=== PATIENT | female | born 1935 | race Hispanic/Latino ===

== ENCOUNTER → 2018-04-13 13:04 | Outpatient (CLI) | payer MEDICARE, OTHER, SELFPAY ==
--- NOTE | 2018-04-13 | DI.RAD.S_ITS ---
PROCEDURE: XR KNEE LT 3V INDICATIONS: KNEE PAIN, LEFT TECHNIQUE: 3 views of the knee were acquired. COMPARISON: None. FINDINGS: Bones: No fractures or dislocations. No suspicious bony lesions. Diffuse degenerative spurring. Moderate narrowing of the patellofemoral joint space. There is mild narrowing of medial lateral joint space. Soft tissues: No joint effusion. No suspicious soft tissue calcifications. 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 Dictated by: Mitch Medina M.D. on 04/13/2018 at 16:58 Approved by: Mitch Medina M.D. on 04/13/2018 at 16:59
== END ==
PROVIDERS: PCP Family Medicine; Visit Provider Family Medicine
DX: M25.562 Pain in left knee (principal); M17.12 Unilateral primary osteoarthritis, left knee
CPT/HCPCS: 73562

== ENCOUNTER 2018-11-28 11:14 | Emergency (ER) | payer MEDICARE, OTHER, SELFPAY ==
[2018-11-28] VITALS (8 sets, daily range): BP systolic 142–198; BP diastolic 58–99; PULSE 53–83; RESP 12–18; TEMP 36.7; O2SAT 98–99; BMI 19.7
--- NOTE | 2018-11-28 11:24 | DI.RAD.S_ITS ---
PROCEDURE: XR CHEST 1V INDICATIONS: chest pain TECHNIQUE: One view of the chest was acquired. COMPARISON: [facility], , CHEST 2 VIEW, 11/27/2006, 11:40. FINDINGS: Surgical changes and devices: None. Lungs and pleura: Lungs are clear. No pleural effusions or pneumothorax. Mediastinum: Mediastinal contours appear normal. Heart size is normal. Bones and chest wall: No suspicious bony lesions. Overlying soft tissues appear unremarkable. IMPRESSION: No acute disease. There are no imaging findings to explain patient's chest pain Dictated by: Gregg Hobbs M.D. on 11/28/2018 at 11:49 Approved by: Gregg Hobbs M.D. on 11/28/2018 at 11:50
[2018-11-28 11:50] LABS: Add Manual Diff / Slide Review NO; Basophils Absolute Auto 0 /uL (0-100); Basophils Percent Auto 0.7 % (0-2); Eosinophils Absolute Auto 100 /uL (0-450); Eosinophils Percent Auto 2.4 % (2-4); Hematocrit 37.6 % (36-46); Hemoglobin 12.5 g/dL (12.0-16.0); Lymphocytes Absolute Auto 1500 /uL (1100-4500); Mean Corpuscular HGB Conc 33.2 % (30-36); Mean Corpuscular Hemoglobin 31.7 PG (26-34); Mean Corpuscular Volume 95.6 fL (80-100); Monocytes Absolute Auto 200 /uL (0-900); Monocytes Percent Auto 5.8 % (3-14); Neutrophils Absolute Auto 2400 /uL (1500-7000); Neutrophils Percent Auto 55.1 % (50-75); Platelet Count 146 X10^3/uL (150-400); Red Blood Cell Count 3.94 X10^6/uL (4.0-5.2); Red Cell Distribution Width 13.3 % (11.6-14.8); White Blood Cell Count 4.3 X10^3/uL (4.5-11.0)
[2018-11-28 11:58] LABS: INR 0.9 (0.9-1.3)
--- NOTE | 2018-11-28 11:59 | ED.HA ---
HPI - Headache General Chief Complaint: Headache Stated Complaint: high bp, headache Time Seen by Provider: 11/28/18 11:35 History of Present Illness HPI Narrative: Patient an 83 old female who presents with headache and hypertension. Says she had right-sided headache all night last night. This morning she now right-sided neck pain. It hurts to turn her. No numbness tingling or weakness. No facial droop or speaking. She states that her blood pressure was elevated this morning so she took an extra lisinopril. She has no chest pain or heart palpitation. The patient actually does have a history of hypertension and intracranial aneurysm which was repaired. MD Complaint: headache Location: right Quality: throbbing Related Data Home Medications Medication Instructions Recorded Confirmed cholecalciferol (vitamin D3) 1,000 unit PO DAILY #0 05/06/11 11/28/18 [Vitamin D3] lisinopril 20 mg PO BID #0 05/06/11 11/28/18 raloxifene [Evista] 60 mg PO QPM #0 05/06/11 11/28/18 amlodipine [Norvasc] 5 mg PO QPM #0 08/09/16 11/28/18 atorvastatin [Lipitor] 10 mg PO BEDTIME #0 08/09/16 11/28/18 aspirin 325 mg PO QPM 11/28/18 11/28/18 ferrous sulfate 324 mg PO DAILY 11/28/18 11/28/18 folic acid 1 mg PO DAILY 11/28/18 11/28/18 omeprazole 20 mg PO BID 11/28/18 11/28/18 sulfasalazine 500 mg PO TID 11/28/18 11/28/18 Allergies Allergy/AdvReac Type Severity Reaction Status Date / Time ibuprofen [From MOTRIN] AdvReac Mild UPSET Unverified 11/28/18 11:21 STOMACH Review of Systems Review of Systems ROS Unobtainable: All systems reviewed & are unremarkable except as noted in HPI and below Constitutional Denies chills, Denies fever(s), Denies lethargy and Denies weakness Eyes Denies change in vision, Denies eye discharge, Denies irritation and Denies loss of vision Cardiovascular Denies chest pain, Denies irregular heart rhythm, Denies lightheadedness, Denies palpitations, Denies dyspnea, Denies dyspnea on exertion and Denies orthopnea Respiratory Denies cough, Denies dyspnea, Denies dyspnea on exertion and Denies wheezing Gastrointestinal Gastrointestinal: Denies abdominal pain, Denies change in bowel habits, Denies diarrhea, Denies nausea and Denies vomiting Genitourinary Denies hematuria, Denies flank pain, Denies urinary incontinence and Denies urinary urgency Musculoskeletal Denies back pain, Denies muscle weakness, Denies numbness and Denies tingling Integumentary/Breasts Denies pruritus, Denies erythema, Denies rash and Denies wounds Neurologic Denies loss of vision, Denies numbness, Denies tingling and Denies weakness Endocrine Denies palpitations Allergic/Immunologic Denies wheezing [facility] Medical History Hypertension (Acute) Intracranial aneurysm (Acute) Social History Smoking Status: Never smoker Social History Smoking Status: Never smoker Exam Initial Vital Signs Initial Vital Signs: Vital Signs Temperature 98.1 F 11/28/18 11:18 Pulse Rate 76 11/28/18 11:18 Respiratory Rate 14 11/28/18 11:18 Blood Pressure 198/82 H 11/28/18 11:18 Pulse Oximetry 99 11/28/18 11:18 GENERAL: Alert pleasant elderly female no acute distress HEENT: Head atraumatic,EOMI, pupils reactive, face symmetric, NECK: Right cervical neck muscle spasm decreased rotation due to pain pain reproducible to palpation. CARDIOVASCULAR: Regular rate and rhythm without murmurs, rubs or gallops. RESPIRATORY: Breath sounds equal bilaterally, no wheezes rales or rhonchi. ABDOMEN: Soft, nontender. Normoactive bowel sounds all 4 quadrants. No guarding or rebound. EXTREMITIES: Normal range of motion, no clubbing or edema. Neurovascularly intact NEUROLOGICAL: Alert and oriented x4.Normal gait and speech. Cranial nerves II through XII grossly intact. Good [id number], good [id number], strength equal bilaterally, no dysarthria or aphasia, sensation in tact to soft touch bilaterally, no visual changes, no facial droop SKIN: Warm, dry, no laceration, no petechiae, no rashes or lesions. Scores NIH Stroke Scale Level of Conciousness: Alert, keenly responsive Ask month/age: Answers both questions correctly. Open/close eyes, close hand: Performs both tasks correctly Best gaze horizontal: Normal Visual martinez: No visual loss Facial palsy: Normal symetrical movement Left arm drift: No drift for full 10 sec Right arm drift: No drift for full 10 sec Left leg drift: No drift for full 10 sec Right leg drift: No drift for full 10 sec Limb ataxia: Absent Sensory on face/arms/legs: Normal, no sensory loss Best language: No aphasia, normal Dysarthria: Normal Extinction or inattention: No abnormality Total NIH Stroke scale score: 0 Course Orders Ordered: ED Orders 11/28/18 11:24 XR chest 1V Stat EKG-12 Lead Stat 11/28/18 11:43 Complete Blood Count AUTO DIFF Stat Comprehensive Metabolic Panel Stat Lipase Stat Partial Thromboplastin Time Stat Prothrombin Time INR Stat Troponin & CK Cardiac Panel Stat Discontinued Medications Acetaminophen (Tylenol) 975 mg PO NOW ONE Stop: 11/28/18 12:04 Last Admin: 11/28/18 12:37 Dose: 975 mg Ketorolac Tromethamine (Toradol) 15 mg IV NOW ONE Stop: 11/28/18 14:58 Last Admin: 11/28/18 15:19 Dose: 15 mg Vital Signs - 8 hr 11/28/18 12:00 11/28/18 12:42 11/28/18 13:00 Pulse Rate 65 83 61 Respiratory Rate 12 Blood Pressure Blood Pressure [Left Arm] 172/62 H 186/99 H 142/58 H Pulse Oximetry 98 11/28/18 14:00 11/28/18 15:00 11/28/18 18:21 Pulse Rate 53 L 74 Respiratory Rate 13 16 Blood Pressure 191/78 H Blood Pressure [Left Arm] 144/58 H 147/60 H Pulse Oximetry 99 MDM - Headache Lab Data Attestation: I reviewed the patient's lab results. Result diagrams: 11/28/18 11:43 11/28/18 11:43 Lab Results 11/28/18 11/28/18 11/28/18 Range/Units 11:43 11:43 11:43 WBC 4.3 L (4.5-11.0) X10^3/uL RBC 3.94 L (4.0-5.2) X10^6/uL Hgb 12.5 (12.0-16.0) g/dL Hct 37.6 (36-46) % MCV 95.6 (80-100) fL MCH 31.7 (26-34) PG MCHC 33.2 (30-36) % RDW 13.3 (11.6-14.8) % Plt Count 146 L (150-400) X10^3/uL Neut % (Auto) 55.1 (50-75) % Lymph % (Auto) 36.0 (25-40) % [place] % (Auto) 5.8 (3-14) % Eos % (Auto) 2.4 (2-4) % Baso % (Auto) 0.7 (0-2) % Neut # (Auto) 2400 (2404-6869) /uL Lymph # (Auto) 1500 (7308-7719) /uL [place] # (Auto) 200 (0-900) /uL Eos # (Auto) 100 (0-450) /uL Baso # (Auto) 0 (0-100) /uL PT 10.0 L (10.1-12.7) SECONDS INR 0.9 (0.9-1.3) APTT 33 (26.4-36.2) SECONDS Sodium 140 (137-145) mmol/L Potassium 3.9 (3.4-5.1) mmol/L Chloride 105 (98-107) mmol/L Carbon Dioxide 25 (22-32) mmol/L BUN 17 (7-17) mg/dL Creatinine 0.90 (0.52-1.04) mg/dL Estimated GFR 59.9 L (>60) mL/min BUN/Creatinine Ratio 18.9 (6-22) Glucose 98 (80-110) mg/dL Calcium 9.1 (8.4-10.2) mg/dL Total Bilirubin 0.3 (0.2-1.3) mg/dL AST 34 (14-36) IU/L ALT 7 L (9-52) IU/L Alkaline Phosphatase 84 (38-126) U/L Total Creatine Kinase 67 (30-135) U/L CK-MB (CK-2) TNP CK-MB (CK-2) Rel Index TNP Troponin I < 0.012 (0.01-0.034) ng/mL Total Protein 7.7 (6.3-8.2) g/dL Albumin 4.4 (3.5-5.0) g/dL Globulin 3.3 (1.7-4.1) g/dL Albumin/Globulin Ratio 1.3 (1.0-2.8) Lipase 81 (23-300) U/L Urine Dip Bedside Urine Glucose Negative Bedside Urine Bilirubin - Negative Bedside Urine Ketone - Negative Urine Specific [place] 1.015 Bedside Urine Occult Blood - Negative Bedside Urine pH 6.0 Bedside Urine Protein - Negative Bedside Urine Urobilinogen - Negative Bedside Urine Nitrite - Negative Bedside Urine Leukocytes - Negative Esterase Imaging Data CT scan - head: Radiologist's impression: [facility] report: No acute intracranial abnormality. Left frontal meningioma. ECG Data Attestation: I personally reviewed and interpreted this ECG as follows: Prior ECG tracings: not available for review Interpretation: Normal sinus rhythm rate 74 CT interval [address] elevation no T-wave inversions no priors to compare minimal <1mm ST depression in V4 and V5 MDM Narrative Medical decision making narrative: The patient comes in with headache from last night in history of intracranial without repair at this time patient does need head CT. CT is down at [facility]. Patient agrees to transport to [facility] for head CT. She actually does have significant right trapezius neck spasm which is resolved after some massage. However she still is having pain on the right side of her head. She is given Toradol to help with that. Patient finally returns from [facility] negative head CT head is overall better have her blood pressure has increased. She is due for her nightly blood pressure medication. Discharge Plan Departure Patient Disposition: Home Clinical Impression: Headache Qualifiers: Headache type: unspecified Headache chronicity pattern: acute headache Intractability: not intractable Qualified Code(s): R51 - Headache Discharge Date/Time: 11/28/18 18:07 Interventions: ED Discharge Assessment Last Done: 11/28/18 18:21 Activity Restrictions/Additional Instructions: *You have been diagnosed with headache *What to do: At this time blood work and head CT are negative. I think her headache was from muscle spasm on the right-sided your neck *Continue to take medications as directed Tylenol 650 mg every 4-6 hours if needed for pain *Follow up with your primary care provider in 2-3 days *Return to ER if you should have worsening headache weakness, difficulty speaking, facial droop or any new, worsening or concerning symptoms Prescriptions: No Action lisinopril 10 MG tablet 20 mg PO BID Qty: 0 RF: 0 raloxifene [Evista] 60 MG tablet 60 mg PO QPM Qty: 0 RF: 0 cholecalciferol (vitamin D3) [Vitamin D3] 1,000 unit Tablet 1,000 unit PO DAILY Qty: 0 RF: 0 amlodipine [Norvasc] 5 MG tablet 5 mg PO QPM Qty: 0 RF: 0 atorvastatin [Lipitor] 10 MG tablet 10 mg PO BEDTIME Qty: 0 RF: 0 sulfasalazine 500 mg tablet 500 mg PO TID RF: 0 aspirin 325 mg tablet,delayed release (DR/EC) 325 mg PO QPM RF: 0 omeprazole 20 mg capsule,delayed release(DR/EC) 20 mg PO BID RF: 0 folic acid 1 mg tablet 1 mg PO DAILY RF: 0 ferrous sulfate 324 mg (65 mg iron) tablet,delayed release (DR/EC) 324 mg PO DAILY RF: 0 Referrals: Vaibhav Arevalo MD [Primary Care Provider] -
[2018-11-28 12:00] LABS: PTT Partial Thromboplastin Tim 33 SECONDS (26.4-36.2)
--- NOTE | 2018-11-28 12:02 | PC.NURSE ---
Patient reports a frontal headache last night took one tylenol. Woke this morning with right sided neck pain, worse with movement of neck and head. Tender to palpation of neck. reports frontal headache has resolved but ongoing neck pain. CMS intact. Negative neuro exam
[2018-11-28 12:03] LABS: Alanine Aminotransferase 7 IU/L (9-52); Albumin 4.4 g/dL (3.5-5.0); Albumin Globulin Ratio 1.3 (1.0-2.8); Alkaline Phosphatase 84 U/L (38-126); Aspartate Aminotransferase 34 IU/L (14-36); BUN Creatinine Ratio 18.9 (6-22); Bilirubin Total 0.3 mg/dL (0.2-1.3); Blood Urea Nitrogen 17 mg/dL (7-17); Calcium 9.1 mg/dL (8.4-10.2); Carbon Dioxide 25 mmol/L (22-32); Chloride 105 mmol/L (98-107); Creatine Kinase 67 U/L (30-135); Estimated Glomerular Filt Rate 59.9 mL/min (>60); Globulin 3.3 g/dL (1.7-4.1); Glucose 98 mg/dL (80-110); HEMOLYSIS 16 (0-50); Lipase 81 U/L (23-300); Potassium 3.9 mmol/L (3.4-5.1); Sodium 140 mmol/L (137-145); Total Protein 7.7 g/dL (6.3-8.2)
--- NOTE | 2018-11-28 12:04 | ED_ITS ---
HPI - Headache General Chief Complaint: Headache Stated Complaint: high bp, headache Time Seen by Provider: 11/28/18 11:35 History of Present Illness HPI Narrative: Patient an 83 old female who presents with headache and hypertension. Says she had right-sided headache all night last night. This morning she now right-sided neck pain. It hurts to turn her. No numbness tingling or weakness. No facial droop or speaking. She states that her blood pressure was elevated this morning so she took an extra lisinopril. She has no chest pain or heart palpitation. The patient actually does have a history of hypertension and intracranial aneurysm which was repaired. MD Complaint: headache Location: right Quality: throbbing Related Data Home Medications Medication Instructions Recorded Confirmed cholecalciferol (vitamin D3) 1,000 unit PO DAILY #0 05/06/11 11/28/18 [Vitamin D3] lisinopril 20 mg PO BID #0 05/06/11 11/28/18 raloxifene [Evista] 60 mg PO QPM #0 05/06/11 11/28/18 amlodipine [Norvasc] 5 mg PO QPM #0 08/09/16 11/28/18 atorvastatin [Lipitor] 10 mg PO BEDTIME #0 08/09/16 11/28/18 aspirin 325 mg PO QPM 11/28/18 11/28/18 ferrous sulfate 324 mg PO DAILY 11/28/18 11/28/18 folic acid 1 mg PO DAILY 11/28/18 11/28/18 omeprazole 20 mg PO BID 11/28/18 11/28/18 sulfasalazine 500 mg PO TID 11/28/18 11/28/18 Allergies Allergy/AdvReac Type Severity Reaction Status Date / Time ibuprofen [From MOTRIN] AdvReac Mild UPSET Unverified 11/28/18 11:21 STOMACH Review of Systems Review of Systems ROS Unobtainable: All systems reviewed & are unremarkable except as noted in HPI and below Constitutional Denies chills, Denies fever(s), Denies lethargy and Denies weakness Eyes Denies change in vision, Denies eye discharge, Denies irritation and Denies loss of vision Cardiovascular Denies chest pain, Denies irregular heart rhythm, Denies lightheadedness, Denies palpitations, Denies dyspnea, Denies dyspnea on exertion and Denies orthopnea Respiratory Denies cough, Denies dyspnea, Denies dyspnea on exertion and Denies wheezing Gastrointestinal Gastrointestinal: Denies abdominal pain, Denies change in bowel habits, Denies diarrhea, Denies nausea and Denies vomiting Genitourinary Denies hematuria, Denies flank pain, Denies urinary incontinence and Denies urinary urgency Musculoskeletal Denies back pain, Denies muscle weakness, Denies numbness and Denies tingling Integumentary/Breasts Denies pruritus, Denies erythema, Denies rash and Denies wounds Neurologic Denies loss of vision, Denies numbness, Denies tingling and Denies weakness Endocrine Denies palpitations Allergic/Immunologic Denies wheezing [facility] Medical History Hypertension (Acute) Intracranial aneurysm (Acute) Social History Smoking Status: Never smoker Social History Smoking Status: Never smoker Exam Initial Vital Signs Initial Vital Signs: Vital Signs Temperature 98.1 F 11/28/18 11:18 Pulse Rate 76 11/28/18 11:18 Respiratory Rate 14 11/28/18 11:18 Blood Pressure 198/82 H 11/28/18 11:18 Pulse Oximetry 99 11/28/18 11:18 GENERAL: Alert pleasant elderly female no acute distress HEENT: Head atraumatic,EOMI, pupils reactive, face symmetric, NECK: Right cervical neck muscle spasm decreased rotation due to pain pain reproducible to palpation. CARDIOVASCULAR: Regular rate and rhythm without murmurs, rubs or gallops. RESPIRATORY: Breath sounds equal bilaterally, no wheezes rales or rhonchi. ABDOMEN: Soft, nontender. Normoactive bowel sounds all 4 quadrants. No guarding or rebound. EXTREMITIES: Normal range of motion, no clubbing or edema. Neurovascularly intact NEUROLOGICAL: Alert and oriented x4.Normal gait and speech. Cranial nerves II through XII grossly intact. Good [id number], good udhg-[id number], strength equal bilaterally, no dysarthria or aphasia, sensation in tact to soft touch bilaterally, no visual changes, no facial droop SKIN: Warm, dry, no laceration, no petechiae, no rashes or lesions. Scores NIH Stroke Scale Level of Conciousness: Alert, keenly responsive Ask month/age: Answers both questions correctly. Open/close eyes, close hand: Performs both tasks correctly Best gaze horizontal: Normal Visual martinez: No visual loss Facial palsy: Normal symetrical movement Left arm drift: No drift for full 10 sec Right arm drift: No drift for full 10 sec Left leg drift: No drift for full 10 sec Right leg drift: No drift for full 10 sec Limb ataxia: Absent Sensory on face/arms/legs: Normal, no sensory loss Best language: No aphasia, normal Dysarthria: Normal Extinction or inattention: No abnormality Total NIH Stroke scale score: 0 Course Orders Ordered: ED Orders 11/28/18 11:24 XR chest 1V Stat EKG-12 Lead Stat 11/28/18 11:43 Complete Blood Count AUTO DIFF Stat Comprehensive Metabolic Panel Stat Lipase Stat Partial Thromboplastin Time Stat Prothrombin Time INR Stat Troponin & CK Cardiac Panel Stat Discontinued Medications Acetaminophen (Tylenol) 975 mg PO NOW ONE Stop: 11/28/18 12:04 Last Admin: 11/28/18 12:37 Dose: 975 mg Ketorolac Tromethamine (Toradol) 15 mg IV NOW ONE Stop: 11/28/18 14:58 Last Admin: 11/28/18 15:19 Dose: 15 mg Vital Signs - 8 hr 11/28/18 12:00 11/28/18 12:42 11/28/18 13:00 Pulse Rate 65 83 61 Respiratory Rate 12 Blood Pressure Blood Pressure [Left Arm] 172/62 H 186/99 H 142/58 H Pulse Oximetry 98 11/28/18 14:00 11/28/18 15:00 11/28/18 18:21 Pulse Rate 53 L 74 Respiratory Rate 13 16 Blood Pressure 191/78 H Blood Pressure [Left Arm] 144/58 H 147/60 H Pulse Oximetry 99 MDM - Headache Lab Data Attestation: I reviewed the patient's lab results. Result diagrams: 11/28/18 11:43 11/28/18 11:43 Lab Results 11/28/18 11/28/18 11/28/18 Range/Units 11:43 11:43 11:43 WBC 4.3 L (4.5-11.0) X10^3/uL RBC 3.94 L (4.0-5.2) X10^6/uL Hgb 12.5 (12.0-16.0) g/dL Hct 37.6 (36-46) % MCV 95.6 (80-100) fL MCH 31.7 (26-34) PG MCHC 33.2 (30-36) % RDW 13.3 (11.6-14.8) % Plt Count 146 L (150-400) X10^3/uL Neut % (Auto) 55.1 (50-75) % Lymph % (Auto) 36.0 (25-40) % [place] % (Auto) 5.8 (3-14) % Eos % (Auto) 2.4 (2-4) % Baso % (Auto) 0.7 (0-2) % Neut # (Auto) 2400 (2666-4925) /uL Lymph # (Auto) 1500 (9741-0773) /uL [place] # (Auto) 200 (0-900) /uL Eos # (Auto) 100 (0-450) /uL Baso # (Auto) 0 (0-100) /uL PT 10.0 L (10.1-12.7) SECONDS INR 0.9 (0.9-1.3) APTT 33 (26.4-36.2) SECONDS Sodium 140 (137-145) mmol/L Potassium 3.9 (3.4-5.1) mmol/L Chloride 105 (98-107) mmol/L Carbon Dioxide 25 (22-32) mmol/L BUN 17 (7-17) mg/dL Creatinine 0.90 (0.52-1.04) mg/dL Estimated GFR 59.9 L (>60) mL/min BUN/Creatinine Ratio 18.9 (6-22) Glucose 98 (80-110) mg/dL Calcium 9.1 (8.4-10.2) mg/dL Total Bilirubin 0.3 (0.2-1.3) mg/dL AST 34 (14-36) IU/L ALT 7 L (9-52) IU/L Alkaline Phosphatase 84 (38-126) U/L Total Creatine Kinase 67 (30-135) U/L CK-MB (CK-2) TNP CK-MB (CK-2) Rel Index TNP Troponin I < 0.012 (0.01-0.034) ng/mL Total Protein 7.7 (6.3-8.2) g/dL Albumin 4.4 (3.5-5.0) g/dL Globulin 3.3 (1.7-4.1) g/dL Albumin/Globulin Ratio 1.3 (1.0-2.8) Lipase 81 (23-300) U/L Urine Dip Bedside Urine Glucose Negative Bedside Urine Bilirubin - Negative Bedside Urine Ketone - Negative Urine Specific [place] 1.015 Bedside Urine Occult Blood - Negative Bedside Urine pH 6.0 Bedside Urine Protein - Negative Bedside Urine Urobilinogen - Negative Bedside Urine Nitrite - Negative Bedside Urine Leukocytes - Negative Esterase Imaging Data CT scan - head: Radiologist's impression: [facility] report: No acute intracranial abnormality. Left frontal meningioma. ECG Data Attestation: I personally reviewed and interpreted this ECG as follows: Prior ECG tracings: not available for review Interpretation: Normal sinus rhythm rate 74 [place] interval [address] elevation no T-wave inversions no priors to compare minimal <1mm ST depression in V4 and V5 MDM Narrative Medical decision making narrative: The patient comes in with headache from last night in history of intracranial without repair at this time patient does need head CT. CT is down at [facility]. Patient agrees to transport to [facility] for head CT. She actually does have significant right trapezius neck spasm which is resolved after some massage. However she still is having pain on the right side of her head. She is given Toradol to help with that. Patient finally returns from [facility] negative head CT head is overall better have her blood pressure has increased. She is due for her nightly blood pressure medication. Discharge Plan Departure Patient Disposition: Home Clinical Impression: Headache Qualifiers: Headache type: unspecified Headache chronicity pattern: acute headache Intractability: not intractable Qualified Code(s): R51 - Headache Discharge Date/Time: 11/28/18 18:07 Interventions: ED Discharge Assessment Last Done: 11/28/18 18:21 Activity Restrictions/Additional Instructions: *You have been diagnosed with headache *What to do: At this time blood work and head CT are negative. I think her headache was from muscle spasm on the right-sided your neck *Continue to take medications as directed Tylenol 650 mg every 4-6 hours if needed for pain *Follow up with your primary care provider in 2-3 days *Return to ER if you should have worsening headache weakness, difficulty speaking, facial droop or any new, worsening or concerning symptoms Prescriptions: No Action lisinopril 10 MG tablet 20 mg PO BID Qty: 0 RF: 0 raloxifene [Evista] 60 MG tablet 60 mg PO QPM Qty: 0 RF: 0 cholecalciferol (vitamin D3) [Vitamin D3] 1,000 unit Tablet 1,000 unit PO DAILY Qty: 0 RF: 0 amlodipine [Norvasc] 5 MG tablet 5 mg PO QPM Qty: 0 RF: 0 atorvastatin [Lipitor] 10 MG tablet 10 mg PO BEDTIME Qty: 0 RF: 0 sulfasalazine 500 mg tablet 500 mg PO TID RF: 0 aspirin 325 mg tablet,delayed release (DR/EC) 325 mg PO QPM RF: 0 omeprazole 20 mg capsule,delayed release(DR/EC) 20 mg PO BID RF: 0 folic acid 1 mg tablet 1 mg PO DAILY RF: 0 ferrous sulfate 324 mg (65 mg iron) tablet,delayed release (DR/EC) 324 mg PO DAILY RF: 0 Referrals: Vaibhav Arevalo MD [Primary Care Provider] -
[2018-11-28 12:14] LABS: Troponin I < 0.012 ng/mL (0.01-0.034)
[2018-11-28] MEDS: ACETAMINOPHEN 325 MG TABLET 975 MG PO (12:37)
[2018-11-28] MEDS: KETOROLAC 60 MG/2 ML VIAL 15 MG IV (15:19)
--- NOTE | 2018-11-28 17:51 | PC.NURSE ---
Patient returns to ED from transfer to [facility] for CT. Reports some improvement in pain on right side of neck and headache.
== END 2018-11-28 18:07 | disposition home or self-care (01) ==
PROVIDERS: Emergency Provider Emergency Medicine; PCP Family Medicine
DX: R51 Headache (principal); I10 Essential (primary) hypertension; M79.2 Neuralgia and neuritis, unspecified
CPT/HCPCS: 36591; 71045; 80053; 81003; 82550; 83690; 84484; 85025; 85610; 85730; 93005; 93010; 96374; 99284; 99285; J1885

== ENCOUNTER 2019-04-11 20:02 | Emergency (ER) | payer MEDICARE, OTHER, SELFPAY ==
[2019-04-11 20:08] VITALS: BP 171/69; PULSE 80; RESP 18; TEMP 36.3; O2SAT 97; BMI 19.3
[2019-04-11 20:32] LABS: Add Manual Diff / Slide Review NO; Basophils Absolute Auto 0 /uL (0-100); Basophils Percent Auto 0.5 % (0-2); Eosinophils Absolute Auto 100 /uL (0-450); Eosinophils Percent Auto 2.4 % (2-4); Hematocrit 35.9 % (36-46); Hemoglobin 11.9 g/dL (12.0-16.0); Lymphocytes Absolute Auto 1500 /uL (1100-4500); Lymphocytes Percent Auto 27.3 % (25-40); Mean Corpuscular HGB Conc 33.3 % (30-36); Mean Corpuscular Hemoglobin 31.8 PG (26-34); Mean Corpuscular Volume 95.4 fL (80-100); Monocytes Absolute Auto 300 /uL (0-900); Monocytes Percent Auto 5.9 % (3-14); Neutrophils Absolute Auto 3600 /uL (1500-7000); Neutrophils Percent Auto 63.9 % (50-75); Platelet Count 143 X10^3/uL (150-400); Red Blood Cell Count 3.76 X10^6/uL (4.0-5.2); Red Cell Distribution Width 12.5 % (11.6-14.8); White Blood Cell Count 5.7 X10^3/uL (4.5-11.0)
[2019-04-11 20:40] LABS: INR 0.8 (0.9-1.3); Prothrombin Time 9.5 SECONDS (10.1-12.7)
[2019-04-11 20:42] LABS: PTT Partial Thromboplastin Tim 31 SECONDS (26.4-36.2)
[2019-04-11 20:44] LABS: Alanine Aminotransferase 6 IU/L (9-52); Albumin 4.3 g/dL (3.5-5.0); Albumin Globulin Ratio 1.3 (1.0-2.8); Alkaline Phosphatase 99 U/L (38-126); Aspartate Aminotransferase 36 IU/L (14-36); BUN Creatinine Ratio 18.2 (6-22); Bilirubin Total 0.4 mg/dL (0.2-1.3); Blood Urea Nitrogen 20 mg/dL (7-17); Carbon Dioxide 26 mmol/L (22-32); Chloride 104 mmol/L (98-107); Estimated Glomerular Filt Rate 47.6 mL/min (>60); Globulin 3.3 g/dL (1.7-4.1); Glucose 137 mg/dL (80-110); HEMOLYSIS 39 (0-50); Lipase 117 U/L (23-300); Potassium 3.7 mmol/L (3.4-5.1); Sodium 142 mmol/L (137-145); Total Protein 7.6 g/dL (6.3-8.2)
[2019-04-11] MEDS: ONDANSETRON 4 MG/2 ML INJ IV (21:01)
--- NOTE | 2019-04-11 21:04 | PC.NURSE ---
Pt arrived to ED with L flank pain radiating to L abd. h/o kidney stones. 03/23 pain. labs drawn and UA obtained in triage. IV placed and zofran given. verbal order for torodol. MD made aware. awaiting MD assessment
[2019-04-11] MEDS: KETOROLAC 60 MG/2 ML VIAL 15 MG IV (21:07)
--- NOTE | 2019-04-11 21:26 | ED_ITS ---
HPI - Abdominal Pain General Chief Complaint: Abdominal Pain Stated Complaint: LT SIDED PAIN Time Seen by Provider: 04/11/19 21:03 Source: patient Mode of arrival: ambulatory Limitations: no limitations History of Present Illness HPI narrative: Patient is an 83-year-old female with history of kidney stones presenting with left upper quadrant pain which started abruptly at 6:00 p.m. this evening. She says this feels similar to her previous kidney stones. She denies any nausea or vomiting. She was well earlier in the day. No hematuria or pain frequent urination. MD complaint: abdominal pain Onset (ago): hour(s) Pain Consistency: now resolved Related Data Home Medications Medication Instructions Recorded Confirmed cholecalciferol (vitamin D3) 1,000 unit PO DAILY #0 05/06/11 11/28/18 [Vitamin D3] lisinopril 20 mg PO BID #0 05/06/11 11/28/18 raloxifene [Evista] 60 mg PO QPM #0 05/06/11 11/28/18 amlodipine [Norvasc] 5 mg PO QPM #0 08/09/16 11/28/18 atorvastatin [Lipitor] 10 mg PO BEDTIME #0 08/09/16 11/28/18 aspirin 325 mg PO QPM 11/28/18 11/28/18 ferrous sulfate 324 mg PO DAILY 11/28/18 11/28/18 folic acid 1 mg PO DAILY 11/28/18 11/28/18 omeprazole 20 mg PO BID 11/28/18 11/28/18 sulfasalazine 500 mg PO TID 11/28/18 11/28/18 Previous Rx's Medication Instructions Recorded hydrocodone-acetaminophen [[place]] 1 tab PO Q6H PRN #10 tab 04/11/19 ondansetron 4 mg PO Q8H PRN #10 tab 04/11/19 tamsulosin [Flomax] 0.4 mg PO DAILY #10 cap 04/11/19 Allergies Allergy/AdvReac Type Severity Reaction Status Date / Time ibuprofen [From MOTRIN] AdvReac Mild UPSET Verified 04/11/19 20:08 STOMACH Review of Systems Review of Systems Narrative: GENERAL: Denies chills, fatigue, malaise, fever, sweats, travel HEENT: Denies sinus pain, ear pain, sore throat, difficulty swallowing, neck pain RESPIRATORY: Denies dyspnea, cough, wheezing, hemoptysis, sputum. CARDIOVASCULAR: Denies chest pain, palpitations, orthopnea, edema GASTROINTESTINAL: See HPI : Denies dysuria, frequency, incontinence, hematuria, urinary retention, flank pain. MUSCULOSKELETAL: Denies weakness, joint pain, or bony pain SKIN: No rash, no erythema, no pruritus NEUROLOGIC: Denies weakness, dizziness, headache, numbness, change in speech, confusion PSYCHIATRIC: No concerning psychosocial issues. 12 point review of systems is negative except for those stated above and HPI [facility] Medical History Hypertension (Acute) Intracranial aneurysm (Acute) Kidney stones (Acute) Social History Smoking Status: Never smoker Social History Smoking Status: Never smoker Exam Initial Vital Signs Initial Vital Signs: Vital Signs Temperature 97.3 F L 04/11/19 20:08 Pulse Rate 80 04/11/19 20:08 Respiratory Rate 18 04/11/19 20:08 Blood Pressure 171/69 H 04/11/19 20:08 Pulse Oximetry 97 04/11/19 20:08 GENERAL: Alert pleasant elderly female no distress HEENT: Head atraumatic,EOMI, pupils reactive, face symmetric CARDIOVASCULAR: Regular rate and rhythm without murmurs, rubs or gallops. RESPIRATORY: Breath sounds equal bilaterally, no wheezes rales or rhonchi. ABDOMEN: Soft, mild left upper quadrant pain no guarding no rebound : No CVA tenderness, no left-sided pain EXTREMITIES: Normal range of motion, no clubbing or edema. Neurovascularly intact NEUROLOGICAL: Alert and oriented x4.Normal gait and speech. Cranial nerves II through XII grossly intact. SKIN: Warm, dry, no laceration, no petechiae, no rashes or lesions. Course Orders Ordered: ED Orders 04/11/19 20:14 EKG-12 Lead Stat 04/11/19 20:22 Complete Blood Count AUTO DIFF Stat Comprehensive Metabolic Panel Stat Lipase Stat Partial Thromboplastin Time Stat Prothrombin Time INR Stat 04/11/19 21:32 CT kidney ureter bladder (KUB) Stat Discontinued Medications Hydrocodone Bitart/Acetaminophen (Vicodin Prepack) 1 bottle MISC SEEINSTR ONE Stop: 04/11/19 22:37 Last Admin: 04/11/19 22:59 Dose: 1 bottle Documented by: LOYD Ketorolac Tromethamine (Toradol) 15 mg IV NOW ONE Stop: 04/11/19 21:03 Last Admin: 04/11/19 21:07 Dose: 15 mg Documented by: AHSAN Ondansetron HCl (Zofran) 4 mg IV NOW ONE Stop: 04/11/19 20:57 Last Admin: 04/11/19 21:01 Dose: 4 mg Documented by: AHSAN Ondansetron HCl (Zofran Odt Prepack) 1 bottle MISC SEEINSTR ONE Stop: 04/11/19 22:37 Last Admin: 04/11/19 22:59 Dose: 1 bottle Documented by: LOYD Vital Signs Vital signs: Vital Signs - 8 hr 04/11/19 20:08 04/11/19 22:59 Temperature 97.3 F L Pulse Rate 80 73 Respiratory Rate 18 Blood Pressure 171/69 H 158/53 H Pulse Oximetry 97 MDM - Abdominal Pain Lab Data Attestation: I reviewed the patient's lab results. Result diagrams: 04/11/19 20:22 04/11/19 20:22 Labs: Lab Results 04/11/19 04/11/19 04/11/19 Range/Units 20:22 20:22 20:22 WBC 5.7 (4.5-11.0) X10^3/uL RBC 3.76 L (4.0-5.2) X10^6/uL Hgb 11.9 L (12.0-16.0) g/dL Hct 35.9 L (36-46) % MCV 95.4 (80-100) fL MCH 31.8 (26-34) PG MCHC 33.3 (30-36) % RDW 12.5 (11.6-14.8) % Plt Count 143 L (150-400) X10^3/uL Neut % (Auto) 63.9 (50-75) % Lymph % (Auto) 27.3 (25-40) % [place] % (Auto) 5.9 (3-14) % Eos % (Auto) 2.4 (2-4) % Baso % (Auto) 0.5 (0-2) % Neut # (Auto) 3600 (8981-4471) /uL Lymph # (Auto) 1500 (2664-0985) /uL [place] # (Auto) 300 (0-900) /uL Eos # (Auto) 100 (0-450) /uL Baso # (Auto) 0 (0-100) /uL PT 9.5 L (10.1-12.7) SECONDS INR 0.8 L (0.9-1.3) APTT 31 D (26.4-36.2) SECONDS Sodium 142 (137-145) mmol/L Potassium 3.7 (3.4-5.1) mmol/L Chloride 104 (98-107) mmol/L Carbon Dioxide 26 (22-32) mmol/L BUN 20 H (7-17) mg/dL Creatinine 1.10 H (0.52-1.04) mg/dL Estimated GFR 47.6 L (>60) mL/min BUN/Creatinine Ratio 18.2 (6-22) Glucose 137 H (80-110) mg/dL Calcium 9.0 (8.4-10.2) mg/dL Total Bilirubin 0.4 (0.2-1.3) mg/dL AST 36 (14-36) IU/L ALT 6 L (9-52) IU/L Alkaline Phosphatase 99 (38-126) U/L Total Protein 7.6 (6.3-8.2) g/dL Albumin 4.3 (3.5-5.0) g/dL Globulin 3.3 (1.7-4.1) g/dL Albumin/Globulin Ratio 1.3 (1.0-2.8) Lipase 117 (23-300) U/L Point of care testing: Urine Dip Bedside Urine Glucose Negative Bedside Urine Bilirubin - Negative Bedside Urine Ketone - Negative Urine Specific [place] 1.020 Bedside Urine Occult Blood +++ Bedside Urine pH 6.0 Bedside Urine Protein - Negative Bedside Urine Urobilinogen - Negative Bedside Urine Nitrite - Negative Bedside Urine Leukocytes +/- [address] scan - abdomen: Radiologist's impression: PROCEDURE: CT KIDNEY URETER BLADDER (KUB) INDICATIONS: left flank pain TECHNIQUE: Noncontrast 5 mm thick sections acquired from the diaphragms to the symphysis. 5 mm thick coronal and sagittal reformats were then performed. For radiation dose reduction, the following was used: automated exposure control, adjustment of mA and/or kV according to patient size. COMPARISON: None. FINDINGS: Image quality: Excellent. Lung bases: Lung bases are clear. Heart size is normal. Urinary system: Both kidneys are normal in size. A nonobstructing 4 mm in diameter calculus is present within the left lower pole. No right hydronephrosis. There is mild left pelviectasis. A 6 mm diameter calculus is present within the proximal left ureter (series 2, image 39). The downstream left ureter demonstrates normal caliber. The bladder is decompressed. No bladder calculi. Other solid organs: Liver is normal in size. Gallbladder is surgically absent. Pancreas is normal in contours. Spleen is normal in size. No adrenal nodules. Peritoneum and bowel: Unenhanced bowel loops demonstrate normal wall thickness and caliber. The appendix is not visualized; however there is no discrete right lower quadrant fluid or fat stranding to suggest acute appendicitis. There are extensive sigmoid diverticula. No evidence for diverticulitis. No free fluid or air. Nodes and vessels: No retroperitoneal or mesenteric adenopathy by size criteria. Aorta and inferior vena cava are normal in caliber. There are scattered atheromatous calcifications throughout the aorta and iliac arteries bilaterally. Abdominal wall: No ventral hernias. Pelvis: No free pelvic fluid. No inguinal hernias or adenopathy. Bones: No suspicious bony lesions. No vertebral body compression fractures. Severe degenerative changes are present throughout the thoracolumbar spine. IMPRESSION: 1. Left ureterolithiasis with mild pelviectasis. These findings suggest probable intermittent ureteral obstruction of the proximal left ureter. No fat stranding to suggest calyceal rupture. 2. Nonobstructing left nephrolithiasis. 2. Diverticulosis. No acute diverticulitis. These findings were discussed with Dr. Elliott at 9:57 PM on 04/11/19. Dictated by: Asha Brownlee M.D. on 04/11/2019 at 21:52 MDM Narrative Medical decision making narrative: Patient has not had any further pain in the ED after Toradol. Radiologist called to inform me of a 6 mm kidney stone. It looks like it is about to start moving really has not started yet no hydronephrosis. Patient's creatinine up a little today is 1.1 previously 0.9. She previously saw Urology Dr. Harp who has since retired. has a urologist up in [place] they will likely get in touch with that Urology group . Discharge Plan Departure Patient Disposition: Home Clinical Impression: Calculus of kidney Discharge Date/Time: 04/11/19 23:00 Activity Restrictions/Additional Instructions: *Increase fluid intake *Call urology office tomorrow, to schedule follow-up appointment. Strain urine, try to catch stone -If you should have fever, or pain is uncontrolled with medication at home or any other concerning symptoms return to ER for further evaluation MEDICATIONS Take Motrin 600 mg every 8 hours as needed for pain Take [place] every 6 hours if needed for severe pain, you can take 1/2 tablet if needed Take Zofran every 8 hours if needed for nausea Take fluids 0.4 mg once a day for 1 week to help with passage of stone CONTROLLED SUBSTANCE DISCHARGE (Narcotoic/benzodiazepine) 1. You have been prescribed narcotic medications, it does have acetaminophen/Tylenol/paracetamol in it so do not take extra Tylenol or Tylenol containing products 2. Please understand that we cannot provide further refills of narcotics, benzodiazepines or controlled substances through the ED and her pain management will need to be through your provider. 3. While on these medications you cannot drive or operate heavy machinery. 4. You cannot sign legal documents or perform any duties such as this. 5. As long as you're taking opiate pain medications he should also be taking a stool softener such as Colace, Dulcolax, MiraLAX or prune juice, to help avoid constipation. Prescriptions: New tamsulosin [Flomax] 0.4 mg capsule 0.4 mg PO DAILY Qty: 10 RF: 0 hydrocodone-acetaminophen [[place]] 5-325 mg tablet 1 tab PO Q6H PRN (Reason: pain) Qty: 10 RF: 0 ondansetron 4 mg tablet,disintegrating 4 mg PO Q8H PRN (Reason: nausea and vomiting) Qty: 10 RF: 0 No Action lisinopril 10 MG tablet 20 mg PO BID Qty: 0 RF: 0 raloxifene [Evista] 60 MG tablet 60 mg PO QPM Qty: 0 RF: 0 cholecalciferol (vitamin D3) [Vitamin D3] 1,000 unit Tablet 1,000 unit PO DAILY Qty: 0 RF: 0 amlodipine [Norvasc] 5 MG tablet 5 mg PO QPM Qty: 0 RF: 0 atorvastatin [Lipitor] 10 MG tablet 10 mg PO BEDTIME Qty: 0 RF: 0 sulfasalazine 500 mg tablet 500 mg PO TID RF: 0 aspirin 325 mg tablet,delayed release (DR/EC) 325 mg PO QPM RF: 0 omeprazole 20 mg capsule,delayed release(DR/EC) 20 mg PO BID RF: 0 folic acid 1 mg tablet 1 mg PO DAILY RF: 0 ferrous sulfate 324 mg (65 mg iron) tablet,delayed release (DR/EC) 324 mg PO DAILY RF: 0 Referrals: Pauline Isbell MD [Non-Staff] - Wild Mcgee MD [Non-Staff] - Vaibhav Arevalo MD [Primary Care Provider] -
--- NOTE | 2019-04-11 21:32 | DI.CT.S_ITS ---
PROCEDURE: CT KIDNEY URETER BLADDER (KUB) INDICATIONS: left flank pain TECHNIQUE: Noncontrast 5 mm thick sections acquired from the diaphragms to the symphysis. 5 mm thick coronal and sagittal reformats were then performed. For radiation dose reduction, the following was used: automated exposure control, adjustment of mA and/or kV according to patient size. COMPARISON: None. FINDINGS: Image quality: Excellent. Lung bases: Lung bases are clear. Heart size is normal. Urinary system: Both kidneys are normal in size. A nonobstructing 4 mm in diameter calculus is present within the left lower pole. No right hydronephrosis. There is mild left pelviectasis. A 6 mm diameter calculus is present within the proximal left ureter (series 2, image 39). The downstream left ureter demonstrates normal caliber. The bladder is decompressed. No bladder calculi. Other solid organs: Liver is normal in size. Gallbladder is surgically absent. Pancreas is normal in contours. Spleen is normal in size. No adrenal nodules. Peritoneum and bowel: Unenhanced bowel loops demonstrate normal wall thickness and caliber. The appendix is not visualized; however there is no discrete right lower quadrant fluid or fat stranding to suggest acute appendicitis. There are extensive sigmoid diverticula. No evidence for diverticulitis. No free fluid or air. Nodes and vessels: No retroperitoneal or mesenteric adenopathy by size criteria. Aorta and inferior vena cava are normal in caliber. There are scattered atheromatous calcifications throughout the aorta and iliac arteries bilaterally. Abdominal wall: No ventral hernias. Pelvis: No free pelvic fluid. No inguinal hernias or adenopathy. Bones: No suspicious bony lesions. No vertebral body compression fractures. Severe degenerative changes are present throughout the thoracolumbar spine. IMPRESSION: 1. Left ureterolithiasis with mild pelviectasis. These findings suggest probable intermittent ureteral obstruction of the proximal left ureter. No fat stranding to suggest calyceal rupture. 2. Nonobstructing left nephrolithiasis. 2. Diverticulosis. No acute diverticulitis. These findings were discussed with Dr. Elliott at 9:57 PM on 04/11/19. Dictated by: Asha Brownlee M.D. on 04/11/2019 at 21:52 Approved by: Asha Brownlee M.D. on 04/11/2019 at 21:58
[2019-04-11 22:59] VITALS: BP 158/53; PULSE 73
[2019-04-11] MEDS: ONDANSETRON 4 MG ODT PREPACK 1 BOTTLE MISC (22:59)
[2019-04-11] MEDS: HYDROCODONE/ACET 5/325 PREPACK 1 BOTTLE MISC (22:59)
== END 2019-04-11 23:00 | disposition home or self-care (01) ==
PROVIDERS: Emergency Provider Emergency Medicine; Family Provider Family Medicine; PCP Family Medicine
DX: N20.0 Calculus of kidney (principal); Z87.442 Personal history of urinary calculi
CPT/HCPCS: 36415; 74176; 80053; 81003; 83690; 85025; 85610; 85730; 93005; 96374; 96375; 99282; 99285; J1885; J2405

== ENCOUNTER 2019-04-15 17:20 | Emergency (ER) | payer MEDICARE, OTHER, SELFPAY ==
[2019-04-15 17:28] VITALS: BP 184/66; PULSE 86; RESP 18; TEMP 36.6; O2SAT 97; BMI 19.3
[2019-04-15 17:51] LABS: Add Manual Diff / Slide Review NO; Basophils Absolute Auto 100 /uL (0-100); Basophils Percent Auto 0.8 % (0-2); Eosinophils Absolute Auto 100 /uL (0-450); Eosinophils Percent Auto 0.8 % (2-4); Hematocrit 33.7 % (36-46); Hemoglobin 11.5 g/dL (12.0-16.0); Lymphocytes Absolute Auto 1500 /uL (1100-4500); Lymphocytes Percent Auto 17.4 % (25-40); Mean Corpuscular HGB Conc 34.1 % (30-36); Mean Corpuscular Hemoglobin 31.8 PG (26-34); Mean Corpuscular Volume 93.3 fL (80-100); Monocytes Absolute Auto 600 /uL (0-900); Monocytes Percent Auto 7.1 % (3-14); Neutrophils Absolute Auto 6300 /uL (1500-7000); Neutrophils Percent Auto 73.9 % (50-75); Platelet Count 134 X10^3/uL (150-400); Red Blood Cell Count 3.61 X10^6/uL (4.0-5.2); Red Cell Distribution Width 12.7 % (11.6-14.8); White Blood Cell Count 8.5 X10^3/uL (4.5-11.0)
[2019-04-15 18:02] LABS: Alanine Aminotransferase 7 IU/L (9-52); Albumin Globulin Ratio 1.1 (1.0-2.8); Alkaline Phosphatase 70 U/L (38-126); Aspartate Aminotransferase 32 IU/L (14-36); BUN Creatinine Ratio 15.6 (6-22); Bilirubin Total 0.4 mg/dL (0.2-1.3); Blood Urea Nitrogen 28 mg/dL (7-17); Calcium 8.8 mg/dL (8.4-10.2); Carbon Dioxide 23 mmol/L (22-32); Chloride 103 mmol/L (98-107); Estimated Glomerular Filt Rate 26.9 mL/min (>60); Globulin 3.5 g/dL (1.7-4.1); Glucose 115 mg/dL (80-110); HEMOLYSIS 16 (0-50); Lipase 41 U/L (23-300); Potassium 3.8 mmol/L (3.4-5.1); Sodium 139 mmol/L (137-145); Total Protein 7.5 g/dL (6.3-8.2)
[2019-04-15] MEDS: ONDANSETRON 4 MG/2 ML INJ IV (18:12)
[2019-04-15] MEDS: MORPHINE 4 MG/ML INJ IV (18:12)
[2019-04-15] MEDS: SODIUM CHLORIDE 0.9% 500 ML 1000 ML IV ×2 (18:13→19:11)
[2019-04-15 18:15] VITALS: BP 169/68; PULSE 78; RESP 18; O2SAT 96
[2019-04-15 18:18] LABS: Bacteria Urine Few (2-10); Culture Indicated Urine Specimen Cultured; RBC Urine 10-30/HPF (0-5/HPF); WBC Urine 5-10/HPF (0-5/HPF)
[2019-04-15] MEDS: HYDROCODONE/ACET 5/325 TABLET 1 TAB PO (19:16)
[2019-04-15 20:11] VITALS: BP 148/52; PULSE 62; RESP 16; O2SAT 98
[2019-04-15 20:26] LABS: BUN Creatinine Ratio 14.4 (6-22); Blood Urea Nitrogen 26 mg/dL (7-17); Calcium 8.2 mg/dL (8.4-10.2); Carbon Dioxide 22 mmol/L (22-32); Chloride 107 mmol/L (98-107); Estimated Glomerular Filt Rate 26.9 mL/min (>60); Glucose 108 mg/dL (80-110); HEMOLYSIS 39 (0-50); Sodium 140 mmol/L (137-145)
--- NOTE | 2019-04-15 20:53 | ED_ITS ---
HPI - Abdominal Pain <JUAN Mendez - Last Filed: 04/15/19 21:24> General Chief Complaint: Abdominal Pain Stated Complaint: Kidney stone Time Seen by Provider: 04/15/19 17:51 Source: patient and family Mode of arrival: ambulatory Limitations: no limitations History of Present Illness HPI narrative: This is a 83-year-old female, nonsmoker, who presents to ED with her spouse with chief complain of left flank and abdominal pain. Patient was diagnosed with left kidney stone 4 days ago and discharged to home with prepack Mabank and a prescription for Mabank. Patient reports that the pain had improved after discharged to home and she has been taking [id number] Tylenol only. Today severe pain as 05/23 recurred and she is back to ED. Patient reports she had completed taking prepack Mabank but has not taken additional Mabank. Patient denies hematuria, fever, chills, nausea, vomiting. Patient has an appointment with [facility] urologist on Monday. Patient states is able to urinate without difficulty. Related Data Home Medications Medication Instructions Recorded Confirmed cholecalciferol (vitamin D3) 1,000 unit PO DAILY #0 05/06/11 11/28/18 [Vitamin D3] lisinopril 20 mg PO BID #0 05/06/11 11/28/18 raloxifene [Evista] 60 mg PO QPM #0 05/06/11 11/28/18 amlodipine [Norvasc] 5 mg PO QPM #0 08/09/16 11/28/18 atorvastatin [Lipitor] 10 mg PO BEDTIME #0 08/09/16 11/28/18 aspirin 325 mg PO QPM 11/28/18 11/28/18 ferrous sulfate 324 mg PO DAILY 11/28/18 11/28/18 folic acid 1 mg PO DAILY 11/28/18 11/28/18 omeprazole 20 mg PO BID 11/28/18 11/28/18 sulfasalazine 500 mg PO TID 11/28/18 11/28/18 Previous Rx's Medication Instructions Recorded hydrocodone-acetaminophen [Mabank] 1 tab PO Q6H PRN #10 tab 04/11/19 ondansetron 4 mg PO Q8H PRN #10 tab 04/11/19 tamsulosin [Flomax] 0.4 mg PO DAILY #10 cap 04/11/19 Allergies Allergy/AdvReac Type Severity Reaction Status Date / Time ibuprofen [From MOTRIN] AdvReac Mild UPSET Verified 04/15/19 17:30 STOMACH Review of Systems <JUAN Mendez - Last Filed: 04/15/19 21:24> Review of Systems Narrative: General: Denies fever, chills, fatigue, malaise, sweats. HEENT: Denies sinus pain, ear pain, sore throat, difficulty swallowing, di zziness. Respiratory: Denies dyspnea, cough, wheezing, hemoptysis, sputum. Cardiovascular: Denies chest pain, palpitations, orthopnea, edema. Gastrointestinal: Denies nausea, vomiting, abdominal pain, diarrhea, constipation, melena. : See HPI. Denies dysuria, frequency, incontinence, hematuria, urinary retention. Musculoskeletal: Denies weakness, joint pain or bony pain. Skin: Denies rash, skin lesions, or other. Neurologic: Denies weakness, headache, numbness, change in speech, confusion, seizures, incoordination. Psychiatric: No concerning psychosocial issues. 12-point review of systems is negative except for those stated above. PFSH <JUAN Mendez - Last Filed: 04/15/19 21:24> Medical History (Updated 04/15/19 @ 21:10 by JUAN Mendez) Hypertension (Acute) Intracranial aneurysm (Acute) Kidney stones (Acute) Surgical History History of lithotripsy (Acute) History of lumpectomy of right breast (Acute) Social History Smoking Status: Never smoker Social History Smoking Status: Never smoker Exam <JUAN Mendez - Last Filed: 04/15/19 21:24> Narrative Exam Narrative: General appearance: well developed, well nourished, in no acute distress. Head: normocephalic, atraumatic, no scalp lesions, non-tender. Eye: pupil equal, round. EOMI. Nose: nares patent. Oral: mucosa moist. Neck/Thyroid: neck supple, full range of motion, no visible masses. Skin: no suspicious rashes, lesions over visible areas. Warm and dry. Heart: no clubbing, no cyanosis, no edema. Lungs: Breathing even and unlabored. No stridor. No accessory muscles used. Chest: normal shape and expansion. Abdomen: non-obese, non-distended, soft to palpate. Neurologic: alert and oriented. Cognitive exam, BUSINESS CONTINUITY COORDINATOR and PNS grossly intact on informal exam. Psych: good eye contact, normal affect. Initial Vital Signs Initial Vital Signs: Vital Signs Temperature 97.9 F 04/15/19 17:28 Pulse Rate 86 04/15/19 17:28 Respiratory Rate 18 04/15/19 17:28 Blood Pressure 184/66 H 04/15/19 17:28 Pulse Oximetry 97 04/15/19 17:28 <Kuldeep Mancini DO - Last Filed: 04/16/19 00:55> Initial Vital Signs Initial Vital Signs: Vital Signs Temperature 97.9 F 04/15/19 17:28 Pulse Rate 86 04/15/19 17:28 Respiratory Rate 18 04/15/19 17:28 Blood Pressure 184/66 H 04/15/19 17:28 Pulse Oximetry 97 04/15/19 17:28 Course <JUAN Mendez - Last Filed: 04/15/19 21:24> Orders Ordered: ED Orders 04/15/19 17:35 Complete Blood Count AUTO DIFF Stat Comprehensive Metabolic Panel Stat Lipase Stat 04/15/19 17:45 Urine Culture Stat Urine Microscopic Stat 04/15/19 20:00 BMP [Basic Metabolic Panel] Stat Discontinued Medications Hydrocodone Bitart/Acetaminophen ([place]ank 5/325) 1 tab PO NOW ONE Stop: 04/15/19 18:58 Last Admin: 04/15/19 19:16 Dose: 1 tab Documented by: DHARA Sodium Chloride (Normal Saline 0.9%) 500 mls @ 1,000 mls/hr IV BOLUS ONE Stop: 04/15/19 18:28 Last Infusion: 04/15/19 19:11 Dose: 0 mls/hr Documented by: Admin: 04/15/19 18:13 Dose: 1,000 mls/hr Documented by: DHARA Sodium Chloride (Normal Saline 0.9%) 500 mls @ 1,000 mls/hr IV BOLUS ONE Stop: 04/15/19 19:30 Last Infusion: 04/15/19 19:43 Dose: 0 mls/hr Documented by: Admin: 04/15/19 19:11 Dose: 1,000 mls/hr Documented by: DHARA Morphine Sulfate (Morphine) 4 mg IV NOW ONE Stop: 04/15/19 18:00 Last Admin: 04/15/19 18:12 Dose: 4 mg Documented by: DHARA Ondansetron HCl (Zofran) 4 mg IV NOW ONE Stop: 04/15/19 17:32 Last Admin: 04/15/19 18:13 Dose: Not Given Documented by: DHARA Ondansetron HCl (Zofran) 4 mg IV NOW ONE Stop: 04/15/19 18:00 Last Admin: 04/15/19 18:12 Dose: 4 mg Documented by: DHARA Vital Signs Vital signs: Vital Signs - 8 hr 04/15/19 17:28 04/15/19 18:15 04/15/19 20:11 Temperature 97.9 F Pulse Rate 86 78 62 Respiratory Rate 18 18 16 Blood Pressure 184/66 H Blood Pressure [Left Arm] 169/68 H 148/52 H Pulse Oximetry 97 96 98 04/15/19 21:12 Temperature Pulse Rate 66 Respiratory Rate 16 Blood Pressure Blood Pressure [Left Arm] 157/55 H Pulse Oximetry 99 <Kuldeep Mancini, - Last Filed: 04/16/19 00:55> Orders Ordered: ED Orders 04/15/19 17:35 Complete Blood Count AUTO DIFF Stat Comprehensive Metabolic Panel Stat Lipase Stat 04/15/19 17:45 Urine Culture Stat Urine Microscopic Stat 04/15/19 20:00 BMP [Basic Metabolic Panel] Stat Discontinued Medications Hydrocodone Bitart/Acetaminophen ([place] 5/325) 1 tab PO NOW ONE Stop: 04/15/19 18:58 Last Admin: 04/15/19 19:16 Dose: 1 tab Documented by: DHARA Sodium Chloride (Normal Saline 0.9%) 500 mls @ 1,000 mls/hr IV BOLUS ONE Stop: 04/15/19 18:28 Last Infusion: 04/15/19 19:11 Dose: 0 mls/hr Documented by: Admin: 04/15/19 18:13 Dose: 1,000 mls/hr Documented by: DHARA Sodium Chloride (Normal Saline 0.9%) 500 mls @ 1,000 mls/hr IV BOLUS ONE Stop: 04/15/19 19:30 Last Infusion: 04/15/19 19:43 Dose: 0 mls/hr Documented by: Admin: 04/15/19 19:11 Dose: 1,000 mls/hr Documented by: DHARA Morphine Sulfate (Morphine) 4 mg IV NOW ONE Stop: 04/15/19 18:00 Last Admin: 04/15/19 18:12 Dose: 4 mg Documented by: DHARA Ondansetron HCl (Zofran) 4 mg IV NOW ONE Stop: 04/15/19 17:32 Last Admin: 04/15/19 18:13 Dose: Not Given Documented by: DHARA Ondansetron HCl (Zofran) 4 mg IV NOW ONE Stop: 04/15/19 18:00 Last Admin: 04/15/19 18:12 Dose: 4 mg Documented by: DHARA Vital Signs Vital signs: Vital Signs - 8 hr 04/15/19 17:28 04/15/19 18:15 04/15/19 20:11 Temperature 97.9 F Pulse Rate 86 78 62 Respiratory Rate 18 18 16 Blood Pressure 184/66 H Blood Pressure [Left Arm] 169/68 H 148/52 H Pulse Oximetry 97 96 98 04/15/19 21:12 Temperature Pulse Rate 66 Respiratory Rate 16 Blood Pressure Blood Pressure [Left Arm] 157/55 H Pulse Oximetry 99 MDM - Abdominal Pain <Brandt JUAN Xiong - Last Filed: 04/15/19 21:24> Differential Diagnosis Differential diagnosis: Likely calculus of kidney and other (pylonephritis, kidney stone obstruction) Medical Records Attestation: I reviewed the patient's medical records. Lab Data Attestation: I reviewed the patient's lab results. Result diagrams: 04/15/19 17:35 04/15/19 20:00 Labs: Lab Results 04/15/19 04/15/19 04/15/19 Range/Units 17:35 17:35 17:45 WBC 8.5 (4.5-11.0) X10^3/uL RBC 3.61 L (4.0-5.2) X10^6/uL Hgb 11.5 L (12.0-16.0) g/dL Hct 33.7 L (36-46) % MCV 93.3 (80-100) fL MCH 31.8 (26-34) PG MCHC 34.1 (30-36) % RDW 12.7 (11.6-14.8) % Plt Count 134 L (150-400) X10^3/uL Neut % (Auto) 73.9 (50-75) % Lymph % (Auto) 17.4 L (25-40) % [place] % (Auto) 7.1 (3-14) % Eos % (Auto) 0.8 L (2-4) % Baso % (Auto) 0.8 (0-2) % Neut # (Auto) 6300 (5007-1295) /uL Lymph # (Auto) 1500 (6204-6215) /uL [place] # (Auto) 600 (0-900) /uL Eos # (Auto) 100 (0-450) /uL Baso # (Auto) 100 (0-100) /uL Sodium 139 (137-145) mmol/L Potassium 3.8 (3.4-5.1) mmol/L Chloride 103 (98-107) mmol/L Carbon Dioxide 23 (22-32) mmol/L BUN 28 H (7-17) mg/dL Creatinine 1.80 H (0.52-1.04) mg/dL Estimated GFR 26.9 L (>60) mL/min BUN/Creatinine Ratio 15.6 (6-22) Glucose 115 H (80-110) mg/dL Calcium 8.8 (8.4-10.2) mg/dL Total Bilirubin 0.4 (0.2-1.3) mg/dL AST 32 (14-36) IU/L ALT 7 L (9-52) IU/L Alkaline Phosphatase 70 (38-126) U/L Total Protein 7.5 (6.3-8.2) g/dL Albumin 4.0 (3.5-5.0) g/dL Globulin 3.5 (1.7-4.1) g/dL Albumin/Globulin Ratio 1.1 (1.0-2.8) Lipase 41 D (23-300) U/L Urine RBC 10-30/hpf H (0-5/HPF) Urine WBC 5-10/hpf H (0-5/HPF) Urine Bacteria Few (2-10) H (None) Ur Culture Indicated? Specimen cultured 04/15/19 Range/Units 20:00 WBC (4.5-11.0) X10^3/uL RBC (4.0-5.2) X10^6/uL Hgb (12.0-16.0) g/dL Hct (36-46) % MCV (80-100) fL MCH (26-34) PG MCHC (30-36) % RDW (11.6-14.8) % Plt Count (150-400) X10^3/uL Neut % (Auto) (50-75) % Lymph % (Auto) (25-40) % [place] % (Auto) (3-14) % Eos % (Auto) (2-4) % Baso % (Auto) (0-2) % Neut # (Auto) (1231-2890) /uL Lymph # (Auto) (2997-3223) /uL [place] # (Auto) (0-900) /uL Eos # (Auto) (0-450) /uL Baso # (Auto) (0-100) /uL Sodium 140 (137-145) mmol/L Potassium 4.0 (3.4-5.1) mmol/L Chloride 107 (98-107) mmol/L Carbon Dioxide 22 (22-32) mmol/L BUN 26 H (7-17) mg/dL Creatinine 1.80 H (0.52-1.04) mg/dL Estimated GFR 26.9 L (>60) mL/min BUN/Creatinine Ratio 14.4 (6-22) Glucose 108 (80-110) mg/dL Calcium 8.2 L (8.4-10.2) mg/dL Total Bilirubin (0.2-1.3) mg/dL AST (14-36) IU/L ALT (9-52) IU/L Alkaline Phosphatase (38-126) U/L Total Protein (6.3-8.2) g/dL Albumin (3.5-5.0) g/dL Globulin (1.7-4.1) g/dL Albumin/Globulin Ratio (1.0-2.8) Lipase (23-300) U/L Urine RBC (0-5/HPF) Urine WBC (0-5/HPF) Urine Bacteria (None) Ur Culture Indicated? Point of care testing: Urine Dip Bedside Urine Glucose Negative Bedside Urine Bilirubin + 1 Bedside Urine Ketone +/- 5 Urine Specific [place] 1.015 Bedside Urine Occult Blood ++ Bedside Urine pH 6.0 Bedside Urine Protein + 30 Bedside Urine Urobilinogen - Negative Bedside Urine Nitrite - Negative Bedside Urine Leukocytes + 70 Esterase MDM Narrative Medical decision making narrative: This patient presents to ED 4 days after diagnosed with left-sided kidney stone with recurring severe pain in left flank and abdomen area. Patient denies constitutional symptoms, nausea or vomiting, hematuria, symptoms for urinary retention. Patient states had completed Mabank 4 pills of prepack that she was sent home during the previous visit but had not started taking the prescription she felt when she discharged to home. She was doing well for a day and half and the pain has recurred and very severe. Repeat urine test was done and showed 2+ occult blood, small amount of protein, negative nitrite and +70 urine leukocytes esterase. Urine is being cultured for 2-10 bacteria. White count including neutrophils were unremarkable. Today's kidney function test was marked decreased GFR from previous visit with moderately elevated creatine and BUN. Patient was hydrated with 1 L of normal saline in anticipation of improving hydration and creatine/GFR. Repeat BMP was obtained and there was no changes in creatinine or GFR after the hydration. Patient reports pain has been improved after medicated with IV and p.o. analgesia. Patient had voided twice in the ED and did not appears to be toxic. Urologist, Dr. Alcala had consulted over the phone and instructed patient should follow up with urologist on Monday as scheduled and follow up with her primary care physician for recheck kidney function. The findings were discussed with patient and spouse at the bedside. Return precautions were discussed and patient agrees with treatment plan. No further questions were expressed at this time. <Kuldeep Mancini, DO - Last Filed: 04/16/19 00:55> Lab Data Labs: Lab Results 04/15/19 04/15/19 04/15/19 Range/Units 17:35 17:35 17:45 WBC 8.5 (4.5-11.0) X10^3/uL RBC 3.61 L (4.0-5.2) X10^6/uL Hgb 11.5 L (12.0-16.0) g/dL Hct 33.7 L (36-46) % MCV 93.3 (80-100) fL MCH 31.8 (26-34) PG MCHC 34.1 (30-36) % RDW 12.7 (11.6-14.8) % Plt Count 134 L (150-400) X10^3/uL Neut % (Auto) 73.9 (50-75) % Lymph % (Auto) 17.4 L (25-40) % [place] % (Auto) 7.1 (3-14) % Eos % (Auto) 0.8 L (2-4) % Baso % (Auto) 0.8 (0-2) % Neut # (Auto) 6300 (9937-8108) /uL Lymph # (Auto) 1500 (6704-5927) /uL [place] # (Auto) 600 (0-900) /uL Eos # (Auto) 100 (0-450) /uL Baso # (Auto) 100 (0-100) /uL Sodium 139 (137-145) mmol/L Potassium 3.8 (3.4-5.1) mmol/L Chloride 103 (98-107) mmol/L Carbon Dioxide 23 (22-32) mmol/L BUN 28 H (7-17) mg/dL Creatinine 1.80 H (0.52-1.04) mg/dL Estimated GFR 26.9 L (>60) mL/min BUN/Creatinine Ratio 15.6 (6-22) Glucose 115 H (80-110) mg/dL Calcium 8.8 (8.4-10.2) mg/dL Total Bilirubin 0.4 (0.2-1.3) mg/dL AST 32 (14-36) IU/L ALT 7 L (9-52) IU/L Alkaline Phosphatase 70 (38-126) U/L Total Protein 7.5 (6.3-8.2) g/dL Albumin 4.0 (3.5-5.0) g/dL Globulin 3.5 (1.7-4.1) g/dL Albumin/Globulin Ratio 1.1 (1.0-2.8) Lipase 41 D (23-300) U/L Urine RBC 10-30/hpf H (0-5/HPF) Urine WBC 5-10/hpf H (0-5/HPF) Urine Bacteria Few (2-10) H (None) Ur Culture Indicated? Specimen cultured 04/15/19 Range/Units 20:00 WBC (4.5-11.0) X10^3/uL RBC (4.0-5.2) X10^6/uL Hgb (12.0-16.0) g/dL Hct (36-46) % MCV (80-100) fL MCH (26-34) PG MCHC (30-36) % RDW (11.6-14.8) % Plt Count (150-400) X10^3/uL Neut % (Auto) (50-75) % Lymph % (Auto) (25-40) % [place] % (Auto) (3-14) % Eos % (Auto) (2-4) % Baso % (Auto) (0-2) % Neut # (Auto) (1596-3441) /uL Lymph # (Auto) (1047-1640) /uL [place] # (Auto) (0-900) /uL Eos # (Auto) (0-450) /uL Baso # (Auto) (0-100) /uL Sodium 140 (137-145) mmol/L Potassium 4.0 (3.4-5.1) mmol/L Chloride 107 (98-107) mmol/L Carbon Dioxide 22 (22-32) mmol/L BUN 26 H (7-17) mg/dL Creatinine 1.80 H (0.52-1.04) mg/dL Estimated GFR 26.9 L (>60) mL/min BUN/Creatinine Ratio 14.4 (6-22) Glucose 108 (80-110) mg/dL Calcium 8.2 L (8.4-10.2) mg/dL Total Bilirubin (0.2-1.3) mg/dL AST (14-36) IU/L ALT (9-52) IU/L Alkaline Phosphatase (38-126) U/L Total Protein (6.3-8.2) g/dL Albumin (3.5-5.0) g/dL Globulin (1.7-4.1) g/dL Albumin/Globulin Ratio (1.0-2.8) Lipase (23-300) U/L Urine RBC (0-5/HPF) Urine WBC (0-5/HPF) Urine Bacteria (None) Ur Culture Indicated? Point of care testing: Urine Dip Bedside Urine Glucose Negative Bedside Urine Bilirubin + 1 Bedside Urine Ketone +/- 5 Urine Specific [place] 1.015 Bedside Urine Occult Blood ++ Bedside Urine pH 6.0 Bedside Urine Protein + 30 Bedside Urine Urobilinogen - Negative Bedside Urine Nitrite - Negative Bedside Urine Leukocytes + 70 Esterase Discharge Plan Departure Patient Disposition: Home Clinical Impression: Calculus of kidney, Decreased renal function Discharge Date/Time: 04/15/19 21:17 Instructions: DI for Kidney Stones, DI for Acute Kidney Injury Activity Restrictions/Additional Instructions: You have been diagnosed with [left-sided kidney stone pain and decreased kidney function per blood test. Urine urine is being cultured at this time and you will get a phone call if you needed treatment with antibiotic medication]. What to do: *Take your medications as directed. For severe pain please take your M[place]ank and mild to moderate pain you could take [id number] Tylenol. Continue to take Flomax to help with passing kidney stone. Hydrate adequately with water to pass kidney stone. *Follow up with your primary care provider in 2-3 days, call for an appointment. Let them know you were seen in the ED and that we asked you to be seen in follow up with decreased kidney function. Please follow with this urologist on Monday as scheduled. *Return to ED if you have any new, worsening, or concerning symptoms, such as [chest pain, breathing difficulty, unable to void or tolerate fluids, large blood in her urine, not feeling well, high fever or any acute concerns]. Prescriptions: No Action lisinopril 10 MG tablet 20 mg PO BID Qty: 0 RF: 0 raloxifene [Evista] 60 MG tablet 60 mg PO QPM Qty: 0 RF: 0 cholecalciferol (vitamin D3) [Vitamin D3] 1,000 unit Tablet 1,000 unit PO DAILY Qty: 0 RF: 0 amlodipine [Norvasc] 5 MG tablet 5 mg PO QPM Qty: 0 RF: 0 atorvastatin [Lipitor] 10 MG tablet 10 mg PO BEDTIME Qty: 0 RF: 0 sulfasalazine 500 mg tablet 500 mg PO TID RF: 0 aspirin 325 mg tablet,delayed release (DR/EC) 325 mg PO QPM RF: 0 omeprazole 20 mg capsule,delayed release(DR/EC) 20 mg PO BID RF: 0 folic acid 1 mg tablet 1 mg PO DAILY RF: 0 ferrous sulfate 324 mg (65 mg iron) tablet,delayed release (DR/EC) 324 mg PO DAILY RF: 0 tamsulosin [Flomax] 0.4 mg capsule 0.4 mg PO DAILY Qty: 10 RF: 0 hydrocodone-acetaminophen [Mabank] 5-325 mg tablet 1 tab PO Q6H PRN (Reason: pain) Qty: 10 RF: 0 ondansetron 4 mg tablet,disintegrating 4 mg PO Q8H PRN (Reason: nausea and vomiting) Qty: 10 RF: 0 Referrals: Vaibhav Arevalo MD [Primary Care Provider] - <Kuldeep Mancini DO - Last Filed: 04/16/19 00:55> Sign Out Provider Sign Out Attestation: I was immediately available in the department for consultation. Documentation has been reviewed. I agree with assessment and plan.
[2019-04-15 21:12] VITALS: BP 157/55; PULSE 66; RESP 16; O2SAT 99
== END 2019-04-15 21:17 | disposition home or self-care (01) ==
PROVIDERS: Emergency Medicine; Emergency Provider Nurse Practitioner Family; Family Provider Family Medicine; PCP Family Medicine
DX: N20.0 Calculus of kidney (principal); N28.9 Disorder of kidney and ureter, unspecified
CPT/HCPCS: 36415; 36591; 80048; 80053; 81003; 81015; 83690; 85025; 87086; 96361; 96374; 96375; 99284; J2270; J2405

== ENCOUNTER 2020-04-23 14:18 | Emergency (ER) | payer MEDICARE, OTHER, SELFPAY ==
[2020-04-23 14:27] VITALS: BP 207/88; PULSE 95; RESP 12; TEMP 36.7; O2SAT 94; BMI 19.3
[2020-04-23 14:56] VITALS: PULSE 64; RESP 22; O2SAT 97
[2020-04-23 15:00] VITALS: BP 186/82; PULSE 67; RESP 24; O2SAT 98
--- NOTE | 2020-04-23 15:06 | DI.CT.S_ITS ---
PROCEDURE: CT ABDOMEN PELVIS W CON INDICATIONS: left sided pain TECHNIQUE: After the administration of intravenous contrast, 5 mm thick sections acquired from the diaphragm to the symphysis. 5 mm coronal and sagittal reformats were acquired. For radiation dose reduction, the following was used: automated exposure control, adjustment of mA and/or kV according to patient size. COMPARISON: [facility], CT, ABDOMEN/PELVIS WITH CONTRAST, 01/02/2015, 12:05. [facility], CT, CT KIDNEY URETER BLADDER (KUB), 04/11/2019, 21:44. FINDINGS: Image quality: Excellent. ABDOMEN: Lung bases: Lung bases are clear. Heart size is normal. Coronary artery calcifications are present. Hepatic steatosis. Gallbladder surgically absent . Biliary system is non dilated. Pancreas enhances normally. Spleen is normal in size and enhancement. No adrenal nodules. Subcentimeter renal foci, statistically cysts, although technically too small to characterize accurately and therefore nonspecific. 2-3 mm nonobstructive left nephrolithiasis. Bilateral renal cortical atrophy and scarring. Peritoneum and bowel: Bowel loops demonstrate normal wall thickness and caliber. No free fluid or air. Appendix is not clearly identified however no suspicious pericecal inflammatory changes are seen. Colonic diverticulosis is seen without evidence of acute complication. Nodes and vessels: No retroperitoneal or mesenteric adenopathy by size criteria. Aorta and inferior vena cava are normal in size. Miscellaneous: No ventral hernias. PELVIS: Genitourinary: Bladder wall thickness is normal. Miscellaneous: No inguinal hernias or adenopathy. Bones: No vertebral body compression fracture. Spondylytic changes and facet arthropathy. Diffuse osteopenia IMPRESSION: Overall, no specific abnormality to explain left-sided pain. Incidentally noted colonic diverticulosis. Additional chronic and incidental findings as above. Dictated by: Mitch Medina M.D. on 04/23/2020 at 15:51 Approved by: Mitch Medina M.D. on 04/23/2020 at 16:02
--- NOTE | 2020-04-23 15:09 | ED.ABDPAIN ---
HPI - Abdominal Pain General Chief Complaint: Abdominal Pain Stated Complaint: diarrhea/ stomach pain/ back Time Seen by Provider: 04/23/20 14:27 Source: patient Mode of arrival: Ambulatory Limitations: no limitations History of Present Illness HPI narrative: Patient is an 84-year-old with history of hypertension presenting with diarrhea and left-sided abdominal pain. She says she woke up this morning and has had 6 episodes of black diarrhea, she is on iron. She denies any dizziness lightheadedness no nausea vomiting or fevers. She is noted to be quite hypertensive in the ED she denies any chest pain or shortness of breath. states that she has been to the ER previously for hypertension issues. She complains of pain in her left flank area that seems to radiate around to the front and has a history of kidney stones. MD complaint: abdominal pain Onset (ago): hour(s) Pain Consistency: constant Location: LLQ and L flank Quality: cramping Radiation: LLQ Related Data Home Medications Medication Instructions Recorded Confirmed cholecalciferol (vitamin D3) 1,000 unit PO DAILY #0 05/06/11 11/28/18 [Vitamin D3] lisinopril 20 mg PO BID #0 05/06/11 11/28/18 raloxifene [Evista] 60 mg PO QPM #0 05/06/11 11/28/18 amlodipine [Norvasc] 5 mg PO QPM #0 08/09/16 11/28/18 atorvastatin [Lipitor] 10 mg PO BEDTIME #0 08/09/16 11/28/18 aspirin 325 mg PO QPM 11/28/18 11/28/18 ferrous sulfate 324 mg PO DAILY 11/28/18 11/28/18 folic acid 1 mg PO DAILY 11/28/18 11/28/18 omeprazole 20 mg PO BID 11/28/18 11/28/18 sulfasalazine 500 mg PO TID 11/28/18 11/28/18 Previous Rx's Medication Instructions Recorded hydrocodone-acetaminophen [[place]] 1 tab PO Q6H PRN #10 tab 04/11/19 ondansetron 4 mg PO Q8H PRN #10 tab 04/11/19 tamsulosin [Flomax] 0.4 mg PO DAILY #10 cap 04/11/19 Allergies Allergy/AdvReac Type Severity Reaction Status Date / Time ibuprofen [From MOTRIN] AdvReac Mild UPSET Verified 04/23/20 14:33 STOMACH Review of Systems Review of Systems Narrative: GENERAL: Denies chills, fatigue, malaise, fever, sweats, travel HEENT: Denies sinus pain, ear pain, sore throat, difficulty swallowing, neck pain RESPIRATORY: Denies dyspnea, cough, wheezing, hemoptysis, sputum. CARDIOVASCULAR: Denies chest pain, palpitations, orthopnea, edema GASTROINTESTINAL: See HPI : Denies dysuria, frequency, incontinence, hematuria, urinary retention, flank pain. MUSCULOSKELETAL: Denies weakness, joint pain, or bony pain SKIN: No rash, no erythema, no pruritus NEUROLOGIC: Denies weakness, dizziness, headache, numbness, change in speech, confusion PSYCHIATRIC: No concerning psychosocial issues. 12 point review of systems is negative except for those stated above and HPI Patient History Medical History Hypertension (Acute) Intracranial aneurysm (Acute) Kidney stones (Acute) Surgical History History of lithotripsy (Acute) History of lumpectomy of right breast (Acute) Social History Smoking Status: Never smoker Smoking Status: Never smoker alcohol intake frequency: holidays/special occasions only Substance Use Type: does not use Exam Initial Vital Signs Initial Vital Signs: Vital Signs Temperature 98.1 F 04/23/20 14:27 Pulse Rate 95 H 04/23/20 14:27 Respiratory Rate 12 04/23/20 14:27 Blood Pressure 207/88 H 04/23/20 14:27 Pulse Oximetry 94 04/23/20 14:27 GENERAL: Alert well-appearing elderly female and in no acute distress. HEENT: Head atraumatic,EOMI, pupils reactive, face symmetric, moist mucous membranes CARDIOVASCULAR: Regular rate and rhythm without murmurs, rubs or gallops. RESPIRATORY: Breath sounds equal bilaterally, no wheezes rales or rhonchi. ABDOMEN: Soft, nontender. Normoactive bowel sounds all 4 quadrants. No guarding or rebound. : Mild left CVA tenderness RECTAL: No stool. No blood EXTREMITIES: Normal range of motion, no clubbing or edema. Neurovascularly intact NEUROLOGICAL: Alert and oriented x4.Normal gait and speech. Cranial nerves II through XII grossly intact. SKIN: Warm, dry, no laceration, no petechiae, no rashes or lesions. Scores ABCD2 Citation: Lancet. 2006Sep 09;369(5570):753-68. Validation and refinement of scores to predict very early stroke risk after transient ischaemic attack. Ros SC1, Gen PM, Adriana MN, Gerald MF, Micah JS, Gloria AL, Delvis S. Course Orders Ordered: ED Orders 04/23/20 14:45 Complete Blood Count AUTO DIFF Stat Comprehensive Metabolic Panel Stat Lipase Stat Troponin & CK Cardiac Panel Stat 04/23/20 15:06 CT abdomen pelvis w con Stat EKG-12 Lead Stat Discontinued Medications Sodium Chloride (Normal Saline 0.9%) 1,000 mls @ 1,000 mls/hr IV CONT BREANNE Last Infusion: 04/23/20 16:54 Dose: 0 mls/hr Documented by: Admin: 04/23/20 15:12 Dose: 1,000 mls/hr Documented by: TAL Vital Signs Vital signs: Vital Signs - 8 hr 04/23/20 14:27 04/23/20 14:56 04/23/20 15:00 Temperature 98.1 F Pulse Rate 95 H 64 67 Respiratory Rate 12 22 24 Blood Pressure 207/88 H 186/82 H Pulse Oximetry 94 97 98 04/23/20 15:30 04/23/20 16:00 04/23/20 16:30 Temperature Pulse Rate 77 78 67 Respiratory Rate 13 12 12 Blood Pressure 190/87 H 185/84 H 174/77 H Pulse Oximetry 97 99 97 MDM - Abdominal Pain Lab Data Attestation: I reviewed the patient's lab results. Result diagrams: 04/23/20 14:45 04/23/20 14:45 Labs: Lab Results 04/23/20 04/23/20 Range/Units 14:45 14:45 WBC 5.1 (4.5-11.0) X10^3/uL RBC 3.73 L (4.0-5.2) X10^6/uL Hgb 11.5 L (12.0-16.0) g/dL Hct 35.5 L (36-46) % MCV 95.1 (80-100) fL MCH 31.0 (26-34) PG MCHC 32.6 (30-36) % RDW 13.3 (11.6-14.8) % Plt Count 134 L (150-400) X10^3/uL Neut % (Auto) 56.5 (50-75) % Lymph % (Auto) 34.4 (25-40) % [place] % (Auto) 6.7 (3-14) % Eos % (Auto) 1.9 L (2-4) % Baso % (Auto) 0.5 (0-2) % Neut # (Auto) 2900 (0791-9516) /uL Lymph # (Auto) 1800 (0682-8461) /uL [place] # (Auto) 300 (0-900) /uL Eos # (Auto) 100 (0-450) /uL Baso # (Auto) 0 (0-100) /uL Sodium 139 (137-145) mmol/L Potassium 4.2 (3.4-5.1) mmol/L Chloride 107 (98-107) mmol/L Carbon Dioxide 27 (22-32) mmol/L BUN 16 (7-17) mg/dL Creatinine 0.95 (0.52-1.04) mg/dL Estimated GFR 56.2 L (>60) mL/min BUN/Creatinine Ratio 16.8 (6-22) Glucose 103 (80-110) mg/dL Calcium 9.1 (8.4-10.2) mg/dL Total Bilirubin 0.3 (0.2-1.3) mg/dL AST 28 (14-36) IU/L ALT 9 (<35) IU/L Alkaline Phosphatase 90 (38-126) U/L Total Creatine Kinase 59 (30-135) U/L CK-MB (CK-2) TNP CK-MB (CK-2) Rel Index TNP Troponin I < 0.012 (0.01-0.034) ng/mL Total Protein 7.2 (6.3-8.2) g/dL Albumin 4.1 (3.5-5.0) g/dL Globulin 3.1 (1.7-4.1) g/dL Albumin/Globulin Ratio 1.3 (1.0-2.8) Lipase 67 (23-300) U/L Imaging Data CT scan - abdomen/pelvis: Radiologist's Impression: PROCEDURE: CT ABDOMEN PELVIS W CON INDICATIONS: left sided pain TECHNIQUE: After the administration of intravenous contrast, 5 mm thick sections acquired from the diaphragm to the symphysis. 5 mm coronal and sagittal reformats were acquired. For radiation dose reduction, the following was used: automated exposure control, adjustment of mA and/or kV according to patient size. COMPARISON: [facility], CT, ABDOMEN/PELVIS WITH CONTRAST, 01/02/2015, 12:05. [facility], CT, CT KIDNEY URETER BLADDER (KUB), 04/11/2019, 21:44. FINDINGS: Image quality: Excellent. ABDOMEN: Lung bases: Lung bases are clear. Heart size is normal. Coronary artery calcifications are present. Hepatic steatosis. Gallbladder surgically absent . Biliary system is non dilated. Pancreas enhances normally. Spleen is normal in size and enhancement. No adrenal nodules. Subcentimeter renal foci, statistically cysts, although technically too small to characterize accurately and therefore nonspecific. 2-3 mm nonobstructive left nephrolithiasis. Bilateral renal cortical atrophy and scarring. Peritoneum and bowel: Bowel loops demonstrate normal wall thickness and caliber. No free fluid or air. Appendix is not clearly identified however no suspicious pericecal inflammatory changes are seen. Colonic diverticulosis is seen without evidence of acute complication. Nodes and vessels: No retroperitoneal or mesenteric adenopathy by size criteria. Aorta and inferior vena cava are normal in size. Miscellaneous: No ventral hernias. PELVIS: Genitourinary: Bladder wall thickness is normal. Miscellaneous: No inguinal hernias or adenopathy. Bones: No vertebral body compression fracture. Spondylytic changes and facet arthropathy. Diffuse osteopenia IMPRESSION: Overall, no specific abnormality to explain left-sided pain. Incidentally noted colonic diverticulosis. Additional chronic and incidental findings as above. Dictated by: Mitch Medina M.D. on 04/23/2020 at 15:51 Approved by: Mitch Medina M.D. on 04/23/2020 at 16:02 ECG Data Attestation: I personally reviewed and interpreted this ECG as follows: Prior ECG tracings: available for review Interpretation: Normal sinus rhythm rate 73 p.r. interval 166 QRS [address] changes similar to previous EKG MDM Narrative Medical decision making narrative: From patient is not having any acute bleeding, hemodynamically stable, blood work and CT are reassuring. This is likely of viral syndrome. I discussed with her oral rehydration and advance diet as tolerated Discharge Plan Departure Patient Disposition: Home Clinical Impression: Gastroenteritis Discharge Date/Time: 04/23/20 16:56 Instructions: DI for Viral Gastroenteritis -- Adult Activity Restrictions/Additional Instructions: *You have been diagnosed with gastroenteritis *What to do: At this time blood work and CT scan are overall reassuring any likely have a stomach virus causing you to have diarrhea. Increased fluid intake, may eat as tolerated and advance diet *Continue to take medications as directed *Follow up with your primary care provider in 2-3 days *Return to ER if you should have worsening and diarrhea, vomiting abdominal pain or any new, worsening or concerning symptoms Prescriptions: No Action lisinopril 10 MG tablet 20 mg PO BID Qty: 0 RF: 0 raloxifene [Evista] 60 MG tablet 60 mg PO QPM Qty: 0 RF: 0 cholecalciferol (vitamin D3) [Vitamin D3] 1,000 unit Tablet 1,000 unit PO DAILY Qty: 0 RF: 0 amlodipine [Norvasc] 5 MG tablet 5 mg PO QPM Qty: 0 RF: 0 atorvastatin [Lipitor] 10 MG tablet 10 mg PO BEDTIME Qty: 0 RF: 0 sulfasalazine 500 mg tablet 500 mg PO TID RF: 0 aspirin 325 mg tablet,delayed release (DR/EC) 325 mg PO QPM RF: 0 omeprazole 20 mg capsule,delayed release(DR/EC) 20 mg PO BID RF: 0 folic acid 1 mg tablet 1 mg PO DAILY RF: 0 ferrous sulfate 324 mg (65 mg iron) tablet,delayed release (DR/EC) 324 mg PO DAILY RF: 0 tamsulosin [Flomax] 0.4 mg capsule 0.4 mg PO DAILY Qty: 10 RF: 0 hydrocodone-acetaminophen [[place]] 5-325 mg tablet 1 tab PO Q6H PRN (Reason: pain) Qty: 10 RF: 0 ondansetron 4 mg tablet,disintegrating 4 mg PO Q8H PRN (Reason: nausea and vomiting) Qty: 10 RF: 0 Referrals: Vaibhav Arevalo MD [Primary Care Provider] -
[2020-04-23] MEDS: SODIUM CHLORIDE 0.9% 1,000 ML 1000 ML IV (15:12)
[2020-04-23 15:16] LABS: Add Manual Diff / Slide Review NO; Basophils Absolute Auto 0 /uL (0-100); Basophils Percent Auto 0.5 % (0-2); Eosinophils Absolute Auto 100 /uL (0-450); Eosinophils Percent Auto 1.9 % (2-4); Hematocrit 35.5 % (36-46); Hemoglobin 11.5 g/dL (12.0-16.0); Lymphocytes Absolute Auto 1800 /uL (1100-4500); Lymphocytes Percent Auto 34.4 % (25-40); Mean Corpuscular HGB Conc 32.6 % (30-36); Mean Corpuscular Volume 95.1 fL (80-100); Monocytes Absolute Auto 300 /uL (0-900); Monocytes Percent Auto 6.7 % (3-14); Neutrophils Absolute Auto 2900 /uL (1500-7000); Neutrophils Percent Auto 56.5 % (50-75); Platelet Count 134 X10^3/uL (150-400); Red Blood Cell Count 3.73 X10^6/uL (4.0-5.2); Red Cell Distribution Width 13.3 % (11.6-14.8); White Blood Cell Count 5.1 X10^3/uL (4.5-11.0)
[2020-04-23 15:23] LABS: Alanine Aminotransferase 9 IU/L (<35); Albumin 4.1 g/dL (3.5-5.0); Albumin Globulin Ratio 1.3 (1.0-2.8); Alkaline Phosphatase 90 U/L (38-126); Aspartate Aminotransferase 28 IU/L (14-36); BUN Creatinine Ratio 16.8 (6-22); Bilirubin Total 0.3 mg/dL (0.2-1.3); Blood Urea Nitrogen 16 mg/dL (7-17); Calcium 9.1 mg/dL (8.4-10.2); Carbon Dioxide 27 mmol/L (22-32); Chloride 107 mmol/L (98-107); Creatine Kinase 59 U/L (30-135); Estimated Glomerular Filt Rate 56.2 mL/min (>60); Globulin 3.1 g/dL (1.7-4.1); Glucose 103 mg/dL (80-110); HEMOLYSIS < 15 (0-50); Lipase 67 U/L (23-300); Potassium 4.2 mmol/L (3.4-5.1); Sodium 139 mmol/L (137-145); Total Protein 7.2 g/dL (6.3-8.2)
[2020-04-23 15:30] VITALS: BP 190/87; PULSE 77; RESP 13; O2SAT 97
[2020-04-23 15:35] LABS: Troponin I < 0.012 ng/mL (0.01-0.034)
[2020-04-23 16:00] VITALS: BP 185/84; PULSE 78; RESP 12; O2SAT 99
[2020-04-23 16:30] VITALS: BP 174/77; PULSE 67; RESP 12; O2SAT 97
== END 2020-04-23 16:56 | disposition home or self-care (01) ==
PROVIDERS: Emergency Provider Emergency Medicine; Family Provider Family Medicine; PCP Family Medicine
DX: K52.9 Noninfective gastroenteritis and colitis, unspecified (principal); I10 Essential (primary) hypertension; Z87.442 Personal history of urinary calculi
CPT/HCPCS: 36415; 74177; 80053; 82550; 83690; 84484; 85025; 93005; 96360; 96361; 99284; Q9967

== ENCOUNTER → 2021-04-14 08:24 | Outpatient (CLI) | payer MEDICARE, OTHER, SELFPAY ==
--- NOTE | 2021-04-14 | DI.RAD.S_ITS ---
PROCEDURE: XR HAND LT MIN 3V INDICATIONS: Pain in left hand TECHNIQUE: 3 views of the hand(s) acquired. COMPARISON: None. FINDINGS: Bones: No fractures or dislocations. Carpal bones are normally aligned. No suspicious bony lesions. Moderate joint space narrowing and periarticular osteophyte formation at the scaphoid trapezial and 1st carpometacarpal joints. Mild periarticular osteophyte formation at the interphalangeal joints of the digits. Soft tissues: No suspicious soft tissue calcifications. IMPRESSION: Osteoarthritis. No acute fracture. No osseous lesion. If symptoms and/or clinical suspicion for pathology persist, further assessment with repeat, or advanced imaging (e.g., CT, MRI, or bone scan) may be helpful for further assessment. Dictated by: Rob Zelaya M.D. on 04/14/2021 at 11:34 Approved by: Rob Zelaya M.D. on 04/14/2021 at 11:35
== END ==
PROVIDERS: Family Provider Family Medicine; PCP Family Medicine; Referring Provider Family Medicine; Visit Provider Family Medicine
DX: M79.642 Pain in left hand (principal); M19.042 Primary osteoarthritis, left hand
CPT/HCPCS: 73130

== ENCOUNTER 2021-05-06 17:42 | Observation (INO) | payer MEDICARE, OTHER, SELFPAY ==
[2021-05-06] VITALS (13 sets, daily range): BP systolic 152–214; BP diastolic 70–88; PULSE 63–100; RESP 11–17; TEMP 36.3–36.6; O2SAT 91–100; BMI 18.8
--- NOTE | 2021-05-06 18:05 | ED.GIBLEED ---
HPI - GI Bleed General Chief complaint: GI Bleed Stated complaint: bloody stool Time Seen by Provider: 05/06/21 18:05 Source: patient and family Mode of arrival: Ambulatory Limitations: no limitations History of Present Illness HPI Narrative: 85-year-old female nonsmoker with history of hypertension presents with her in the chief complaint of a large painless bloody bowel movement earlier today and occasional abdominal pain. She states years ago she had an ulcer. She feels fatigued but is not necessarily dizzy or lightheaded. She denies any chest pain or shortness of breath. She has had no nausea or vomiting. She does not have extensive alcohol history. She does state that she had an ulcer years ago. She has been taking iron supplements as well. She has a occasional black and tarry stool Related Data Home Medications Medication Instructions Recorded Confirmed cholecalciferol (vitamin D3) 25 1,000 unit PO DAILY #0 05/06/11 05/06/21 mcg (1,000 unit) tablet (Vitamin D3) lisinopril 10 mg tablet 20 mg PO BID #0 05/06/11 05/06/21 raloxifene 60 mg tablet (Evista) 60 mg PO QPM #0 05/06/11 05/06/21 aspirin 325 mg tablet,delayed 325 mg PO QPM 11/28/18 05/06/21 release ferrous sulfate 324 mg (65 mg 324 mg PO DAILY 11/28/18 05/06/21 iron) tablet,delayed release folic acid 1 mg tablet 1 mg PO DAILY 11/28/18 05/06/21 omeprazole 20 mg capsule,delayed 20 mg PO BID 11/28/18 05/06/21 release sulfasalazine 500 mg tablet 500 mg PO TID 11/28/18 05/06/21 amlodipine 5 mg tablet mg 05/06/21 guanfacine 1 mg tablet mg 05/06/21 losartan 50 mg tablet 50 mg PO BID 05/06/21 05/06/21 nitroglycerin 0.4 mg sublingual 0.4 mg SUBLINGUAL Q5MIN MDD 3 05/06/21 05/06/21 tablet Previous Rx's Medication Instructions Recorded ondansetron 4 mg disintegrating 4 mg PO Q8H PRN #10 tab 04/11/19 tablet Allergies Allergy/AdvReac Type Severity Reaction Status Date / Time ibuprofen [From MOTRIN] AdvReac Mild UPSET Verified 04/23/20 14:33 STOMACH Review of Systems Review of Systems Narrative: GENERAL: Denies chills, fatigue, malaise, fever, sweats. HEENT: Denies sinus pain, ear pain, sore throat, difficulty swallowing, dizziness. RESPIRATORY: Denies dyspnea, cough, wheezing, hemoptysis, sputum. CARDIOVASCULAR: Denies chest pain, palpitations, orthopnea, edema, GASTROINTESTINAL: See HP : Denies dysuria, frequency, incontinence, hematuria, urinary retention. MUSCULOSKELETAL: denies weakness, joint pain, or bony pain SKIN: Denies rash, skin lesions, or other NEUROLOGIC: Denies weakness, headache, numbness, change in speech, confusion, seizures, incoordination. PSYCHIATRIC: No concerning psychosocial issues. 12 point review of systems is negative except for those stated above Patient History Medical History Chronic anemia Essential hypertension GERD (gastroesophageal reflux disease) Hyperlipidemia Hypertension Intracranial aneurysm Kidney stones Surgical History History of lithotripsy History of lumpectomy of right breast Family History Mother Cancer Father Arthritis Social History household members: spouse Smoking Status: Never smoker Smoking Status: Never smoker alcohol intake frequency: holidays/special occasions only Substance Use Type: does not use Exam Narrative Exam Narrative: GENERAL: 85 year old patient appears stated age. Well-developed patient, in mild distress. HEAD: Atraumatic. Normocephalic. EYES: Pupils equal round and reactive. Extraocular motions intact. No scleral icterus. No injection or drainage. ENT: Nose without bleeding, purulent drainage. Throat without erythema, tonsillar hypertrophy or exudate. Airway patent. NECK: Trachea midline. Non tender CARDIOVASCULAR: Regular rate and rhythm without murmurs, gallops, or rubs. RESPIRATORY: Clear to auscultation. Breath sounds equal bilaterally. No wheezes, rales, or rhonchi. GASTROINTESTINAL: Abdomen soft, non-tender, nondistended. RECTAL: melena present, Heme +. Performed with patient permission and female nursing air drier machine operator at the bedside EXTREMITIES: No edema or joint tenderness. BACK: Nontender without deformity or crepitance. No flank tenderness. NEURO: AOx3. SKIN: No rash or erythema of visible areas Initial Vital Signs Initial Vital Signs: Vital Signs Temperature 98 F 05/06/21 17:45 Pulse Rate 100 H 05/06/21 17:45 Respiratory Rate 14 05/06/21 17:45 Blood Pressure 193/83 H 05/06/21 17:45 Pulse Oximetry 98 05/06/21 17:45 Course Orders Ordered: ED Orders 05/06/21 18:55 Urine Culture Stat Urine Microscopic Stat Acetaminophen (Acetaminophen 325 Mg Tablet) 650 mg PO Q6HR PRN PRN Reason: Fever/Mild Pain (1-3) Lactated Ringer's (Lactated Ringers) 1,000 mls @ 60 mls/hr IV CONT BREANNE Last Admin: 05/06/21 21:57 Dose: 60 mls/hr Documented by: CARMELINA Naloxone HCl (Naloxone 0.4 Mg/Ml Vial) 0.2 mg IV Q2MIN PRN PRN Reason: Opiate Reversal Ondansetron HCl (Ondansetron 4 Mg/2 Ml Inj) 4 mg IV Q8HR PRN PRN Reason: Nausea And Vomiting Pantoprazole Sodium (Pantoprazole 40 Mg Vial) 40 mg IV BID [facility] Discontinued Medications Pantoprazole Sodium (Pantoprazole 40 Mg Vial) 40 mg IV NOW ONE Stop: 05/06/21 20:16 Last Admin: 05/06/21 20:27 Dose: 40 mg Documented by: ELIGIO Consultations Consultation #1: discussed with Dr. Griffin, happy to consult if needed Consultation #2: discussed with hospitalist, happy to accept Vital Signs Vital signs: Vital Signs - 8 hr 05/06/21 20:00 05/06/21 20:30 Pulse Rate 73 67 Respiratory Rate 15 13 Blood Pressure 159/70 H 154/71 H Pulse Oximetry 99 97 MDM - GI Bleed Lab Data Result diagrams: 05/06/21 18:10 05/06/21 18:10 Labs: Lab Results 05/06/21 05/06/21 05/06/21 Range/Units 18:10 18:10 18:10 WBC 5.9 (4.5-11.0) X10^3/uL RBC 3.51 L (4.0-5.2) X10^6/uL Hgb 11.0 L (12.0-16.0) g/dL Hct 33.4 L (36-46) % MCV 95.2 (80-100) fL MCH 31.3 (26-34) PG MCHC 32.9 (30-36) % RDW 14.8 (11.6-14.8) % Plt Count 165 (150-400) X10^3/uL Neut % (Auto) 63.6 (50-75) % Lymph % (Auto) 27.5 (25-40) % [place] % (Auto) 7.1 (3-14) % Eos % (Auto) 1.0 L (2-4) % Baso % (Auto) 0.8 (0-2) % Neut # (Auto) 3700 (9636-8703) /uL Lymph # (Auto) 1600 (2206-5710) /uL [place] # (Auto) 400 (0-900) /uL Eos # (Auto) 100 (0-450) /uL Baso # (Auto) 0 (0-100) /uL PT (10.1-12.7) SECONDS INR (0.9-1.3) APTT 33 (26.4-36.2) SECONDS Sodium 141 (137-145) mmol/L Potassium 3.9 (3.4-5.1) mmol/L Chloride 108 H (98-107) mmol/L Carbon Dioxide 27 (22-32) mmol/L BUN 18 H (7-17) mg/dL Creatinine 0.95 (0.52-1.04) mg/dL Estimated GFR 56.0 L (>60) mL/min BUN/Creatinine Ratio 18.9 (6-22) Glucose 100 (80-110) mg/dL Calcium 9.1 (8.4-10.2) mg/dL Magnesium (1.6-2.3) mg/dL Total Bilirubin 0.2 (0.2-1.3) mg/dL AST 31 (14-36) IU/L ALT 13 (<35) IU/L Alkaline Phosphatase 91 (38-126) U/L Total Protein 7.3 (6.3-8.2) g/dL Albumin 4.2 (3.5-5.0) g/dL Globulin 3.1 (1.7-4.1) g/dL Albumin/Globulin Ratio 1.4 (1.0-2.8) Urine RBC (0-5/HPF) Urine WBC (0-5/HPF) Ur Renal Epithelial Cell (0-1/HPF) Urine Bacteria (None) Ur Culture Indicated? Blood Type Antibody Screen 05/06/21 05/06/21 05/06/21 Range/Units 18:10 18:10 18:10 WBC (4.5-11.0) X10^3/uL RBC (4.0-5.2) X10^6/uL Hgb (12.0-16.0) g/dL Hct (36-46) % MCV (80-100) fL MCH (26-34) PG MCHC (30-36) % RDW (11.6-14.8) % Plt Count (150-400) X10^3/uL Neut % (Auto) (50-75) % Lymph % (Auto) (25-40) % [place] % (Auto) (3-14) % Eos % (Auto) (2-4) % Baso % (Auto) (0-2) % Neut # (Auto) (9995-1234) /uL Lymph # (Auto) (4149-5933) /uL [place] # (Auto) (0-900) /uL Eos # (Auto) (0-450) /uL Baso # (Auto) (0-100) /uL PT 9.9 L (10.1-12.7) SECONDS INR 0.9 (0.9-1.3) APTT (26.4-36.2) SECONDS Sodium (137-145) mmol/L Potassium (3.4-5.1) mmol/L Chloride (98-107) mmol/L Carbon Dioxide (22-32) mmol/L BUN (7-17) mg/dL Creatinine (0.52-1.04) mg/dL Estimated GFR (>60) mL/min BUN/Creatinine Ratio (6-22) Glucose (80-110) mg/dL Calcium (8.4-10.2) mg/dL Magnesium 1.9 (1.6-2.3) mg/dL Total Bilirubin (0.2-1.3) mg/dL AST (14-36) IU/L ALT (<35) IU/L Alkaline Phosphatase (38-126) U/L Total Protein (6.3-8.2) g/dL Albumin (3.5-5.0) g/dL Globulin (1.7-4.1) g/dL Albumin/Globulin Ratio (1.0-2.8) Urine RBC (0-5/HPF) Urine WBC (0-5/HPF) Ur Renal Epithelial Cell (0-1/HPF) Urine Bacteria (None) Ur Culture Indicated? Blood Type O Positive Antibody Screen Negative 05/06/21 Range/Units 18:55 WBC (4.5-11.0) X10^3/uL RBC (4.0-5.2) X10^6/uL Hgb (12.0-16.0) g/dL Hct (36-46) % MCV (80-100) fL MCH (26-34) PG MCHC (30-36) % RDW (11.6-14.8) % Plt Count (150-400) X10^3/uL Neut % (Auto) (50-75) % Lymph % (Auto) (25-40) % [place] % (Auto) (3-14) % Eos % (Auto) (2-4) % Baso % (Auto) (0-2) % Neut # (Auto) (6869-0631) /uL Lymph # (Auto) (7769-7382) /uL [place] # (Auto) (0-900) /uL Eos # (Auto) (0-450) /uL Baso # (Auto) (0-100) /uL PT (10.1-12.7) SECONDS INR (0.9-1.3) APTT (26.4-36.2) SECONDS Sodium (137-145) mmol/L Potassium (3.4-5.1) mmol/L Chloride (98-107) mmol/L Carbon Dioxide (22-32) mmol/L BUN (7-17) mg/dL Creatinine (0.52-1.04) mg/dL Estimated GFR (>60) mL/min BUN/Creatinine Ratio (6-22) Glucose (80-110) mg/dL Calcium (8.4-10.2) mg/dL Magnesium (1.6-2.3) mg/dL Total Bilirubin (0.2-1.3) mg/dL AST (14-36) IU/L ALT (<35) IU/L Alkaline Phosphatase (38-126) U/L Total Protein (6.3-8.2) g/dL Albumin (3.5-5.0) g/dL Globulin (1.7-4.1) g/dL Albumin/Globulin Ratio (1.0-2.8) Urine RBC None seen (0-5/HPF) Urine WBC 5-10/hpf H (0-5/HPF) Ur Renal Epithelial Cell 1-5/hpf H (0-1/HPF) Urine Bacteria None seen (None) Ur Culture Indicated? Specimen cultured Blood Type Antibody Screen Urine Dip Bedside Urine Glucose Negative Bedside Urine Bilirubin - Negative Bedside Urine Ketone - Negative Urine Specific Horace 1.015 Bedside Urine Occult Blood - Negative Bedside Urine pH 6.0 Bedside Urine Protein - Negative Bedside Urine Urobilinogen 0.2 Bedside Urine Nitrite - Negative Bedside Urine Leukocytes + 70 Esterase Discharge Plan Departure Patient Disposition: Admitted as Observation Clinical Impression: Lower gastrointestinal hemorrhage Admit Date/Time: 05/06/21 20:55 Admit Provider: Mee Grimm
[2021-05-06 18:16] LABS: Add Manual Diff / Slide Review NO; Basophils Absolute Auto 0 /uL (0-100); Basophils Percent Auto 0.8 % (0-2); Eosinophils Absolute Auto 100 /uL (0-450); Hematocrit 33.4 % (36-46); Lymphocytes Absolute Auto 1600 /uL (1100-4500); Lymphocytes Percent Auto 27.5 % (25-40); Mean Corpuscular HGB Conc 32.9 % (30-36); Mean Corpuscular Hemoglobin 31.3 PG (26-34); Mean Corpuscular Volume 95.2 fL (80-100); Monocytes Absolute Auto 400 /uL (0-900); Monocytes Percent Auto 7.1 % (3-14); Neutrophils Absolute Auto 3700 /uL (1500-7000); Neutrophils Percent Auto 63.6 % (50-75); Platelet Count 165 X10^3/uL (150-400); Red Blood Cell Count 3.51 X10^6/uL (4.0-5.2); Red Cell Distribution Width 14.8 % (11.6-14.8); White Blood Cell Count 5.9 X10^3/uL (4.5-11.0)
[2021-05-06 18:31] LABS: PTT Partial Thromboplastin Tim 33 SECONDS (26.4-36.2)
[2021-05-06 18:36] LABS: INR 0.9 (0.9-1.3); Prothrombin Time 9.9 SECONDS (10.1-12.7)
[2021-05-06 18:39] LABS: Alanine Aminotransferase 13 IU/L (<35); Albumin 4.2 g/dL (3.5-5.0); Albumin Globulin Ratio 1.4 (1.0-2.8); Alkaline Phosphatase 91 U/L (38-126); Aspartate Aminotransferase 31 IU/L (14-36); BUN Creatinine Ratio 18.9 (6-22); Bilirubin Total 0.2 mg/dL (0.2-1.3); Blood Urea Nitrogen 18 mg/dL (7-17); Calcium 9.1 mg/dL (8.4-10.2); Carbon Dioxide 27 mmol/L (22-32); Chloride 108 mmol/L (98-107); Globulin 3.1 g/dL (1.7-4.1); Glucose 100 mg/dL (80-110); HEMOLYSIS < 15 (0-50); Potassium 3.9 mmol/L (3.4-5.1); Sodium 141 mmol/L (137-145); Total Protein 7.3 g/dL (6.3-8.2)
[2021-05-06 19:28] LABS: RBC Urine None Seen (0-5/HPF); WBC Urine 5-10/HPF (0-5/HPF)
[2021-05-06 19:29] LABS: Bacteria Urine None Seen; Culture Indicated Urine Specimen Cultured; Renal Epithelial Cells Urine 1-5/HPF (0-1/HPF)
[2021-05-06] MEDS: PANTOPRAZOLE 40 MG VIAL IV (20:27)
[2021-05-06 21:28] LABS: Magnesium 1.9 mg/dL (1.6-2.3)
[2021-05-06] MEDS: LACTATED RINGERS 1,000 ML 60 ML IV (21:57)
[2021-05-06 22:47] LABS: COVID19 - ADMIT (NP swab/PCR) Negative (Negative)
[2021-05-07] VITALS (15 sets, daily range): BP systolic 146–181; BP diastolic 65–93; PULSE 54–88; RESP 14–18; TEMP 36.5–36.9; O2SAT 93–99
--- NOTE | 2021-05-07 02:27 | PC.NURSE ---
Guaiac test in orders. Pt had 1 small BM that was black with strands of dark blood seen surrounding the stool. Informed RN that hemoccult not performed due to presence of blood surrounding the stool.
--- NOTE | 2021-05-07 02:28 | P.HP_ITS ---
History of Present Illness History of Present Illness Date Patient Seen: 05/06/21 Time Patient Seen: 21:11 Chief complaint: bloody stool Narrative: Patient is a 85-year-old female Janessa Fuentes nonsmoker with history of hypertension, hyperlipidemia, anemia, and GERD who presented to the ED with her with a chief complaint of a large painless bloody bowel movement earlier today and occasional abdominal pain. She states years ago she had a gastric ulcer. She feels fatigued but is not necessarily dizzy or lightheaded. She denies any chest pain or shortness of breath. She has had no nausea or vomiting. She does not have extensive alcohol history. She has been taking iron supplements as well for her chronic anemia. She has a occasional black and tarry stool. Patient's Hemoccult in ED was positive. Patient denies fever body aches or chills. Patient did not demonstrate any further bloody stools while in the facility. Upon admit to floor patient denies any abdominal pain, nausea, vomiting, or any further bleeding from the rectum or hematuria. Patient's vitals upon admit were stable temp 98?, BP 154/71, HR 67, R 13, O2 saturation 97% on room air. HGB 11, HCT 33.4. Patient's chloride 108, BUN 18, GFR 56 which is patient's baseline. Hemoccult-positive. Urine was cultured. Patient was type and cross blood type O+. Patient admitted for lower GI bleed. Patient History Medical History Chronic anemia Essential hypertension GERD (gastroesophageal reflux disease) Hyperlipidemia Hypertension Intracranial aneurysm Kidney stones Surgical History History of lithotripsy History of lumpectomy of right breast Family & Social History Family History Mother Cancer Father Arthritis Social History: household members spouse Prior Living Arrangements House Safety & Behavioral: Feels Safe in Current Yes Environment Been Physically Hurt or No Threatened By a Person Tobacco & Substance use: Smoking Status Never smoker alcohol intake frequency holiday/special occasion Substance Use Type does not use Meds Home Medications and Allergies Home Medications Medication Instructions Recorded Confirmed Type cholecalciferol (vitamin D3) 25 1,000 unit PO DAILY #0 05/06/11 05/06/21 History mcg (1,000 unit) tablet (Vitamin D3) lisinopril 10 mg tablet 20 mg PO BID #0 05/06/11 05/06/21 History raloxifene 60 mg tablet (Evista) 60 mg PO QPM #0 05/06/11 05/06/21 History aspirin 325 mg tablet,delayed 325 mg PO QPM 11/28/18 05/06/21 History release ferrous sulfate 324 mg (65 mg 324 mg PO DAILY 11/28/18 05/06/21 History iron) tablet,delayed release folic acid 1 mg tablet 1 mg PO DAILY 11/28/18 05/06/21 History omeprazole 20 mg capsule,delayed 20 mg PO BID 11/28/18 05/06/21 History release sulfasalazine 500 mg tablet 500 mg PO TID 11/28/18 05/06/21 History ondansetron 4 mg disintegrating 4 mg PO Q8H PRN #10 tab 04/11/19 Rx tablet amlodipine 5 mg tablet mg 05/06/21 History guanfacine 1 mg tablet mg 05/06/21 History losartan 50 mg tablet 50 mg PO BID 05/06/21 05/06/21 History nitroglycerin 0.4 mg sublingual 0.4 mg SUBLINGUAL Q5MIN MDD 3 05/06/21 05/06/21 History tablet Allergies Allergy/AdvReac Type Severity Reaction Status Date / Time ibuprofen [From MOTRIN] AdvReac Mild UPSET Verified 04/23/20 14:33 STOMACH Review of Systems Review of Systems Narrative: All 12 point systems reviewed with the patient and are negative except otherwise documented. Exam Vital Signs (past 8 hours): - 05/06/21 18:33 05/06/21 18:34 05/06/21 19:00 Temperature Pulse Rate 78 79 74 Respiratory Rate 12 16 Blood Pressure 179/77 H 183/77 H Pulse Oximetry 97 97 97 05/06/21 19:30 05/06/21 20:00 05/06/21 20:30 Temperature Pulse Rate 70 73 67 Respiratory Rate 11 L 15 13 Blood Pressure 159/72 H 159/70 H 154/71 H Pulse Oximetry 97 99 97 05/06/21 21:00 05/06/21 23:45 05/07/21 01:05 Temperature 97.3 F L 97.8 F Pulse Rate 63 64 Respiratory Rate 17 14 Blood Pressure 153/77 H 152/72 H Pulse Oximetry 97 94 Oxygen Delivery Method Room Air Oxygen Flow Rate 0 Narrative Exam Narrative: General: Patient is a well-developed, well-nourished small elderly female in no distress at this time. HEENT: Normocephalic, atraumatic, extraocular muscles intact, oral pharynx is clear and mucous membranes are moist. Neck is supple and symmetric, trachea is midline, no adenopathy, no thyroid enlargement, nontender, no masses palpated. Negative for JVD Chest: Normal AP diameter and contour without kyphoscoliosis, no nasal flaring, retractions, or tachypneic labored Lungs: Auscultation of all lung martinez are clear without adventitious sounds, wheezes, rhonchi, or rales. Cardio: S1 & S2 with regular rate and rhythm without murmur, rubs, or gallops, no carotid bruit, no cardiac pulsations present. Abdomen: Soft nontender, negative for organomegaly, or masses. Bowel sounds are present in all 4 quadrants without guarding or rebound, no CVA tenderness. Musculoskeletal: Muscle strength and tone are equal within normal limits, no deformity, crepitus, effusions, cyanosis, clubbing or edema present. Full range of motion intact radial and pedal pulses are normal. Skin: Warm dry and intact without rashes, ulcerations or petechiae. Neuro: Alert and orientated x3, strength is +5/5 in all extremities, sensation to touch intact, no gross deficits noted of cranial nerves. Psych: Patient has a well-kept appearance, appropriate affect, mental status attitude thought context and judgment are appropriate for age. Objective Labs Result Diagrams: 05/06/21 18:10 05/06/21 18:10 Labs: Laboratory Results - last 24 hr 05/06/21 05/06/21 05/06/21 18:10 18:10 18:10 WBC 5.9 RBC 3.51 L Hgb 11.0 L Hct 33.4 L MCV 95.2 MCH 31.3 MCHC 32.9 RDW 14.8 Plt Count 165 Neut % (Auto) 63.6 Lymph % (Auto) 27.5 [place] % (Auto) 7.1 Eos % (Auto) 1.0 L Baso % (Auto) 0.8 Neut # (Auto) 3700 Lymph # (Auto) 1600 [place] # (Auto) 400 Eos # (Auto) 100 Baso # (Auto) 0 PT INR APTT 33 Sodium 141 Potassium 3.9 Chloride 108 H Carbon Dioxide 27 BUN 18 H Creatinine 0.95 Estimated GFR 56.0 L BUN/Creatinine Ratio 18.9 Glucose 100 Calcium 9.1 Magnesium Total Bilirubin 0.2 AST 31 ALT 13 Alkaline Phosphatase 91 Total Protein 7.3 Albumin 4.2 Globulin 3.1 Albumin/Globulin Ratio 1.4 Urine RBC Urine WBC Ur Renal Epithelial Cell Urine Bacteria Ur Culture Indicated? SARS-CoV-2 (PCR) Blood Type Antibody Screen 05/06/21 05/06/21 05/06/21 18:10 18:10 18:10 WBC RBC Hgb Hct MCV MCH MCHC RDW Plt Count Neut % (Auto) Lymph % (Auto) [place] % (Auto) Eos % (Auto) Baso % (Auto) Neut # (Auto) Lymph # (Auto) [place] # (Auto) Eos # (Auto) Baso # (Auto) PT 9.9 L INR 0.9 APTT Sodium Potassium Chloride Carbon Dioxide BUN Creatinine Estimated GFR BUN/Creatinine Ratio Glucose Calcium Magnesium 1.9 Total Bilirubin AST ALT Alkaline Phosphatase Total Protein Albumin Globulin Albumin/Globulin Ratio Urine RBC Urine WBC Ur Renal Epithelial Cell Urine Bacteria Ur Culture Indicated? SARS-CoV-2 (PCR) Blood Type O Positive Antibody Screen Negative 05/06/21 05/06/21 18:55 21:15 WBC RBC Hgb Hct MCV MCH MCHC RDW Plt Count Neut % (Auto) Lymph % (Auto) [place] % (Auto) Eos % (Auto) Baso % (Auto) Neut # (Auto) Lymph # (Auto) [place] # (Auto) Eos # (Auto) Baso # (Auto) PT INR APTT Sodium Potassium Chloride Carbon Dioxide BUN Creatinine Estimated GFR BUN/Creatinine Ratio Glucose Calcium Magnesium Total Bilirubin AST ALT Alkaline Phosphatase Total Protein Albumin Globulin Albumin/Globulin Ratio Urine RBC None seen Urine WBC 5-10/hpf H Ur Renal Epithelial Cell 1-5/hpf H Urine Bacteria None seen Ur Culture Indicated? Specimen cultured SARS-CoV-2 (PCR) Negative Blood Type Antibody Screen Assessment & Plan Assessment & Plan narrative: Patient is a 85-year-old female Janessa Fuentes nonsmoker with history of hypertension, hyperlipidemia, anemia, and GERD who presented to the ED with her with a chief complaint of a large painless bloody bowel movement earlier today and occasional abdominal pain. 1. Lower GI bleed, acute, in the setting of chronic anemia treated with iron, acute on chronic, present on admission - HGB 11, HCT 33.4,chloride 108, BUN 18, GFR 56 which is patient's baseline. Hemoccult-positive. Urine was cultured. -Type and cross blood type O+ -ED visit 04/23/2021 diagnosis gastroenteritis -Rule out upper GI &/or Lower GI Bleeding, duodenitis, esophageal varices, portal hypertensive gastropathy, angiodysplasia, gastric reflux, gastritis, peptic ulcer disease, aerophagia, Lisha-Garza tear, and or gastric cancer. -closely monitor airway, clinical status, vital signs, cardiac rhythm, -call for heart rate> 100, systolic BP< 100, activity-as tolerated with fall precautions -No Medication VTE/DVT prophylaxis due to bleeding risk. -comorbidities that complicate or exacerbate anemia condition include coronary artery disease, older patient age, and COPD. -Protonix 40mg IV BID -monitor for further bleeding overnight repeat H&H, likely patient can follow-up as an outpatient with GI for further evaluation. -gentle hydration LR at 60 cc/hour -continue patient's ferrous sulfate and sulfasalazine 2. Essential hypertension, acute on chronic, present on admission, uncontrolled -continue patient's lisinopril and amlodipine 3. Hyperlipidemia, chronic, present on admission -continue patient's Lipitor 4. GERD, chronic, present on admission -Continue patient's omeprazole 5.Osteoporosis, chronic, present on admission -continue patient's Evista 6. Recurrent kidney stones, chronic, present on admission -continue patient's Flomax Code status:Full Surrogate decision maker: Jasvir Fuentes spouse COVID PCR:Negative COVID vaccination: Unknown DVT/VTE prophylaxis: No medication, SCD only Disposition: Patient admitted for observation for GI bleeding, estimated length of stay less than 2 midnights. I have utilized all available immediate resources to obtain, update, or review the patient's current medications. I confirmed that the patient's advanced care plan is present, Code status is documented and/or surrogate decision maker is listed in the patient's medical record. Time Spent With Patient Critical Care time: I spent a total of [] minutes of critical care time on this patient's care today; this time is exclusive of procedural time. Scores GCS [place] coma scale eye opening: Spontaneous [place] coma scale verbal response: Orientated [place] coma scale motor response: Obey commands [place] coma scale total score: 15
[2021-05-07 05:35] LABS: Add Manual Diff / Slide Review NO; Basophils Absolute Auto 0 /uL (0-100); Basophils Percent Auto 0.7 % (0-2); Eosinophils Absolute Auto 100 /uL (0-450); Eosinophils Percent Auto 3.2 % (2-4); Hematocrit 31.3 % (36-46); Hemoglobin 10.3 g/dL (12.0-16.0); Lymphocytes Absolute Auto 1100 /uL (1100-4500); Lymphocytes Percent Auto 29.6 % (25-40); Mean Corpuscular Hemoglobin 31.1 PG (26-34); Mean Corpuscular Volume 94.2 fL (80-100); Monocytes Absolute Auto 300 /uL (0-900); Monocytes Percent Auto 7.9 % (3-14); Neutrophils Absolute Auto 2200 /uL (1500-7000); Neutrophils Percent Auto 58.6 % (50-75); Platelet Count 132 X10^3/uL (150-400); Red Blood Cell Count 3.32 X10^6/uL (4.0-5.2); White Blood Cell Count 3.7 X10^3/uL (4.5-11.0)
[2021-05-07 05:52] LABS: INR 0.9 (0.9-1.3); Prothrombin Time 10.4 SECONDS (10.1-12.7)
[2021-05-07 05:54] LABS: PTT Partial Thromboplastin Tim 32 SECONDS (26.4-36.2)
[2021-05-07 06:12] LABS: Alanine Aminotransferase 11 IU/L (<35); Albumin 3.5 g/dL (3.5-5.0); Albumin Globulin Ratio 1.3 (1.0-2.8); Alkaline Phosphatase 59 U/L (38-126); Aspartate Aminotransferase 27 IU/L (14-36); BUN Creatinine Ratio 16.9 (6-22); Bilirubin Total 0.2 mg/dL (0.2-1.3); Blood Urea Nitrogen 13 mg/dL (7-17); Calcium 8.8 mg/dL (8.4-10.2); Carbon Dioxide 29 mmol/L (22-32); Chloride 110 mmol/L (98-107); Estimated Glomerular Filt Rate > 60.0 mL/min (>60); Globulin 2.6 g/dL (1.7-4.1); Glucose 92 mg/dL (80-110); HEMOLYSIS < 15 (0-50); Potassium 3.5 mmol/L (3.4-5.1); Sodium 143 mmol/L (137-145); Total Protein 6.1 g/dL (6.3-8.2)
[2021-05-07] MEDS: LOSARTAN 50 MG TABLET PO (08:47)
[2021-05-07] MEDS: sulfaSALAzine 500 MG TABLET PO ×3 (08:48→20:20)
[2021-05-07] MEDS: lisinopriL 10 MG TABLET 20 MG PO ×2 (08:48→20:20)
[2021-05-07] MEDS: PANTOPRAZOLE 40 MG VIAL IV ×2 (08:48→20:20)
--- NOTE | 2021-05-07 11:02 | CM.DANOTE ---
Patient is an 85 yo female who was admitted on 05/06/21 for Bloody Stool. Pt has [facility] and [facility] for insurance and her PCP is Dr. Vaibhav Arevalo. EMR was reviewed. Per MD, pt with lower GI Bleed and full code and if remains stable may be able to d/c later today. SW met bedside with pt and explained role and pt confirms that she lives in [place] with her spouse at home and is active and independent at baseline with ADL's. Spouse mostly drives. Pt denies any hx of HH or SNF. Pt states they have not completed Living Will/DPOA pwk yet and therefore DPOA is informally her spouse. Pt states he spouse will be bedside later this morning and will be her transport home once medically stable to leave and does not anticipate any SW needs at d/c at this time. Plan: SW to follow for possible d/c home later today via spouse POV if she remains stable and any further identified discharge planning needs. KENDY Navarro Discharge Planning/Care Management CM Discharge Assessment Start: 05/07/21 11:01 Freq: Status: Active Protocol: Document 05/07/21 11:01 (Rec: 05/07/21 11:02 [id number]) Discharge Planning Assessment Assigned School Nurse KENDY Arauz DPOA/Assigned Designee Name none, informally spouse Jasvir Contact Information [phone] Advance Directives? Yes Advance Directives on File No History Provided By Patient,Medical Record Has Patient been admitted in last 30 No days? Prior Living Arrangements House Household Members spouse Type of transporation used prior to Relies on Others admit Independent with ADL's Yes Is patient alert and oriented? Yes Caregiver for Another No Barriers to Discharge No Discharge Plan Home Transportation Arrangement Spouse will be bedside and can transport at d/c Referrals Initiated None needed Whiteboard Updated in Patient Room with Yes name and ext. # of School Nurse Review Status In Process Please Provide Date Initial DC 05/07/21 Assessment Was Performed Next Review Type Continued Stay Review
[2021-05-07 13:43] LABS: Hematocrit 32.9 % (36-46); Hemoglobin 10.8 g/dL (12.0-16.0); Mean Corpuscular HGB Conc 32.9 % (30-36); Mean Corpuscular Hemoglobin 31.3 PG (26-34); Mean Corpuscular Volume 95.2 fL (80-100); Platelet Count 149 X10^3/uL (150-400); Red Blood Cell Count 3.46 X10^6/uL (4.0-5.2); Red Cell Distribution Width 15.1 % (11.6-14.8); White Blood Cell Count 5.4 X10^3/uL (4.5-11.0)
[2021-05-07] MEDS: LACTATED RINGERS 1,000 ML 60 ML IV (14:43)
--- NOTE | 2021-05-07 16:34 | P.PN_ITS ---
Subjective Subjective Date Patient Seen: 05/07/21 Time Patient Seen: 08:00 Interval history: Today she feels well. No abdominal pain, no lighteadednes/dizzines. No shortness of breath. Earlier today she had a bowel movement with blood in stool, dark in color. Exam Vital Signs (past 8 hours): - 05/07/21 08:47 05/07/21 08:48 05/07/21 08:54 Temperature Pulse Rate 67 67 Pulse Rate [Orthostatic Lying] 59 L Pulse Rate [Orthostatic Sitting] 85 Pulse Rate [Orthostatic Standing] 88 Respiratory Rate Blood Pressure 147/68 H 147/68 H Blood Pressure [Orthostatic Lying] 171/70 H Blood Pressure [Orthostatic Sitting] 181/76 H Blood Pressure [Orthostatic Standing] 161/90 H Pulse Oximetry 05/07/21 09:00 05/07/21 10:00 05/07/21 11:30 Temperature 97.7 F Pulse Rate 54 L Pulse Rate [Orthostatic Lying] Pulse Rate [Orthostatic Sitting] Pulse Rate [Orthostatic Standing] Respiratory Rate 18 Blood Pressure 177/78 H Blood Pressure [Orthostatic Lying] Blood Pressure [Orthostatic Sitting] Blood Pressure [Orthostatic Standing] Pulse Oximetry 99 99 99 05/07/21 13:00 Temperature Pulse Rate Pulse Rate [Orthostatic Lying] Pulse Rate [Orthostatic Sitting] Pulse Rate [Orthostatic Standing] Respiratory Rate Blood Pressure Blood Pressure [Orthostatic Lying] Blood Pressure [Orthostatic Sitting] Blood Pressure [Orthostatic Standing] Pulse Oximetry 99 Oxygen Delivery Method Room Air Oxygen Flow Rate 0 Narrative Exam Narrative: General:? no acute distress Lungs:? clear bilaterally, no wheezes, rhonchi, rales Cardio:?regular rate and rhythm with no murmurs Abdomen:?soft, nontender, nondistended, no organomegaly, normal bowel sounds Objective Labs Result Diagrams: 05/07/21 13:25 05/07/21 05:11 Labs: Laboratory Results - last 24 hr 05/06/21 05/06/21 05/06/21 18:10 18:10 18:10 WBC 5.9 RBC 3.51 L Hgb 11.0 L Hct 33.4 L MCV 95.2 MCH 31.3 MCHC 32.9 RDW 14.8 Plt Count 165 Neut % (Auto) 63.6 Lymph % (Auto) 27.5 [place] % (Auto) 7.1 Eos % (Auto) 1.0 L Baso % (Auto) 0.8 Neut # (Auto) 3700 Lymph # (Auto) 1600 [place] # (Auto) 400 Eos # (Auto) 100 Baso # (Auto) 0 PT INR APTT 33 Sodium 141 Potassium 3.9 Chloride 108 H Carbon Dioxide 27 BUN 18 H Creatinine 0.95 Estimated GFR 56.0 L BUN/Creatinine Ratio 18.9 Glucose 100 Calcium 9.1 Magnesium Total Bilirubin 0.2 AST 31 ALT 13 Alkaline Phosphatase 91 Total Protein 7.3 Albumin 4.2 Globulin 3.1 Albumin/Globulin Ratio 1.4 Urine RBC Urine WBC Ur Renal Epithelial Cell Urine Bacteria Ur Culture Indicated? SARS-CoV-2 (PCR) Blood Type Antibody Screen 05/06/21 05/06/21 05/06/21 18:10 18:10 18:10 WBC RBC Hgb Hct MCV MCH MCHC RDW Plt Count Neut % (Auto) Lymph % (Auto) [place] % (Auto) Eos % (Auto) Baso % (Auto) Neut # (Auto) Lymph # (Auto) [place] # (Auto) Eos # (Auto) Baso # (Auto) PT 9.9 L INR 0.9 APTT Sodium Potassium Chloride Carbon Dioxide BUN Creatinine Estimated GFR BUN/Creatinine Ratio Glucose Calcium Magnesium 1.9 Total Bilirubin AST ALT Alkaline Phosphatase Total Protein Albumin Globulin Albumin/Globulin Ratio Urine RBC Urine WBC Ur Renal Epithelial Cell Urine Bacteria Ur Culture Indicated? SARS-CoV-2 (PCR) Blood Type O Positive Antibody Screen Negative 05/06/21 05/06/21 05/07/21 18:55 21:15 05:11 WBC 3.7 L RBC 3.32 L Hgb 10.3 L Hct 31.3 L MCV 94.2 MCH 31.1 MCHC 33.0 RDW 15.0 H Plt Count 132 L Neut % (Auto) 58.6 Lymph % (Auto) 29.6 [place] % (Auto) 7.9 Eos % (Auto) 3.2 Baso % (Auto) 0.7 Neut # (Auto) 2200 Lymph # (Auto) 1100 [place] # (Auto) 300 Eos # (Auto) 100 Baso # (Auto) 0 PT INR APTT Sodium Potassium Chloride Carbon Dioxide BUN Creatinine Estimated GFR BUN/Creatinine Ratio Glucose Calcium Magnesium Total Bilirubin AST ALT Alkaline Phosphatase Total Protein Albumin Globulin Albumin/Globulin Ratio Urine RBC None seen Urine WBC 5-10/hpf H Ur Renal Epithelial Cell 1-5/hpf H Urine Bacteria None seen Ur Culture Indicated? Specimen cultured SARS-CoV-2 (PCR) Negative Blood Type Antibody Screen 05/07/21 05/07/21 05/07/21 05:11 05:11 13:25 WBC 5.4 RBC 3.46 L Hgb 10.8 L Hct 32.9 L MCV 95.2 MCH 31.3 MCHC 32.9 RDW 15.1 H Plt Count 149 L Neut % (Auto) Lymph % (Auto) [place] % (Auto) Eos % (Auto) Baso % (Auto) Neut # (Auto) Lymph # (Auto) [place] # (Auto) Eos # (Auto) Baso # (Auto) PT 10.4 INR 0.9 APTT 32 Sodium 143 Potassium 3.5 Chloride 110 H Carbon Dioxide 29 BUN 13 Creatinine 0.77 Estimated GFR > 60.0 BUN/Creatinine Ratio 16.9 Glucose 92 Calcium 8.8 Magnesium Total Bilirubin 0.2 AST 27 ALT 11 Alkaline Phosphatase 59 Total Protein 6.1 L Albumin 3.5 Globulin 2.6 Albumin/Globulin Ratio 1.3 Urine RBC Urine WBC Ur Renal Epithelial Cell Urine Bacteria Ur Culture Indicated? SARS-CoV-2 (PCR) Blood Type Antibody Screen PFSH Medical History Chronic anemia Essential hypertension GERD (gastroesophageal reflux disease) Hyperlipidemia Hypertension Intracranial aneurysm Kidney stones Surgical History History of lithotripsy History of lumpectomy of right breast Family History Mother Cancer Father Arthritis Social History household members: spouse Smoking Status: Never smoker Assessment & Plan Assessment & Plan narrative: 85W with PMH HTN, HL, anemia, and GERD who comes into the hospital with bloody bowel movement. 1. GI bleed, acute, in the setting of chronic anemia treated with iron, acute on chronic, present on admission -had melena per report, possibly an upper GI bleed, started on PPI BID -has remained hemodynamically stable, hgb did drop slightly to 10.8 -type and screen ordered -monitor for further bleeding overnight repeat H&H in AM -if stable possible follow up as outpatient -continue patient's ferrous sulfate and sulfasalazine 2. Essential hypertension, acute on chronic, present on admission, uncontrolled -continue patient's lisinopril and amlodipine 3. Hyperlipidemia, chronic, present on admission -continue patient's Lipitor 4. GERD, chronic, present on admission -Continue patient's omeprazole 5.Osteoporosis, chronic, present on admission -continue patient's Evista 6. Recurrent kidney stones, chronic, present on admission -continue patient's Flomax Time Spent With Patient Critical Care time: I spent a total of [] minutes of critical care time on this patient's care today; this time is exclusive of procedural time.
[2021-05-07] MEDS: RALOXIFENE 60 MG TABLET PO (18:42)
[2021-05-08] VITALS (8 sets, daily range): BP systolic 148–182; BP diastolic 68–102; PULSE 67–95; RESP 16–18; TEMP 36.2–36.4; O2SAT 93–97
[2021-05-08 08:48] LABS: Hematocrit 36.7 % (36-46); Hemoglobin 11.9 g/dL (12.0-16.0); Mean Corpuscular HGB Conc 32.5 % (30-36); Mean Corpuscular Volume 95.3 fL (80-100); Platelet Count 162 X10^3/uL (150-400); Red Blood Cell Count 3.85 X10^6/uL (4.0-5.2); Red Cell Distribution Width 15.1 % (11.6-14.8); White Blood Cell Count 5.3 X10^3/uL (4.5-11.0)
[2021-05-08] MEDS: sulfaSALAzine 500 MG TABLET PO (09:50)
[2021-05-08] MEDS: PANTOPRAZOLE 40 MG VIAL IV (09:51)
[2021-05-08] MEDS: lisinopriL 10 MG TABLET 20 MG PO (09:51)
[2021-05-08] MEDS: SODIUM CHLORIDE 0.9% FLUSH 10 ML IV (09:51)
--- NOTE | 2021-05-08 11:43 | P.DS_ITS ---
History of Present Illness History of Present Illness Chief complaint: bloody stool Narrative: Per Mee Grimm: Patient is a 85-year-old female Janessa Fuenets nonsmoker with history of hypertension, hyperlipidemia, anemia, and GERD who presented to the ED with her with a chief complaint of a large painless bloody bowel movement earlier today and occasional abdominal pain. She states years ago she had a gastric ulcer. She feels fatigued but is not necessarily dizzy or lightheaded. She denies any chest pain or shortness of breath. She has had no nausea or vomiting. She does not have extensive alcohol history. She has been taking iron supplements as well for her chronic anemia. She has a occasional black and tarry stool. Patient's Hemoccult in ED was positive. Patient denies fever body aches or chills. Patient did not demonstrate any further bloody stools while in the facility. Upon admit to floor patient denies any abdominal pain, nausea, vomiting, or any further bleeding from the rectum or hematuria. Patient's vitals upon admit were stable temp 98?, BP 154/71, HR 67, R 13, O2 saturation 97% on room air. HGB 11, HCT 33.4. Patient's chloride 108, BUN 18, GFR 56 which is patient's baseline. Hemoccult-positive. Urine was cultured. Patient was type and cross blood type O+. Patient admitted for lower GI bleed. Discharge Providers Provider Date of admission: 05/06/21 20:55 Discharge Date: 05/08/21 Primary care physician: Vaibhav Arevalo MD Discharge provider: Jonathan Quintanilla MD Summary Hospital Course Discharge Diagnosis: 1. Acute GI bleed causing mild anemia 2. Essential hypertension 3. Hyperlipidemia 4. GERD 5. Osteoporosis Hospital Course: Ms. Fuentes came in to the hospital with an episode of bloody stool. She remained hemodynamically stable. Her baseline hemoglobin was 11 from previous blood draws, she dropped as low as 10.3. Her bleeding stopped in the hospital. She had no pain. She was placed on protonix. She required no transfusions. She was monitored and on day of discharge her hemoglobin was 11.9. She was discharged home with protonix and recommended to follow up with PCP within one week and consider for outpatient scope. Exam Vital Signs (past 8 hours): Oxygen Delivery Method Room Air Oxygen Flow Rate 0 Narrative Exam Narrative: General: no acute distress Lungs: clear bilaterally, no wheezes, rhonchi, rales Cardio: regular rate and rhythm with no murmurs Abdomen: soft, nontender, nondistended, no organomegaly, normal bowel sounds Objective Labs Result Diagrams: 05/08/21 08:20 05/07/21 05:11 [facility] Medical History Chronic anemia Essential hypertension GERD (gastroesophageal reflux disease) Hyperlipidemia Hypertension Intracranial aneurysm Kidney stones Surgical History History of lithotripsy History of lumpectomy of right breast Family History Mother Cancer Father Arthritis Social History household members: spouse Smoking Status: Never smoker Discharge Plan Discharge Plan Patient Disposition: Home Provider Discharge Comment: Ms. Fuentes came in to the hospital with blood in her stool. She was started on an acid reducing medicine protonix. Her bleeding stopped. Her blood counts remained appropriate, and she did not need a blood transfusion. She will be discharged home. She should hold her aspirin for one week and talk to her PCP about restarting this medication. If further bleeding occurs she should be possibly evaluated with endoscopy or colonoscopy. Discharge orders & Medications Prescriptions: New pantoprazole 20 mg Tablet,Delayed Release (Dr/Ec) 40 mg PO BID Qty: 60 RF: 0 Continued lisinopril 10 MG tablet 20 mg PO BID Qty: 0 RF: 0 raloxifene [Evista] 60 MG tablet 60 mg PO QPM Qty: 0 RF: 0 cholecalciferol (vitamin D3) [Vitamin D3] 1,000 unit Tablet 1,000 unit PO DAILY Qty: 0 RF: 0 sulfasalazine 500 mg tablet 500 mg PO TID RF: 0 folic acid 1 mg tablet 1 mg PO DAILY RF: 0 ferrous sulfate 324 mg (65 mg iron) tablet,delayed release (DR/EC) 324 mg PO DAILY RF: 0 ondansetron 4 mg tablet,disintegrating 4 mg PO Q8H PRN (Reason: nausea and vomiting) Qty: 10 RF: 0 losartan 50 mg tablet 50 mg PO BID RF: 0 nitroglycerin 0.4 mg tablet, sublingual 0.4 mg sublingual Q5MIN MDD 3 RF: 0 amlodipine 5 mg tablet RF: 0 guanfacine 1 mg tablet RF: 0 Discontinued aspirin 325 mg tablet,delayed release (DR/EC) 325 mg PO QPM RF: 0 omeprazole 20 mg capsule,delayed release(DR/EC) 20 mg PO BID RF: 0 Follow up/Referrals: Vaibhav Arevalo MD [Primary Care Provider] - Diet/Activity/Treatments Diet: Regular Visit Report/Discharge Packet Instructions: Gastrointestinal Bleeding Discharge Data Primary Care Provider: Vaibhav Arevalo Attending Provider: Mee Grimm [facility] - [place] The patient has current or prior documentation of left ventricular ejection fraction (LVEF) less than 40%, or moderate or severely depressed left michael tricular systolic function.: No
--- NOTE | 2021-05-08 11:52 | CM.DPC ---
DCP Discharge Home: Per MD, pt is medically stable to d/c home today with no identified barriers to d/c and her GI bleed has resolved. Pt has supportive sister bedside to provide transport home today and no concerns noted. Plan: Patient to d/c home today via POV and no SW needs at this time. KENDY Navarro
--- NOTE | 2021-05-08 14:16 | CM.DPC ---
Pt A&Ox3, VSS, afebrile, on RA. Pt with x1 soft BM majority brown, small amount dark tarry. Pt with good po intake. Denies pain. MD at bedside this a.m. clearing patient for discharge home. Pt notifies to transport patient. She verbalizes understanding of discharge instructions, medications, activity and follow up recommendations. At approximately 1100 pt escorted via w/ch with MEDICAL AFFAIRS MANAGER to private vehicle with with all of her belongings.
== END 2021-05-08 11:00 | disposition home or self-care (01) ==
LOC: ED 18:05 → AC 20:56
PROVIDERS: Emergency Medicine; Internal Medicine; Admitting Provider Nurse Practitioner Family; Emergency Provider Emergency Medicine; Family Provider Family Medicine; PCP Family Medicine; Referring Provider Emergency Medicine; Visit Provider Nurse Practitioner Family
DX: K92.1 Melena (principal); D64.9 Anemia, unspecified; I10 Essential (primary) hypertension; E78.5 Hyperlipidemia, unspecified; K21.9 Gastro-esophageal reflux disease without esophagitis; M81.0 Age-related osteoporosis without current pathological fracture; Z87.442 Personal history of urinary calculi; Z20.822 Contact with and (suspected) exposure to COVID-19
CPT/HCPCS: 36415; 80053; 81003; 81015; 83735; 85025; 85027; 85610; 85730; 86850; 86900; 86901; 87086; 87635; 94760; 96361; 96374; 99284; 99406; C9803; G0378; C9113

== ENCOUNTER 2021-05-30 20:31 | Observation (INO) | payer MEDICARE, OTHER, SELFPAY ==
[2021-05-06 21:21] VITALS: BMI 18.8
[2021-05-30] VITALS (16 sets, daily range): BP systolic 148–244; BP diastolic 66–114; PULSE 51–82; RESP 12–24; TEMP 36.7; O2SAT 97–99; BMI 19.2
--- NOTE | 2021-05-30 20:39 | DI.RAD.S_ITS ---
PROCEDURE: XR CHEST 1V INDICATIONS: chest pain TECHNIQUE: One view of the chest was acquired. COMPARISON: [facility], CR, XR CHEST 1V, 11/28/2018, 11:28. FINDINGS: Surgical changes and devices: Lower cervical spine fusion. Lungs and pleura: Lungs are clear. No pleural effusions or pneumothorax. Mediastinum: Mediastinal contours appear normal. Heart size is normal. Bones and chest wall: No suspicious bony lesions. Overlying soft tissues appear unremarkable. IMPRESSION: No acute cardiopulmonary disease. Dictated by: Mariano Cohen M.D. on 05/30/2021 at 21:05 Approved by: Mariano Cohen M.D. on 05/30/2021 at 21:05
[2021-05-30] MEDS: SODIUM CHLORIDE 0.9% 1,000 ML 125 ML IV (20:54)
[2021-05-30] MEDS: ASPIRIN 81 MG CHEW TAB 324 MG PO (20:56)
[2021-05-30] MEDS: NITROGLYCERIN 0.4 MG SL TAB SL ×2 (20:56→21:03)
[2021-05-30 21:09] LABS: Add Manual Diff / Slide Review NO; Basophils Absolute Auto 0 /uL (0-100); Basophils Percent Auto 0.5 % (0-2); Eosinophils Absolute Auto 100 /uL (0-450); Eosinophils Percent Auto 2.4 % (2-4); Hematocrit 34.5 % (36-46); Hemoglobin 11.1 g/dL (12.0-16.0); Lymphocytes Absolute Auto 1600 /uL (1100-4500); Lymphocytes Percent Auto 34.3 % (25-40); Mean Corpuscular HGB Conc 32.2 % (30-36); Mean Corpuscular Hemoglobin 30.5 PG (26-34); Mean Corpuscular Volume 94.5 fL (80-100); Monocytes Absolute Auto 400 /uL (0-900); Monocytes Percent Auto 7.4 % (3-14); Neutrophils Absolute Auto 2700 /uL (1500-7000); Neutrophils Percent Auto 55.4 % (50-75); Platelet Count 143 X10^3/uL (150-400); Red Blood Cell Count 3.65 X10^6/uL (4.0-5.2); White Blood Cell Count 4.8 X10^3/uL (4.5-11.0)
[2021-05-30 21:12] LABS: COVID19 -Nasal RAPID Negative (Negative)
[2021-05-30 21:18] LABS: Alanine Aminotransferase 11 IU/L (<35); Albumin 4.2 g/dL (3.5-5.0); Albumin Globulin Ratio 1.3 (1.0-2.8); Alkaline Phosphatase 88 U/L (38-126); Aspartate Aminotransferase 28 IU/L (14-36); BUN Creatinine Ratio 15.8 (6-22); Bilirubin Total 0.3 mg/dL (0.2-1.3); Blood Urea Nitrogen 16 mg/dL (7-17); Calcium 9.1 mg/dL (8.4-10.2); Carbon Dioxide 28 mmol/L (22-32); Chloride 106 mmol/L (98-107); Creatine Kinase 60 U/L (30-135); Estimated Glomerular Filt Rate 52.2 mL/min (>60); Globulin 3.3 g/dL (1.7-4.1); Glucose 118 mg/dL (80-110); HEMOLYSIS < 15 (0-50); Lipase 74 U/L (23-300); Magnesium 1.9 mg/dL (1.6-2.3); Potassium 3.4 mmol/L (3.4-5.1); Sodium 141 mmol/L (137-145); Total Protein 7.5 g/dL (6.3-8.2)
[2021-05-30 21:30] LABS: NT-proBNP (BNP-Adult 18+) 280 pg/mL (<450); Troponin I < 0.012 ng/mL (0.01-0.034)
[2021-05-30 22:15] LABS: D Dimer 433 ng/mL (<230)
[2021-05-30 23:19] LABS: Troponin I < 0.012 ng/mL (0.01-0.034)
--- NOTE | 2021-05-30 23:39 | ED.CHESTPAIN ---
HPI - Chest Pain General Chief Complaint: Chest Pain Stated Complaint: CHEST PAIN Time Seen by Provider: 05/30/21 20:34 Source: patient and family Mode of arrival: Ambulatory History of Present Illness HPI narrative: 85-year-old female nonsmoker with history of hypertension presents with her in the chief complaint of squeezing retrosternal chest pressure that started just prior to her arrival. She states she felt like it got worse when she walked in and probably improved with some rest. She has nitro at home which had been prescribed by her PCP, she states she took a nitro at home and it made her discomfort go away. She states that it has been prescribed for her blood pressure in addition to various other medications. She denies any change in her meds or diet. She does state that she has been a bit fatigued over the past few weeks. She denies recent travel, history of blood clot or known cancer. She has had no fever or chills. She denies any obvious radiation of her discomfort but does have associated symptoms such as dizziness and lightheadedness. Related Data Home Medications Medication Instructions Recorded Confirmed cholecalciferol (vitamin D3) 25 1,000 unit PO DAILY #0 05/06/11 05/06/21 mcg (1,000 unit) tablet (Vitamin D3) lisinopril 10 mg tablet 20 mg PO BID #0 05/06/11 05/06/21 raloxifene 60 mg tablet (Evista) 60 mg PO QPM #0 05/06/11 05/06/21 ferrous sulfate 324 mg (65 mg 324 mg PO DAILY 11/28/18 05/06/21 iron) tablet,delayed release folic acid 1 mg tablet 1 mg PO DAILY 11/28/18 05/06/21 sulfasalazine 500 mg tablet 500 mg PO TID 11/28/18 05/06/21 amlodipine 5 mg tablet mg 05/06/21 guanfacine 1 mg tablet mg 05/06/21 losartan 50 mg tablet 50 mg PO BID 05/06/21 05/06/21 nitroglycerin 0.4 mg sublingual 0.4 mg SUBLINGUAL Q5MIN MDD 3 05/06/21 05/06/21 tablet Previous Rx's Medication Instructions Recorded ondansetron 4 mg disintegrating 4 mg PO Q8H PRN #10 tab 04/11/19 tablet pantoprazole 20 mg tablet,delayed 40 mg PO BID #60 tab 05/08/21 release Allergies Allergy/AdvReac Type Severity Reaction Status Date / Time shellfish derived Allergy Hives Verified 05/30/21 23:47 ibuprofen [From MOTRIN] AdvReac Mild UPSET Verified 04/23/20 14:33 STOMACH Review of Systems Review of Systems Narrative: GENERAL: See HPI HEENT: Denies sinus pain, ear pain, sore throat, difficulty swallowing, dizziness. RESPIRATORY: Denies dyspnea, cough, wheezing, hemoptysis, sputum. CARDIOVASCULAR: See HPI GASTROINTESTINAL: Denies nausea, vomiting, abdominal pain, diarrhea, constipation, melena. : Denies dysuria, frequency, incontinence, hematuria, urinary retention. MUSCULOSKELETAL: denies weakness, joint pain, or bony pain SKIN: Denies rash, skin lesions, or other NEUROLOGIC: Denies weakness, headache, numbness, change in speech, confusion, seizures, incoordination. PSYCHIATRIC: No concerning psychosocial issues. 12 point review of systems is negative except for those stated above Patient History Medical History Chronic anemia Essential hypertension GERD (gastroesophageal reflux disease) Hyperlipidemia Hypertension Intracranial aneurysm Kidney stones Surgical History History of lithotripsy History of lumpectomy of right breast Family History Mother Cancer Father Arthritis Social History household members: spouse Smoking Status: Never smoker Smoking Status: Never smoker alcohol intake frequency: holidays/special occasions only Substance Use Type: does not use Exam Narrative Exam Narrative: GENERAL: [85 year old patient appears stated age. Well-developed patient, in mild distress. HEAD: Atraumatic. Normocephalic. EYES: Pupils equal round and reactive. Extraocular motions intact. No scleral icterus. No injection or drainage. ENT: Nose without bleeding, purulent drainage. Throat without erythema, tonsillar hypertrophy or exudate. Airway patent. NECK: Trachea midline. Non tender CARDIOVASCULAR: Regular rate and rhythm without murmurs, gallops, or rubs. RESPIRATORY: Clear to auscultation. Breath sounds equal bilaterally. No wheezes, rales, or rhonchi. GASTROINTESTINAL: Abdomen soft, non-tender, nondistended. EXTREMITIES: No edema or joint tenderness. BACK: Nontender without deformity or crepitance. No flank tenderness. NEURO: AOx3. SKIN: No rash or erythema of visible areas Initial Vital Signs Initial Vital Signs: Vital Signs Blood Pressure 244/107 H 05/30/21 20:37 Scores HEART Score Heart Score history: Moderately Suspicious Heart Score EKG: Normal Heart Score Age: > or = 65 years old Heart Score risk factors: > 3 risk factors or hx of atherosclerotic disease Heart Score troponin: < or = to normal limit Heart Score Total: 5 Course Orders Ordered: ED Orders 05/30/21 20:39 XR chest 1V Stat EKG-12 Lead Stat 05/30/21 20:45 COVID19 -Nasal swab/Pre-Proc Stat 05/30/21 20:58 Complete Blood Count AUTO DIFF Stat Comprehensive Metabolic Panel Stat Lipase Stat Magnesium Stat NT-proBNP (BNP-Adult 18+) Stat Troponin & CK Cardiac Panel Stat 05/30/21 21:37 D Dimer Stat 05/30/21 22:35 COVID19 - ADMIT (CHEMISTRY QUALITY CONTROL TECHNICIAN swab/PCR) Stat Troponin I Stat 05/30/21 23:41 CT angio chest PE protocol Stat Sodium Chloride (Normal Saline 0.9%) 1,000 mls @ 125 mls/hr IV CONT BREANNE Last Admin: 05/30/21 20:54 Dose: 125 mls/hr Documented by: GIBSON Nitroglycerin (Nitroglycerin 0.4 Mg Sl Tab) 0.4 mg SL [id number] PRN PRN Reason: Chest Pain Last Admin: 05/30/21 21:03 Dose: 0.4 mg Documented by: Admin: 05/30/21 20:56 Dose: 0.4 mg Documented by: GIBSON Discontinued Medications Aspirin (Aspirin 81 Mg Chew Tab) 324 mg PO NOW ONE Stop: 05/30/21 20:39 Last Admin: 05/30/21 20:56 Dose: 324 mg Documented by: GIBSON Reevaluation(s) Reevaluation #1: Patient's pain dropped from an 8/10 down to a 4 or 5 after the 1st nitro and the blood pressure drop in the 200s down to the 160s. Reevaluation #2: patient reports resolution of pain after 2nd nitro. BP greatly improved. Reevaluation #3: patient no longer having the squeezing or heavy pressure but not has sharp and stabbing pain which is worse with breathing. DDImer above age corrected cutoff. CTA ordered Vital Signs Vital signs: Vital Signs - 8 hr 05/30/21 20:37 05/30/21 20:38 05/30/21 20:42 Temperature 98.1 F Pulse Rate 66 74 Respiratory Rate 12 20 Blood Pressure 244/107 H 244/107 H Pulse Oximetry 98 05/30/21 20:56 05/30/21 20:58 05/30/21 21:00 Temperature Pulse Rate 73 69 73 Respiratory Rate 15 14 Blood Pressure 205/114 H 205/114 H 197/86 H Pulse Oximetry 05/30/21 21:03 05/30/21 21:04 05/30/21 21:10 Temperature Pulse Rate 79 80 82 Respiratory Rate 12 24 Blood Pressure 165/77 H 165/77 H 155/66 H Pulse Oximetry 99 98 05/30/21 21:30 05/30/21 22:00 05/30/21 22:30 Temperature Pulse Rate 57 L 53 L 51 L Respiratory Rate 12 14 15 Blood Pressure 160/70 H 164/67 H Pulse Oximetry 98 99 98 05/30/21 22:31 05/30/21 23:00 05/30/21 23:30 Temperature Pulse Rate 51 L 52 L 55 L Respiratory Rate 18 24 14 Blood Pressure 148/66 H 158/70 H 180/74 H Pulse Oximetry 98 98 97 05/30/21 23:58 Temperature Pulse Rate 68 Respiratory Rate 12 Blood Pressure 182/79 H Pulse Oximetry MDM - Chest Pain Lab Data Result diagrams: 05/30/21 20:58 05/30/21 20:58 Labs: Lab Results 05/30/21 05/30/21 05/30/21 Range/Units 20:45 20:58 20:58 WBC 4.8 (4.5-11.0) X10^3/uL RBC 3.65 L (4.0-5.2) X10^6/uL Hgb 11.1 L (12.0-16.0) g/dL Hct 34.5 L (36-46) % MCV 94.5 (80-100) fL MCH 30.5 (26-34) PG MCHC 32.2 (30-36) % RDW 14.0 (11.6-14.8) % Plt Count 143 L (150-400) X10^3/uL Neut % (Auto) 55.4 (50-75) % Lymph % (Auto) 34.3 (25-40) % [place] % (Auto) 7.4 (3-14) % Eos % (Auto) 2.4 (2-4) % Baso % (Auto) 0.5 (0-2) % Neut # (Auto) 2700 (2610-8865) /uL Lymph # (Auto) 1600 (2602-1975) /uL [place] # (Auto) 400 (0-900) /uL Eos # (Auto) 100 (0-450) /uL Baso # (Auto) 0 (0-100) /uL D-Dimer (<230) ng/mL Sodium 141 (137-145) mmol/L Potassium 3.4 (3.4-5.1) mmol/L Chloride 106 (98-107) mmol/L Carbon Dioxide 28 (22-32) mmol/L BUN 16 (7-17) mg/dL Creatinine 1.01 (0.52-1.04) mg/dL Estimated GFR 52.2 L (>60) mL/min BUN/Creatinine Ratio 15.8 (6-22) Glucose 118 H (80-110) mg/dL Calcium 9.1 (8.4-10.2) mg/dL Magnesium 1.9 (1.6-2.3) mg/dL Total Bilirubin 0.3 (0.2-1.3) mg/dL AST 28 (14-36) IU/L ALT 11 (<35) IU/L Alkaline Phosphatase 88 (38-126) U/L Total Creatine Kinase 60 (30-135) U/L CK-MB (CK-2) TNP CK-MB (CK-2) Rel Index TNP Troponin I < 0.012 (0.01-0.034) ng/mL NT-Pro-B Natriuret Pep 280 (<450) pg/mL Total Protein 7.5 (6.3-8.2) g/dL Albumin 4.2 (3.5-5.0) g/dL Globulin 3.3 (1.7-4.1) g/dL Albumin/Globulin Ratio 1.3 (1.0-2.8) Lipase 74 (23-300) U/L SARS-CoV-2 (PCR) Negative (Negative) 05/30/21 05/30/21 05/30/21 Range/Units 21:37 22:35 22:35 WBC (4.5-11.0) X10^3/uL RBC (4.0-5.2) X10^6/uL Hgb (12.0-16.0) g/dL Hct (36-46) % MCV (80-100) fL MCH (26-34) PG MCHC (30-36) % RDW (11.6-14.8) % Plt Count (150-400) X10^3/uL Neut % (Auto) (50-75) % Lymph % (Auto) (25-40) % [place] % (Auto) (3-14) % Eos % (Auto) (2-4) % Baso % (Auto) (0-2) % Neut # (Auto) (9872-3618) /uL Lymph # (Auto) (5812-9612) /uL [place] # (Auto) (0-900) /uL Eos # (Auto) (0-450) /uL Baso # (Auto) (0-100) /uL D-Dimer 433 H (<230) ng/mL Sodium (137-145) mmol/L Potassium (3.4-5.1) mmol/L Chloride (98-107) mmol/L Carbon Dioxide (22-32) mmol/L BUN (7-17) mg/dL Creatinine (0.52-1.04) mg/dL Estimated GFR (>60) mL/min BUN/Creatinine Ratio (6-22) Glucose (80-110) mg/dL Calcium (8.4-10.2) mg/dL Magnesium (1.6-2.3) mg/dL Total Bilirubin (0.2-1.3) mg/dL AST (14-36) IU/L ALT (<35) IU/L Alkaline Phosphatase (38-126) U/L Total Creatine Kinase (30-135) U/L CK-MB (CK-2) CK-MB (CK-2) Rel Index Troponin I < 0.012 (0.01-0.034) ng/mL NT-Pro-B Natriuret Pep (<450) pg/mL Total Protein (6.3-8.2) g/dL Albumin (3.5-5.0) g/dL Globulin (1.7-4.1) g/dL Albumin/Globulin Ratio (1.0-2.8) Lipase (23-300) U/L SARS-CoV-2 (PCR) Negative (Negative) Discharge Plan Departure Patient Disposition: Admitted as Observation Clinical Impression: Chest pain
--- NOTE | 2021-05-30 23:41 | DI.CT.S_ITS ---
PROCEDURE: CT ANGIO CHEST PE PROTOCOL INDICATIONS: pleuritic chest pain, sharp, SOB, elevated Dimer TECHNIQUE: After the administration of intravenous contrast, 2 mm thick sections acquired from the pulmonary apices to the posterior costophrenic angles. 3-dimensional maximum intensity projection (MIP) coronal and sagittal reformats were then acquired through the thorax. For radiation dose reduction, the following was used: automated exposure control, adjustment of mA and/or kV according to patient size. COMPARISON: None. FINDINGS: Image quality: Excellent. Pulmonary arteries: Pulmonary arteries are normal in size, and demonstrate no intraluminal filling defects to suggest central pulmonary embolism. Lungs and pleura: Lungs are clear. No pleural effusions or pneumothorax. Central and peripheral airways are patent. Mediastinum: Heart size is normal, without pericardial effusion. No mediastinal or hilar adenopathy. Thoracic aorta is normal in caliber and enhancement. Esophagus is normal in caliber, with hiatal hernia. Bones and chest wall: No suspicious bony lesions. Ribs and thoracic spine appear intact throughout. Thyroid gland is unremarkable. No axillary or supraclavicular adenopathy. Abdomen: Visualized upper abdominal solid organs appear normal in the early arterial phase of enhancement. IMPRESSION: 1. No pulmonary embolism. Lungs are clear. Dictated by: Krystle Kim M.D. on 05/31/2021 at 0:16 Approved by: Krystle Kim M.D. on 05/31/2021 at 0:18
[2021-05-30 23:43] LABS: COVID19 - ADMIT (NP swab/PCR) Negative (Negative)
--- NOTE | 2021-05-31 | DI.ECHO.S_ITS ---
[facility] +---------+ [facility] +---------+ : : [address] : : : : [id number] : : : : Phone: [phone] Echocardiogram Report + + :Name: MACARIO SAHU Study Date: 05/31/2021 Height: 66 in : :[facility] ReadingLocation: Weight: 119 lb : : Gender: Female BSA: 1.6 m2 : :: 1935 Age: 85 yrs BP: 180/74 mmHg: :Reason For Study: CHEST PAIN : :Ordering Physician: MILAGROS, : :BARBARA Performed By: Kary Gutiérrez : :Referring: BARBARA LINARES : + + Interpretation Summary Normal left ventricle size with ejection fraction 60-65%. Mildly dilated left atrium. Mild aortic valve sclerosis. Mild mitral annular calcification. Mild to moderate mitral regurgitation. Mild tricuspid regurgitation. The ascending aorta is mildly enlarged. Procedure: A two-dimensional transthoracic echocardiogram with color flow and Doppler was performed. The study quality was technically adequate. There is no prior echocardiogram noted for this patient. The patient was in sinus bradycardia with heart rates between 50-55 bpm during the exam. Left Ventricle: The left ventricle is normal in size and wall thickness. The ejection fraction is estimated to be 60-65%. There are no focal wall motion abnormalities. Right Ventricle: The right ventricle is normal in size and function. Atria: The left atrium is mildly dilated. Right atrial size is normal. There is no Doppler evidence for an interatrial shunt. Mitral Valve: There is mild mitral annular calcification. The mitral valve leaflets appear borderline thickened, but open well. There is mild to moderate mitral regurgitation. Aortic Valve: There is mild aortic valve sclerosis. The aortic valve is trileaflet. The aortic valve opens well. There is no aortic valve stenosis. There is trace aortic regurgitation. Tricuspid Valve: The tricuspid valve is normal in structure and function. There is mild tricuspid regurgitation. The right ventricular systolic pressure is estimated to be at least 35 mmHg based on an estimated right atrial pressure of 3 mm Hg. Pulmonic Valve: The pulmonic valve is not well seen, but is grossly normal. There is no pulmonic valvular regurgitation. Great Vessels: The aortic root is not well visualized. The ascending aorta is mildly enlarged. The IVC is of normal diameter and collapses greater than 50% with a sniff. This suggests a low right atrial pressure of 3 mm Hg. Pericardium/ Pleura There is no pericardial effusion. There is no pleural effusion. MMode/2D Measurements & Calculations LVIDd: 3.9 cm LVOT diam: 2.0 cm LVIDs: 2.5 cm Ao root diam: 3.2 cm FS: 36.1 % asc Aorta Diam: 3.4 cm IVSd: 0.96 cm LVPWd: 0.84 cm LV yepez. diameter/BSA (cm/m^2): 2.4 LV sys. diameter/BSA (cm/m^2): 1.5 LA A2 area: 20.6 cm2 RA long axis: 5.5 cm LA A4 area: 20.9 cm2 RA area: 18.2 cm2 LA length (vol): 5.8 cm RA vol: 51.9 ml LA vol: 62.4 ml RA : 32.3 ml/m2 LA vol index: 38.9 ml/m2 IVC diam: 2.0 cm RVD1 (basal): 4.0 cm TAPSE: 2.2 cm Doppler Measurements & Calculations Ao V2 max: 116.5 cm/sec LVOT Max Ismael: 103.4 cm/sec Ao V2 mean: 85.4 cm/sec LV V1 max P.3 mmHg Ao max P.4 mmHg LV V1 VTI: 26.8 cm Ao mean P.2 mmHg CANDACE(I,D): 2.6 cm2 Ao V2 VTI: 31.2 cm CANDACE(V,D): 2.7 cm2 sev ratio: 0.86 CANDACE indexed to BSA (cm^2/m^2): 1.6 MV E max ismael: 106.1 cm/sec TR max ismael: 284.5 cm/sec MV A max ismael: 106.5 cm/sec TR max P.4 mmHg MV E/A: 1.00 PA V2 max: 96.8 cm/sec Med Peak E' Ismael: 7.8 cm/sec PA V2 mean: 68.7 cm/sec E/E' med: 13.6 PA mean P.1 mmHg Lat Peak E' Ismael: 7.3 cm/sec PA pr(Accel): 10.5 mmHg E/E' lat: 14.5 E/e' average: 14.1 MV dec time: 0.19 sec SV(OT): 80.6 ml Electronically signed by: Cathy Funk on Reading Physician:05/31/2021 12:56 PM
[2021-05-31 01:00] VITALS: BP 162/58; PULSE 58; RESP 21; TEMP 36.4; O2SAT 96
[2021-05-31 01:06] VITALS: BMI 17.7
--- NOTE | 2021-05-31 01:34 | DI.NM.S_ITS ---
PROCEDURE: NM KAROLYN PERF SPECT SINGLE STUDY Exercise myocardial perfusion SPECT with gated imaging and ejection fraction RADIOPHARMACEUTICAL: 12.1 mCi Tc-99m sestamibi IV at peak exercise. INDICATIONS: evaluate chest pain TECHNIQUE: Radiopharmaceutical was injected at peak stress test. SPECT images were obtained, with perfusion images in short axis, horizontal long axis, and vertical long axis views. Gated images were reviewed using [employer] software. COMPARISON: None. CARDIAC STRESS: A standard lexiscan study was done using 0.4mg IV X1. Hemodynamic data: There is normal blood pressure and heart response to lexiscan. Symptoms: Patient denied anginal chest pain during exercise. EKG: No diagnostic changes of ischemia; no ectopy. FINDINGS: Raw data: There is good labeling of myocardium by radiotracer. No significant motion artifacts. Oiem-[id number] ratio is 0.27 (normal is less than 0.38 for sestamibi tracer, and less than 0.50 for thallium tracer). Left ventricular function: Gated images demonstrate normal left ventricle wall thickening. No segmental wall motion abnormalities. Left ventricle end diastolic volume is 68 mL. Left ventricle stress ejection fraction is 82%; normal values are above 45%. Myocardial perfusion: There is normal distribution of activity in the left and right ventricular myocardium, without focal perfusion defects, on prone imaging. IMPRESSION: Low risk, normal pharmaceutical nuclear stress test. 1) No perfusion evidence of ischemia or infarction. 2) Normal left ventricular size, wall motion, and systolic function (EF 82% post stress). 3) No ECG evidence of ischemia. 4) No angina during the study. 5) No prior nuclear stress test available for comparison. Dictated by: Noreen Patricio MD on 05/31/2021 at 16:16 Approved by: Noreen Patricio MD on 05/31/2021 at 16:19
--- NOTE | 2021-05-31 01:41 | P.HP_ITS ---
History of Present Illness History of Present Illness Date Patient Seen: 05/31/21 Time Patient Seen: 01:41 Chief complaint: CHEST PAIN Narrative: The patient is an 85 y/o female with a history of hypertension, anemia, GERD,hyperlipidiemia, recently discharged 05/08 for a GI bleed admitted [facility] for abrupt onset of chest pain. The patient was lying in bed and had acute onset sharp chest pain. The pain did not radiate, was not associated with shortness of breath, nausea, or diaphoresis. The pain lasted for 35 minutes. It then became sharp like. The patient was noted to be markedly hypertensive with a blood pressure of 244/107 initially. Her EKG showed no acute ST Twave changes and her initial troponin was negative. The patient reports having a stress test 15 years ago for subdiaphragmatic pain. She was told she had GERD. When she was hospitalized last week she was taken off her twice daily aspirin for her GI bleeding. She was placed on protonix for the GI bleeding. She has had no further bleeding since discharge. The patient underwent CT angio to r/o PE. The CT angio was negative. Her blood pressure improved following treatment in the ED. Her chest pain has since resolved. The patient is admitted to the hospital for further evaluation of chest pain. Patient History Medical History Chronic anemia Essential hypertension GERD (gastroesophageal reflux disease) Hyperlipidemia Hypertension Intracranial aneurysm Kidney stones Surgical History History of lithotripsy History of lumpectomy of right breast Family & Social History Family History Mother Cancer Father Arthritis Social History: household members spouse Safety & Behavioral: Feels Safe in Current Yes Environment Tobacco & Substance use: Smoking Status Never smoker alcohol intake frequency holiday/special occasion Substance Use Type does not use Meds Home Medications and Allergies Home Medications Medication Instructions Recorded Confirmed Type cholecalciferol (vitamin D3) 25 1,000 unit PO DAILY #0 05/06/05/06/21 History mcg (1,000 unit) tablet (Vitamin D3) lisinopril 10 mg tablet 20 mg PO BID #0 05/06/11 05/06/21 History raloxifene 60 mg tablet (Evista) 60 mg PO QPM #0 05/06/11 05/06/21 History ferrous sulfate 324 mg (65 mg 324 mg PO DAILY 11/28/18 05/06/21 History iron) tablet,delayed release folic acid 1 mg tablet 1 mg PO DAILY 11/28/18 05/06/21 History sulfasalazine 500 mg tablet 500 mg PO TID 11/28/18 05/06/21 History ondansetron 4 mg disintegrating 4 mg PO Q8H PRN #10 tab 04/11/19 05/08/21 Rx tablet amlodipine 5 mg tablet mg 05/06/21 History guanfacine 1 mg tablet mg 05/06/21 History losartan 50 mg tablet 50 mg PO BID 05/06/21 05/06/21 History nitroglycerin 0.4 mg sublingual 0.4 mg SUBLINGUAL Q5MIN MDD 3 05/06/21 05/06/21 History tablet pantoprazole 20 mg tablet,delayed 40 mg PO BID #60 tab 05/08/21 Rx release Allergies Allergy/AdvReac Type Severity Reaction Status Date / Time shellfish derived Allergy Hives Verified 05/30/21 23:47 ibuprofen [From MOTRIN] AdvReac Mild UPSET Verified 04/23/20 14:33 STOMACH Review of Systems Review of Systems Narrative: 10 point review of system is negative except as above. The patient did report mild headache. She also had some diarrhea but vomiting. Her weight is stable, she has had no fever, cough, or chills. The patient is vaccinated against Covid-19 Exam Vital Signs (past 8 hours): - 05/30/21 20:37 05/30/21 20:38 05/30/21 20:42 Temperature 98.1 F Pulse Rate 66 74 Respiratory Rate 12 20 Blood Pressure 244/107 H 244/107 H Pulse Oximetry 98 05/30/21 20:56 05/30/21 20:58 05/30/21 21:00 Temperature Pulse Rate 73 69 73 Respiratory Rate 15 14 Blood Pressure 205/114 H 205/114 H 197/86 H Pulse Oximetry 05/30/21 21:03 05/30/21 21:04 05/30/21 21:10 Temperature Pulse Rate 79 80 82 Respiratory Rate 12 24 Blood Pressure 165/77 H 165/77 H 155/66 H Pulse Oximetry 99 98 05/30/21 21:30 05/30/21 22:00 05/30/21 22:30 Temperature Pulse Rate 57 L 53 L 51 L Respiratory Rate 12 14 15 Blood Pressure 160/70 H 164/67 H Pulse Oximetry 98 99 98 05/30/21 22:31 05/30/21 23:00 05/30/21 23:30 Temperature Pulse Rate 51 L 52 L 55 L Respiratory Rate 18 24 14 Blood Pressure 148/66 H 158/70 H 180/74 H Pulse Oximetry 98 98 97 05/30/21 23:58 Temperature Pulse Rate 68 Respiratory Rate 12 Blood Pressure 182/79 H Pulse Oximetry Oxygen Delivery Method Room Air Narrative Exam Narrative: pleasant female lying in bed in no acute distress Const Other: well nourshed well developed female HENMT Other: NC/AT, PERRL, EOMI, Sclera anicteric, oropharynx with moist mucus membranes Neck Other: Supple, no adenopathy or thyromegaly Resp Other: Lungs: clear to auscultation Cardio Other: CV: RRR nl Sl S2 2/6 LIMA GI Other: abd: soft/ non tender/ non distended with no HSM Skin Other: no lesions Extrem Other: no edema Psych Other: awake, alert, and appropriate. Answers questions as indicated. no confusion, hallucinations, tremors or tics Objective ECG Impression: Sinus rhythm with no acute ST Twave abnormalities Labs Result Diagrams: 05/30/21 20:58 05/30/21 20:58 Labs: Laboratory Results - last 24 hr 05/30/21 05/30/21 05/30/21 20:45 20:58 20:58 WBC 4.8 RBC 3.65 L Hgb 11.1 L Hct 34.5 L MCV 94.5 MCH 30.5 MCHC 32.2 RDW 14.0 Plt Count 143 L Neut % (Auto) 55.4 Lymph % (Auto) 34.3 [place] % (Auto) 7.4 Eos % (Auto) 2.4 Baso % (Auto) 0.5 Neut # (Auto) 2700 Lymph # (Auto) 1600 [place] # (Auto) 400 Eos # (Auto) 100 Baso # (Auto) 0 D-Dimer Sodium 141 Potassium 3.4 Chloride 106 Carbon Dioxide 28 BUN 16 Creatinine 1.01 Estimated GFR 52.2 L BUN/Creatinine Ratio 15.8 Glucose 118 H Calcium 9.1 Magnesium 1.9 Total Bilirubin 0.3 AST 28 ALT 11 Alkaline Phosphatase 88 Total Creatine Kinase 60 CK-MB (CK-2) TNP CK-MB (CK-2) Rel Index TNP Troponin I < 0.012 NT-Pro-B Natriuret Pep 280 Total Protein 7.5 Albumin 4.2 Globulin 3.3 Albumin/Globulin Ratio 1.3 Lipase 74 SARS-CoV-2 (PCR) Negative 05/30/21 05/30/21 05/30/21 21:37 22:35 22:35 WBC RBC Hgb Hct MCV MCH MCHC RDW Plt Count Neut % (Auto) Lymph % (Auto) [place] % (Auto) Eos % (Auto) Baso % (Auto) Neut # (Auto) Lymph # (Auto) [place] # (Auto) Eos # (Auto) Baso # (Auto) D-Dimer 433 H Sodium Potassium Chloride Carbon Dioxide BUN Creatinine Estimated GFR BUN/Creatinine Ratio Glucose Calcium Magnesium Total Bilirubin AST ALT Alkaline Phosphatase Total Creatine Kinase CK-MB (CK-2) CK-MB (CK-2) Rel Index Troponin I < 0.012 NT-Pro-B Natriuret Pep Total Protein Albumin Globulin Albumin/Globulin Ratio Lipase SARS-CoV-2 (PCR) Negative Assessment & Plan Assessment & Plan narrative: 85 y/o female with multiple risk factors ( HTN, Hyperlipidemia, Age) for cardiac disease admitted to the hospital for evaluation of chest pain. -EKG and Cardiac Enzymes negative -CT Angio reveals no PE or explaination of her chest pain -patient with a recent GI Bleed and discontinued from aspirin ( this may be a precipitant) -She also has a history of GERD as well -Given her multiple risk factors, age, and clinical presentation agree with further evaluation. She may have ischemia related to her markedly elevated blood pressure. -Will obtain serial enzymes, cardiac echo tomorrow, Nuclear Medicine stress test tomorrow -continue baby asa, nitro -DVT prophylaxis with lovenox, check fastin lipid profile Malignant Hypertension -This may have contributed to her chest pain -will continue her losartan, amlodipine, for now -consider adding B-rell if blood pressure remains elevated -Echo to evaluate LV function Recent GI bleed -no further bleeding since discharge -.5 -continue PPI arthritis -continue sulfasalazine I have utilize all available resources to review, update, and confirm current medications. Patient reports she is a full code, this has been noted in her record She reports her is her surrogate decision maker. Patient will be placed in observation pending the results of studies as indicated above Time Spent With Patient Critical Care time: I spent a total of [] minutes of critical care time on this patient's care today; this time is exclusive of procedural time.
[2021-05-31 02:39] LABS: Troponin I < 0.012 ng/mL (0.01-0.034)
[2021-05-31] MEDS: DEXTROSE 5%-0.9% NS 1,000 ML 100 ML IV (02:59)
[2021-05-31 05:58] VITALS: BP 153/67; PULSE 50; RESP 16; TEMP 36.4; O2SAT 96
[2021-05-31 06:13] LABS: Add Manual Diff / Slide Review NO; Basophils Absolute Auto 0 /uL (0-100); Basophils Percent Auto 0.7 % (0-2); Eosinophils Absolute Auto 100 /uL (0-450); Eosinophils Percent Auto 2.6 % (2-4); Hematocrit 34.1 % (36-46); Lymphocytes Absolute Auto 1300 /uL (1100-4500); Lymphocytes Percent Auto 31.3 % (25-40); Mean Corpuscular HGB Conc 32.3 % (30-36); Mean Corpuscular Hemoglobin 30.7 PG (26-34); Monocytes Absolute Auto 300 /uL (0-900); Monocytes Percent Auto 7.6 % (3-14); Neutrophils Absolute Auto 2400 /uL (1500-7000); Neutrophils Percent Auto 57.8 % (50-75); Platelet Count 134 X10^3/uL (150-400); Red Blood Cell Count 3.59 X10^6/uL (4.0-5.2); Red Cell Distribution Width 13.7 % (11.6-14.8); White Blood Cell Count 4.1 X10^3/uL (4.5-11.0)
[2021-05-31 06:17] LABS: Cholesterol 171 mg/dL (140-199); HDL Cholesterol 61 mg/dL (40-60); LDL Cholesterol Calculated 86 mg/dL (<100); Triglycerides 122 mg/dL (35-150)
--- NOTE | 2021-05-31 06:17 | PC.NURSE ---
Pleasant alert and oriented patient arrived to floor denying chest pain. Belongings kept with patient include purse,wallet, white clear stone earrings, white metal and white clear stone ring on wedding finger. Clothing in bag in closet. Patient was informed she can put items in safe if she wishes. Portable pulse oximetry set up in room by RT. Room monitor not working. IVF changed per provider order. Continues to deny pain at this time.
[2021-05-31 06:18] LABS: BUN Creatinine Ratio 17.3 (6-22); Blood Urea Nitrogen 13 mg/dL (7-17); Calcium 8.6 mg/dL (8.4-10.2); Carbon Dioxide 26 mmol/L (22-32); Chloride 110 mmol/L (98-107); Estimated Glomerular Filt Rate > 60.0 mL/min (>60); Glucose 108 mg/dL (80-110); HEMOLYSIS 29 (0-50); Potassium 3.7 mmol/L (3.4-5.1); Sodium 141 mmol/L (137-145)
[2021-05-31 08:00] VITALS: BP 157/70; PULSE 52; RESP 18; TEMP 36.3; O2SAT 97
--- NOTE | 2021-05-31 09:24 | CM.DANOTE ---
DCP: Case received, EMR reviewed and met with patient. Introduced self and role. Was able to obtain information regarding patient's baseline activity status prior to hospitalization. DCP assessment completed with information currently available. Patient is an 85 year old female who admitted early this morning to the care of the hospitalist team. PCP: Dr. Arevalo. Payer: confirmed: Medicare/ for Life. Patient came to the hospital via private vehicle. She had taken nitro at home, and was continuing to have chest pain. Patient was recently here at the hospital on 05/08 for GI Bleed. Patient was also noted to be hypertensive. She is here for a cardiac work up. Met with patient in her room. She was laying in bed, pleasant. Confirmed with her that she resides in [place] with her spouse, Jasvir. She stated that she is independent at her baseline. Asked her if she was still driving, and she indicated, just not on the freeway. P: DCP to continue to follow. Patient should be able to go home when she is deemed medically stable. Roma Galeano RN/Mobile Application Architect Discharge Planning/Care Management Advanced directive, confirm from CLIN[facility] Start: 05/31/21 01:55 Freq: Q24H Status: Active Protocol: Document 05/31/21 01:55 DL (Rec: 05/31/21 02:50 DL [id number]) Advance Directive, confirm on record Time 01:30 Person contacted patient Copy received No CM Discharge Assessment Start: 05/31/21 09:15 Freq: Status: Active Protocol: Document 05/31/21 09:15 (Rec: 05/31/21 09:23 [id number]) Discharge Planning Assessment Assigned Activities Attendant Roma Galeano RN/Mobile Application Architect Advance Directives? No Advance Directives on File No History Provided By Patient,Medical Record Prior Living Arrangements House Household Members spouse Type of transporation used prior to Drives own vehicle admit Willing to Return to Facility? Yes Independent with ADL's Yes Is patient alert and oriented? Yes Caregiver for Another No Barriers to Discharge No Discharge Plan Home Transportation Arrangement Spouse will be bedside and can transport at d/c Referrals Initiated None needed Whiteboard Updated in Patient Room with Yes name and ext. # of Activities Attendant Review Status In Process Next Review Type Continued Stay Review
[2021-05-31] MEDS: DOCUSATE 100 MG CAPSULE PO (09:47)
[2021-05-31] MEDS: FOLIC ACID 1 MG TABLET PO (09:47)
[2021-05-31] MEDS: PANTOPRAZOLE DR 20 MG TABLET 40 MG PO (09:47)
[2021-05-31] MEDS: ASPIRIN EC 81 MG TABLET PO (09:47)
[2021-05-31] MEDS: GUANFACINE 1 MG TABLET PO (09:48)
[2021-05-31] MEDS: FERROUS SULFATE 325 MG TABLET PO (09:48)
[2021-05-31] MEDS: AMLODIPINE 5 MG TABLET 10 MG PO (09:48)
[2021-05-31] MEDS: CHOLECALCIFEROL (VITAMIN D3) 1,000 UNIT TABLET 1000 UNIT PO (09:48)
[2021-05-31 09:49] VITALS: BP 157/70; PULSE 55
[2021-05-31] MEDS: LOSARTAN 50 MG TABLET PO (09:49)
[2021-05-31] MEDS: lisinopriL 10 MG TABLET 20 MG PO (09:49)
[2021-05-31] MEDS: sulfaSALAzine 500 MG TABLET PO ×2 (09:49→14:11)
[2021-05-31] MEDS: ENOXAPARIN 40 MG/0.4 ML SYRINGE SUBCUT (09:50)
[2021-05-31] MEDS: ACETAMINOPHEN 325 MG TABLET 650 MG PO (09:56)
[2021-05-31 10:22] LABS: Troponin I < 0.012 ng/mL (0.01-0.034)
[2021-05-31 12:00] VITALS: BP 147/75; PULSE 70; RESP 18; TEMP 36.6; O2SAT 98
[2021-05-31 15:30] VITALS: BP 159/62; PULSE 64; RESP 17; TEMP 36.3; O2SAT 99
--- NOTE | 2021-05-31 16:28 | P.DS_ITS ---
History of Present Illness History of Present Illness Date Patient Seen: 05/31/21 Time Patient Seen: 16:28 Chief complaint: CHEST PAIN Narrative: Per Dr. Caldwell, The patient is an 85 y/o female with a history of hypertension, anemia, GERD,hy perlipidiemia, recently discharged 05/08 for a GI bleed admitted [facility] for abrupt onset of chest pain.? The patient was lying in bed and had acute onset sharp chest pain. The pain did not radiate, was not associated with shortness of breath, nausea, or diaphoresis. The pain lasted for 35 minutes. It then became sharp like.? The patient was noted to be markedly hypertensive with a blood pressure of 244/107 initially.? Her EKG showed no acute ST Twave changes and her initial troponin was negative.? The patient reports having a stress test 15 years ago for subdiaphragmatic pain. She was told she had GERD.? When she was hospitalized last week she was taken off her twice daily aspirin for her GI bleeding. She was placed on protonix for the GI bleeding. She has had no further bleeding since discharge. The patient underwent CT angio to r/o PE. The CT angio was negative.? Her blood pressure improved following treatment in the ED. Her chest pain has since resolved. The patient is admitted to the hospital for further evaluation of chest pain. Discharge Providers Provider Date of admission: 05/31/21 00:38 Discharge Date: 05/31/21 Primary care physician: Vaibhav Arevalo MD Discharge provider: Jem Galaviz DO Summary Hospital Course Discharge Diagnosis: 1. Chest pain, improved, rule out ACS 2. Hypertensive urgency 3. Recent GI bleed Hospital Course: 85 y/o female with multiple risk factors ( HTN, Hyperlipidemia, Age, recent GI bleed) for cardiac disease admitted to the hospital for evaluation of chest pain. She underwent cardiac stress testing which was deemed low risk. Echocardiogram showed EF of 60-65% with no wall motion abnormalities and no significant valvular dysfunction. Her home dose of amlodipine was increased to 10 mg daily from 5, she also appears to be on both an SANCHEZ-inhibitor and an Arb. I recommend follow-up with her primary care provider for further adjustment of her blood pressure medications, as this will likely need to be adjusted further over time. No other medication changes were recommended at the time of discharge. Exam Vital Signs (past 8 hours): - 05/31/21 09:49 05/31/21 12:00 05/31/21 15:30 Temperature 98 F 97.4 F L Pulse Rate 55 L 70 64 Respiratory Rate 18 17 Blood Pressure 157/70 H 147/75 H 159/62 H Pulse Oximetry 98 99 Oxygen Delivery Method Room Air Oxygen Flow Rate 0 Narrative Exam Narrative: GEN: pleasant female lying in bed in no acute distress,?well nourshed well developed female HEEN:?NC/AT, PERRL, EOMI, Sclera anicteric, oropharynx with moist mucus membranes Resp Other:?Lungs: clear to auscultation Cardio Other:?CV: RRR, no m/r/g. GI Other:?abd: soft/ non tender/ non distended Extrem Other:?no edema Psych Other:?awake, alert, and appropriate. Answers questions as indicated. no confusion, hallucinations, tremors or tics Objective Labs Result Diagrams: 05/31/21 05:43 05/31/21 05:43 Labs: Laboratory Results - last 24 hr 05/30/21 05/30/21 05/30/21 20:45 20:58 20:58 WBC 4.8 RBC 3.65 L Hgb 11.1 L Hct 34.5 L MCV 94.5 MCH 30.5 MCHC 32.2 RDW 14.0 Plt Count 143 L Neut % (Auto) 55.4 Lymph % (Auto) 34.3 [place] % (Auto) 7.4 Eos % (Auto) 2.4 Baso % (Auto) 0.5 Neut # (Auto) 2700 Lymph # (Auto) 1600 [place] # (Auto) 400 Eos # (Auto) 100 Baso # (Auto) 0 D-Dimer Sodium 141 Potassium 3.4 Chloride 106 Carbon Dioxide 28 BUN 16 Creatinine 1.01 Estimated GFR 52.2 L BUN/Creatinine Ratio 15.8 Glucose 118 H Calcium 9.1 Magnesium 1.9 Total Bilirubin 0.3 AST 28 ALT 11 Alkaline Phosphatase 88 Total Creatine Kinase 60 CK-MB (CK-2) TNP CK-MB (CK-2) Rel Index TNP Troponin I < 0.012 NT-Pro-B Natriuret Pep 280 Total Protein 7.5 Albumin 4.2 Globulin 3.3 Albumin/Globulin Ratio 1.3 Triglycerides Cholesterol LDL Cholesterol, Calc HDL Cholesterol Lipase 74 SARS-CoV-2 (PCR) Negative 05/30/21 05/30/21 05/30/21 21:37 22:35 22:35 WBC RBC Hgb Hct MCV MCH MCHC RDW Plt Count Neut % (Auto) Lymph % (Auto) [place] % (Auto) Eos % (Auto) Baso % (Auto) Neut # (Auto) Lymph # (Auto) [place] # (Auto) Eos # (Auto) Baso # (Auto) D-Dimer 433 H Sodium Potassium Chloride Carbon Dioxide BUN Creatinine Estimated GFR BUN/Creatinine Ratio Glucose Calcium Magnesium Total Bilirubin AST ALT Alkaline Phosphatase Total Creatine Kinase CK-MB (CK-2) CK-MB (CK-2) Rel Index Troponin I < 0.012 NT-Pro-B Natriuret Pep Total Protein Albumin Globulin Albumin/Globulin Ratio Triglycerides Cholesterol LDL Cholesterol, Calc HDL Cholesterol Lipase SARS-CoV-2 (PCR) Negative 05/31/21 05/31/21 05/31/21 02:05 05:43 05:43 WBC RBC Hgb Hct MCV MCH MCHC RDW Plt Count Neut % (Auto) Lymph % (Auto) [place] % (Auto) Eos % (Auto) Baso % (Auto) Neut # (Auto) Lymph # (Auto) [place] # (Auto) Eos # (Auto) Baso # (Auto) D-Dimer Sodium 141 Potassium 3.7 Chloride 110 H Carbon Dioxide 26 BUN 13 Creatinine 0.75 Estimated GFR > 60.0 BUN/Creatinine Ratio 17.3 Glucose 108 Calcium 8.6 Magnesium Total Bilirubin AST ALT Alkaline Phosphatase Total Creatine Kinase CK-MB (CK-2) CK-MB (CK-2) Rel Index Troponin I < 0.012 NT-Pro-B Natriuret Pep Total Protein Albumin Globulin Albumin/Globulin Ratio Triglycerides 122 Cholesterol 171 LDL Cholesterol, Calc 86 HDL Cholesterol 61 H Lipase SARS-CoV-2 (PCR) 05/31/21 05/31/21 05:43 09:45 WBC 4.1 L RBC 3.59 L Hgb 11.0 L Hct 34.1 L MCV 95.0 MCH 30.7 MCHC 32.3 RDW 13.7 Plt Count 134 L Neut % (Auto) 57.8 Lymph % (Auto) 31.3 [place] % (Auto) 7.6 Eos % (Auto) 2.6 Baso % (Auto) 0.7 Neut # (Auto) 2400 Lymph # (Auto) 1300 [place] # (Auto) 300 Eos # (Auto) 100 Baso # (Auto) 0 D-Dimer Sodium Potassium Chloride Carbon Dioxide BUN Creatinine Estimated GFR BUN/Creatinine Ratio Glucose Calcium Magnesium Total Bilirubin AST ALT Alkaline Phosphatase Total Creatine Kinase CK-MB (CK-2) CK-MB (CK-2) Rel Index Troponin I < 0.012 NT-Pro-B Natriuret Pep Total Protein Albumin Globulin Albumin/Globulin Ratio Triglycerides Cholesterol LDL Cholesterol, Calc HDL Cholesterol Lipase SARS-CoV-2 (PCR) PFSH Medical History Chronic anemia Essential hypertension GERD (gastroesophageal reflux disease) Hyperlipidemia Hypertension Intracranial aneurysm Kidney stones Surgical History History of lithotripsy History of lumpectomy of right breast Family History Mother Cancer Father Arthritis Social History household members: spouse Smoking Status: Never smoker alcohol intake: never Discharge Plan Discharge Plan Patient Disposition: Home Provider Discharge Comment: You were admitted to the hospital for further evaluation of chest pain. Your stress testing was normal. Please follow up with your PCP in the next 1-2 weeks. Discharge orders & Medications Prescriptions: New amlodipine 10 mg tablet 10 mg PO DAILY 30 Days Qty: 30 RF: 0 Continued lisinopril 10 MG tablet 20 mg PO BID Qty: 0 RF: 0 raloxifene [Evista] 60 MG tablet 60 mg PO QPM Qty: 0 RF: 0 cholecalciferol (vitamin D3) [Vitamin D3] 1,000 unit Tablet 1,000 unit PO DAILY Qty: 0 RF: 0 sulfasalazine 500 mg tablet 500 mg PO TID RF: 0 folic acid 1 mg tablet 1 mg PO DAILY RF: 0 ferrous sulfate 324 mg (65 mg iron) tablet,delayed release (DR/EC) 324 mg PO DAILY RF: 0 losartan 50 mg tablet 50 mg PO BID RF: 0 nitroglycerin 0.4 mg tablet, sublingual 0.4 mg sublingual Q5MIN MDD 3 RF: 0 guanfacine 1 mg tablet RF: 0 pantoprazole 20 mg Tablet,Delayed Release (Dr/Ec) 40 mg PO BID Qty: 60 RF: 0 Discontinued amlodipine 5 mg tablet 5 mg PO DAILY RF: 0 Follow up/Referrals: Vaibhav Arevalo MD [Primary Care Provider] - Diet/Activity/Treatments Diet: Diet as Tolerated Activity: As tolerated Discharge Data Primary Care Provider: Vaibhav Arevalo Attending Provider: Mariama Caldwell VTE Deep Vein Thrombosis/Pulmonary Embolism Present on Admission: Yes
== END 2021-05-31 17:00 | disposition home or self-care (01) ==
LOC: ED 05-31 00:32 → AC 05-31 00:39
PROVIDERS: Admitting Provider Internal Medicine; Emergency Provider Emergency Medicine; Family Provider Family Medicine; PCP Family Medicine; Referring Provider Emergency Medicine; Visit Provider Internal Medicine
DX: I16.0 Hypertensive urgency (principal); R07.9 Chest pain, unspecified; K21.9 Gastro-esophageal reflux disease without esophagitis; E78.5 Hyperlipidemia, unspecified; I10 Essential (primary) hypertension; D64.89 Other specified anemias; Z87.898 Personal history of other specified conditions; Z20.822 Contact with and (suspected) exposure to COVID-19
CPT/HCPCS: 36415; 71045; 71275; 78451; 80048; 80053; 80061; 82550; 83690; 83735; 83880; 84484; 85025; 85379; 87635; 93005; 93010; 93017; 93306; 96360; 96361; 99285; C9803; G0378; A9502; J1650; J2785; Q9967

== ENCOUNTER → 2021-06-02 10:35 | Outpatient (CLI) | payer MEDICARE, OTHER, SELFPAY ==
[2021-05-06 21:21] VITALS: BMI 18.8
[2021-05-31 01:06] VITALS: BMI 17.7
--- NOTE | 2021-06-02 | DI.US.S_ITS ---
PROCEDURE: US ABDOMEN COMPLETE INDICATIONS: DIVERTICULITIS TECHNIQUE: Real-time scanning was performed of the abdominal and retroperitoneal organs, with image documentation. COMPARISON: Reference is made to the CT abdomen dated April 23, 2020. FINDINGS: Liver: Liver is normal in size and homogeneous in echotexture. Gallbladder: Cholecystectomy. Biliary ducts: Intrahepatic bile ducts are non-dilated. Extrahepatic bile duct caliber measures 5.9 mm. Normal is 6-7 mm or less in diameter, or 10 mm or less post-cholecystectomy. Pancreas: Visualized portions of the pancreas are sonographically normal. Spleen: Spleen is normal in size and homogeneous in echotexture. A hypoechoic lesion is seen in the splenic fossa, measuring up to 1.6 cm, which has a thin septation. Kidneys: Kidneys are normal in size and echotexture. Right kidney measures 11.4 cm long; left kidney measures 9.8 cm long. No hydronephrosis. No solid masses. A hypoechoic lesion is seen in the right upper pole, measuring up to 11.5 mm, compatible with a cyst. A hypoechoic lesion is seen in the left lateral kidney, measuring up to 10.9 mm, most consistent with a cyst. Punctate renal echogenic foci, which may reflect nephrolithiasis versus concretions. Aorta: Visualized aorta is normal in caliber at less than 3 cm. Iliacs: Proximal common iliac arteries are normal in caliber at less than 2.5 cm. IVC: Intrahepatic inferior vena cava is patent. Miscellaneous: No free abdominal fluid. IMPRESSION: 1. Hypoechoic lesion with thin septation in the spleen, which may reflect a mildly complex cyst. A pancreatic tail lesion cannot be excluded. Consider magnetic resonance imaging or endoscopic ultrasound for further evaluation as clinically warranted. 2. Bilateral renal hypoechoic lesions are seen, most consistent with simple cysts. Dictated by: Josse Sr M.D. on 06/02/2021 at 11:20 Approved by: Josse Sr M.D. on 06/02/2021 at 11:30
== END ==
PROVIDERS: Family Provider Family Medicine; PCP Family Medicine; Referring Provider Family Medicine; Visit Provider Family Medicine
DX: K57.32 Diverticulitis of large intestine without perforation or abscess without bleeding (principal); D73.89 Other diseases of spleen; N28.9 Disorder of kidney and ureter, unspecified
CPT/HCPCS: 76700

== ENCOUNTER → 2021-06-09 13:08 | Outpatient (CLI) | payer MEDICARE, OTHER, SELFPAY ==
[2021-05-31 01:06] VITALS: BMI 17.7
--- NOTE | 2021-06-09 | DI.CT.S_ITS ---
PROCEDURE: CT CHEST ABDOMEN WO CON INDICATIONS: disorders of kidney and ureter,CHEST PAIN TECHNIQUE: After the administration of oral contrast, 5 mm thick sections acquired from the pulmonary apices to the iliac crests. 5 mm thick coronal and sagittal reformats acquired, with additional 7 mm coronal MIP reformats through the lungs. For radiation dose reduction, the following was used: automated exposure control, adjustment of mA and/or kV according to patient size. COMPARISON: [facility], US, US ABDOMEN COMPLETE, 06/02/2021, 10:46. [facility], CT, CT ANGIO CHEST PE PROTOCOL, 05/30/2021, 23:54. [facility], CT, CT ABDOMEN PELVIS W CON, 04/23/2020, 15:30. FINDINGS: Image quality: Excellent. CHEST: Lungs and pleura: Clustered 2-3 mm nodular densities are seen in the right lung base, most likely sequelae of infection or aspiration. No pleural effusions or pneumothorax. Central and peripheral airways are patent and normal in caliber. Mediastinum: Heart size is normal. Moderate coronary artery calcification. No pericardial effusion. No mediastinal adenopathy by size criteria. Thoracic aorta and central pulmonary arteries are normal in size. Esophagus is normal in caliber. Small hiatal hernia. Chest wall: No axillary or supraclavicular adenopathy by size criteria. Thyroid gland is normal. ABDOMEN: Solid organs: Liver is normal in size. Gallbladder is surgically absent. Pancreas is normal in contours. Spleen is normal in size. No adrenal nodules. Both kidneys are normal in size. There is a 6 mm stone in the inferior pole of the left kidney. No hydronephrosis. Small cortical cyst in kidneys seen on the comparison ultrasound are not well seen on the noncontrast enhanced CT. Peritoneum and bowel: Small and large bowel loops are normal in caliber and wall thickness. Diverticulosis without diverticulitis. No free fluid or air. Nodes and vessels: No retroperitoneal or mesenteric adenopathy by size criteria. Aorta and inferior vena cava are normal in caliber. Moderate atherosclerotic calcifications. Miscellaneous: There is a 1.2 cm hyperdense nodule adjacent to the umbilicus, unchanged, probably a hyperdense cyst. A surgical clip seen posterior to the umbilicus. Bones: Degenerative changes in lumbar spine. There is ostial PE knee a. Mild chronic compression fractures are seen in upper thoracic spine. IMPRESSION: 1. A 6 mm nonobstructive stone in the inferior pole of left kidney. No hydronephrosis. 2. Small cortical cysts seen on the comparison ultrasound are not well visualized on this noncontrast enhanced CT. 3. Small cluster 2-3 mmnodular densities in the right lower lobe, most likely infectious or inflammatory etiology. 4. Coronary artery calcifications consistent with atherosclerosis. 5. Diverticulosis without diverticulitis. Dictated by: Mariano Cohen M.D. on 06/09/2021 at 15:36 Approved by: Mariano Cohen M.D. on 06/10/2021 at 9:34
== END ==
PROVIDERS: Family Provider Family Medicine; PCP Family Medicine; Referring Provider Family Medicine; Visit Provider Family Medicine
DX: R07.9 Chest pain, unspecified (principal); N28.89 Other specified disorders of kidney and ureter; N20.0 Calculus of kidney; I25.10 Atherosclerotic heart disease of native coronary artery without angina pectoris; K57.90 Diverticulosis of intestine, part unspecified, without perforation or abscess without bleeding; Z90.49 Acquired absence of other specified parts of digestive tract
CPT/HCPCS: 71250; 74150

== ENCOUNTER → 2021-12-14 09:23 | Outpatient (CLI) | payer MEDICARE, OTHER, SELFPAY ==
--- NOTE | 2021-12-14 | DI.RAD.S_ITS ---
PROCEDURE: XR KNEE LT 3V INDICATIONS: LEFT KNEE PAIN TECHNIQUE: 3 views of the knee were acquired. COMPARISON: [facility], , XR KNEE LT 3V, 04/13/2018, 12:45. FINDINGS: Bones: No fractures or dislocations. No suspicious bony lesions. Small superior patellar enthesophyte. Mild tricompartment osteophytosis. Prominent osteophytosis extending from the lateral aspect of the tibial spine. Mild to moderate narrowing of the patellofemoral joint space. Soft tissues: Small joint effusion. No suspicious soft tissue calcifications. IMPRESSION: 1. No acute osseous abnormality. 2. Small joint effusion. Dictated by: Josse Sr M.D. on 12/14/2021 at 9:58 Approved by: Josse Sr M.D. on 12/14/2021 at 10:00
== END ==
PROVIDERS: Family Provider Family Medicine; PCP Family Medicine; Referring Provider Family Medicine; Visit Provider Family Medicine
DX: M25.562 Pain in left knee (principal); M25.462 Effusion, left knee
CPT/HCPCS: 73562

== ENCOUNTER → 2022-11-15 12:34 | Outpatient (CLI) | payer MEDICARE, OTHER, SELFPAY ==
--- NOTE | 2022-11-15 12:35 | DI.CT.S_ITS ---
PROCEDURE: CT HEAD/BRAIN WO CON INDICATIONS: Transient cerebral ischemic attack, syncope and collapse TECHNIQUE: Noncontrast 4.5 mm thick angled axial sections acquired from the foramen magnum to the vertex, with coronal and sagittal reformats. For radiation dose reduction, the following was used: automated exposure control, adjustment of mA and/or kV according to patient size. COMPARISON: [facility], MR, ANGIO HEAD WITHOUT CONTRAST, 10/17/2016, 16:25. [facility], MR, BRAIN W&WO CONTRAST, 10/17/2016, 16:44. [facility], CT, CT HEAD WITHOUT CONTRAST, 11/28/2018, 16:39. [facility], CT, CT CHEST WO CON, 11/15/2022, 12:40. FINDINGS: Image quality: There is artifact associated with the metallic hardware. CSF spaces: Basal cisterns are patent. No extra-axial fluid collections. The ventricles are symmetric in size and shape. Brain: Aneurysm coils are again seen involving the region of the anterior communicating artery. There is again seen a calcified extra-axial mass along the medial anterior left frontal lobe, measuring 2.1 cm in greatest axial dimension and measuring 3 cm craniocaudal. No intracranial bleeds. There is cerebral volume loss for age, with resultant ventricular and sulcal prominence. There are periventricular and deep white matter chronic small vessel ischemic changes. There is intracranial internal carotid artery atherosclerosis. Symmetric calcification can be seen involving the basal ganglia, which is considered to be normal for age. Skull and face: Calvarium and visualized facial bones appear intact, without suspicious lesions. Sinuses: Visualized sinuses and mastoids are clear. IMPRESSION: Calcified mass along the medial anterior left frontal lobe, which is not significantly changed compared to the prior CT and attributed to a meningioma. 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 Dictated by: Juan Carlos Choi M.D. on 11/15/2022 at 12:18 Approved by: Juan Carlos Choi M.D. on 11/15/2022 at 12:22
--- NOTE | 2022-11-15 12:39 | DI.CT.S_ITS ---
PROCEDURE: CT CHEST WO CON INDICATIONS: Transient cerebral ischemic attack, syncope and collapse TECHNIQUE: Noncontrast 5 mm thick sections acquired from the pulmonary apices to the posterior costophrenic angles. 1 mm lung window, 5 mm thick coronal and sagittal and 7 mm axial MIP reformats were then acquired. For radiation dose reduction, the following was used: automated exposure control, adjustment of mA and/or kV according to patient size. COMPARISON: [facility], CT, CT ABDOMEN PELVIS W CON, 04/23/2020, 15:30. [facility], CT, ABDOMEN/PELVIS WITH CONTRAST, 01/02/2015, 12:05. [facility], CT, CT CHEST ABDOMEN WO CON, 06/09/2021, 13:22. FINDINGS: Lungs and pleura: No consolidation or pleural effusion or pneumothorax Mediastinum: No pericardial effusion. Esophagus is normal in caliber. Multivessel coronary artery calcifications and/or stents. Bones and chest wall: Multilevel degenerative change of the visualized spine. Changes of DISH present. No axillary or supraclavicular adenopathy by size criteria. Abdomen: Approximately 1.4 cm cystic structure at the pancreatic tail (3/54) likely not significantly changed since at least 2019, not well evaluated on this noncontrast exam. IMPRESSION: No consolidation or pleural effusion. Nonspecific small cystic structure at the pancreatic tail, could represent a side branch IPMN but other cystic neoplasms are not excluded. It is not well visualized/evaluated on this noncontrast CT of the chest. If clinically indicated/compatible with goals of care in a patient of this age, further evaluation with pancreatic protocol MRI or CT could be obtained. Dictated by: Eladio Matthew M.D. on 11/16/2022 at 10:37 Approved by: Eladio Matthew M.D. on 11/16/2022 at 10:57
== END ==
PROVIDERS: Family Provider Family Medicine; PCP Family Medicine; Referring Provider Family Medicine; Visit Provider Family Medicine
DX: G93.9 Disorder of brain, unspecified (principal); G45.9 Transient cerebral ischemic attack, unspecified; R55 Syncope and collapse
CPT/HCPCS: 70450; 71250

== ENCOUNTER → 2022-11-30 09:12 | Outpatient (CLI) | payer MEDICARE, OTHER, SELFPAY ==
--- NOTE | 2022-11-30 | DI.MRI.S_ITS ---
PROCEDURE: MR ABDOMEN WO/W CON INDICATIONS: Cyst of pancreas TECHNIQUE: Coronal HASTE, axial 2D FLASH in- and [id number]; axial breath-hold T2 FSE with fat saturation from the hepatic dome to the iliac crests. Oblique coronal thin-slice and radial thick slab HASTE through the biliary system. Dynamic axial VIBE during administration of contrast. Post-contrast coronal VIBE or 2D FLASH with fat saturation from the hepatic dome to the iliac crests. Optional diffusion weighted imaging and ADC may be performed. COMPARISON: None. FINDINGS: Image quality: Excellent. Pancreas and biliary system: Multiple T2 hyperintense cystic lesions with throughout the pancreatic parenchyma, largest measuring 1.6 cm in the tail (series 10, image 1). No pancreatic ductal dilation. No associated nodularity. Thin internal septation within the largest cystic lesion, which does not have connection to the pancreatic duct. Solid organs: Gallbladder is absent. Kidneys are small, with numerous tiny cysts. Spleen is within normal limits. No adrenal nodules. Nodes and vessels: No retroperitoneal or mesenteric adenopathy by size criteria. Aorta and inferior vena cava are normal in size. Bowel and peritoneum: Unenhanced bowel loops are normal in caliber throughout. No free fluid. Colonic diverticulosis without evidence of diverticulitis. Lung bases: No basal pleural effusions. Heart size is normal. Bones and soft tissues: No ventral hernias. Bone marrow is normal in overall signal. IMPRESSION: Pancreatic cystic lesions, largest of which measures 1.6 cm and contains a thin internal septation. No associated nodularity. This specific cyst does not connect to the pancreatic duct, while 2 subcentimeter cysts due. Given size and age, consider follow-up in 2 years with MRI/MRCP to evaluate for any changes. Medical renal disease. Dictated by: Jovany Park M.D. on 11/30/2022 at 11:42 Approved by: Jovany Park M.D. on 11/30/2022 at 11:52
== END ==
PROVIDERS: Family Provider Family Medicine; PCP Family Medicine; Referring Provider Family Medicine; Visit Provider Family Medicine
DX: K86.2 Cyst of pancreas (principal); N28.9 Disorder of kidney and ureter, unspecified
CPT/HCPCS: 74183; A9579

== ENCOUNTER → 2023-01-31 14:04 | Outpatient (CLI) | payer MEDICARE, OTHER, SELFPAY ==
--- NOTE | 2023-01-31 | DI.US.S_ITS ---
PROCEDURE: US PERIPH VENOUS LOW EXTREM RT INDICATIONS: Pain in right lower leg TECHNIQUE: Real-time imaging, as well as color and pulse Doppler interrogation, were performed of the lower extremity deep veins from the inguinal ligament to the popliteal fossa. COMPARISON: None. FINDINGS: The common femoral, femoral and popliteal veins are normally compressible, and free of intraluminal thrombus. Color and pulse Doppler demonstrate normal phasic intraluminal flow. There is normal augmentation response to distal compression maneuver. IMPRESSION: No evidence of deep venous thrombosis, right lower extremity Approved by: Long Winkler M.D. on 01/31/2023 at 18:43
== END ==
PROVIDERS: Family Provider Family Medicine; PCP Family Medicine; Referring Provider Family Medicine; Visit Provider Family Medicine
DX: M79.661 Pain in right lower leg (principal)
CPT/HCPCS: 93971

== ENCOUNTER → 2023-03-30 14:32 | Outpatient (CLI) | payer MEDICARE, OTHER, SELFPAY ==
--- NOTE | 2023-03-30 | DI.MRI.S_ITS ---
PROCEDURE: MR AB PANCREATIC/MRCP PROTOCOL INDICATIONS: Cyst of pancreas TECHNIQUE: Coronal HASTE through the abdomen, axial 2-D FLASH in- and [id number], and breath-hold T2 FSE with fat saturation through the biliary system and pancreas. Oblique coronal and axial thin-slice HASTE, radial thick-slab HASTE centered on the extrahepatic bile ducts. Intravenous secretin: Not requested. COMPARISON: [facility], MR, MR ABDOMEN WO/W CON, 11/30/2022, 9:50. FINDINGS: Image quality: Excellent. Liver: No solid mass. Gallbladder and biliary tree: Gallbladder is absent. No intrahepatic biliary dilation. Spleen: Normal size. Pancreas: No ductal dilation. Stable pancreatic cystic lesions, largest measuring 1.6 centimeters in the tail (series 4, image 15). This cystic lesion contains a thin internal septation. There is no associated ductal dilation. Adrenal glands: No adrenal nodules. Kidneys: No hydronephrosis. No solid mass. No complex renal cysts which requires follow-up. Polycystic kidneys. Nodes and vessels: No retroperitoneal or mesenteric adenopathy by size criteria. Aorta and inferior vena cava are normal in size. Bowel and peritoneum: Unenhanced bowel loops are normal in caliber. No free fluid. Colonic diverticulosis without evidence of diverticulitis. Lung bases: No basal pleural effusions. Heart size is normal. Bones and soft tissues: No ventral hernias. Bone marrow is of normal overall signal. IMPRESSION: Stable pancreatic cystic lesions, largest of which measures 1.6 centimeters in the pancreatic tail, containing a thin internal septation. Given patient age, further follow-up can be optional in 2 years. Dictated by: Jovany Park M.D. on 03/30/2023 at 16:25 Approved by: Jovany Park M.D. on 03/30/2023 at 16:31
== END ==
PROVIDERS: Family Provider Family Medicine; PCP Family Medicine; Referring Provider Family Medicine; Visit Provider Family Medicine
DX: K86.2 Cyst of pancreas (principal); Z90.49 Acquired absence of other specified parts of digestive tract
CPT/HCPCS: 74183

== ENCOUNTER 2023-04-29 11:36 | Emergency (ER) | payer MEDICARE, OTHER, SELFPAY ==
[2023-04-29 11:37] VITALS: BP 172/72; PULSE 88; RESP 14; TEMP 36.3; O2SAT 100; BMI 17.1
--- NOTE | 2023-04-29 11:42 | DI.RAD.S_ITS ---
PROCEDURE: XR CHEST 1V INDICATIONS: chest pain TECHNIQUE: One view of the chest was acquired. COMPARISON: [facility], CR, XR CHEST 1V, 11/28/2018, 11:28. [facility], CR, XR CHEST 1V, 05/30/2021, 20:40. FINDINGS: Surgical changes and devices: Cervical spine fixation hardware is partially seen Lungs and pleura: On this semiupright portable chest examination, no large pneumothorax or large pleural effusions are seen. No focal infiltrates are seen. The lungs are hyperexpanded. Mediastinum: The cardiac contours are within normal limits. The aorta demonstrates calcification and tortuosity. Bones and chest wall: Age-appropriate bony degenerative changes are seen. No suspicious bony lesions. Overlying soft tissues appear unremarkable. IMPRESSION: Hyperexpanded lungs, without an acute cardiopulmonary process identified. Postoperative and degenerative changes are seen. Dictated by: Juan Carlos Choi M.D. on 04/29/2023 at 11:06 Approved by: Juan Carlos Choi M.D. on 04/29/2023 at 11:07
[2023-04-29 11:43] VITALS: PULSE 77; O2SAT 100
[2023-04-29 11:48] VITALS: BP 131/60; PULSE 78; O2SAT 100
[2023-04-29 12:00] VITALS: BP 139/63; PULSE 77; O2SAT 100
[2023-04-29] MEDS: ASPIRIN 81 MG CHEW TAB 324 MG PO (12:07)
[2023-04-29 12:11] LABS: Add Manual Diff / Slide Review NO; Basophils Absolute Auto 0 /uL (0-100); Basophils Percent Auto 0.6 % (0-2); Eosinophils Absolute Auto 0 /uL (0-450); Eosinophils Percent Auto 0.6 % (2-4); Hematocrit 39.1 % (36-46); Hemoglobin 13.1 g/dL (12.0-16.0); Lymphocytes Absolute Auto 900 /uL (1100-4500); Lymphocytes Percent Auto 19.8 % (25-40); Mean Corpuscular HGB Conc 33.5 % (30-36); Mean Corpuscular Hemoglobin 31.6 PG (26-34); Mean Corpuscular Volume 94.2 fL (80-100); Monocytes Absolute Auto 200 /uL (0-900); Monocytes Percent Auto 4.3 % (3-14); Neutrophils Absolute Auto 3500 /uL (1500-7000); Neutrophils Percent Auto 74.7 % (50-75); Platelet Count 170 X10^3/uL (150-400); Red Blood Cell Count 4.15 X10^6/uL (4.0-5.2); Red Cell Distribution Width 13.8 % (11.6-14.8); White Blood Cell Count 4.6 X10^3/uL (4.5-11.0)
--- NOTE | 2023-04-29 12:14 | ED.ARRPALP ---
HPI - Arrhythmia/Palpitations General Chief Complaint: Arrhythmia/Palpitations Stated Complaint: heart palpitations, back pain, headache, sweating Time Seen by Provider: 04/29/23 11:47 Source: patient and family Mode of arrival: Ambulatory History of Present Illness HPI narrative: 87-year-old female who is here for evaluation of what she describes as palpitations, being lightheaded, sweating and headache. Her symptoms started yesterday and have been occasional since then. At the time of my evaluation she was not having symptoms. Her was at bedside states this is not new symptoms for her. He states that she has had issues with palpitations in the past and she gets very anxious when the symptoms happened. The patient expressed agreement with this. She denies any nausea or vomiting. Related Data Home Medications Medication Instructions Recorded Confirmed cholecalciferol (vitamin D3) 25 1,000 unit PO DAILY ##0 05/06/11 05/31/21 mcg (1,000 unit) tablet (Vitamin D3) lisinopril 10 mg tablet 20 mg PO BID ##0 05/06/11 05/31/21 raloxifene 60 mg tablet (Evista) 60 mg PO QPM ##0 05/06/11 05/31/21 ferrous sulfate 324 mg (65 mg 324 mg PO DAILY 11/28/18 05/31/21 iron) tablet,delayed release folic acid 1 mg tablet 1 mg PO DAILY 11/28/18 05/31/21 sulfasalazine 500 mg tablet 500 mg PO TID 11/28/18 05/31/21 guanfacine 1 mg tablet mg 05/06/21 losartan 50 mg tablet 50 mg PO BID 05/06/21 05/31/21 nitroglycerin 0.4 mg sublingual 0.4 mg sublingual Q5MIN 05/06/21 05/31/21 tablet Previous Rx's Medication Instructions Recorded pantoprazole 20 mg tablet,delayed 40 mg PO BID #60 tabs 05/08/21 release Allergies Allergy/AdvReac Type Severity Reaction Status Date / Time shellfish derived Allergy Hives Verified 04/29/23 11:48 ibuprofen [From MOTRIN] AdvReac Mild UPSET Verified 04/29/23 11:48 STOMACH Review of Systems Constitutional Constitutional: Reports system reviewed and no additional complaints, except as documented Cardiovascular Cardiovascular: Reports system reviewed and no additional complaints, except as documented Gastrointestinal Gastrointestinal: Reports system reviewed and no additional complaints, except as documented Genitourinary Genitourinary: Reports system reviewed and no additional complaints, except as documented Musculoskeletal Musculoskeletal: Reports system reviewed and no additional complaints, except as documented Integumentary/Breasts Skin/Breast: Reports system reviewed and no additional complaints, except as documented Hematologic/Lymphatic On Anticoagulants: No Patient History Medical History Chronic anemia Essential hypertension GERD (gastroesophageal reflux disease) Hyperlipidemia Hypertension Intracranial aneurysm Kidney stones Surgical History History of lithotripsy History of lumpectomy of right breast Family History Mother Cancer Father Arthritis Social History household members: spouse Smoking Status: Never smoker alcohol intake: never Smoking Status: Never smoker alcohol intake frequency: holidays/special occasions only Substance Use Type: does not use Exam Initial Vital Signs Initial Vital Signs: Vital Signs Temperature 97.4 F L 04/29/23 11:37 Pulse Rate 88 04/29/23 11:37 Respiratory Rate 14 04/29/23 11:37 Blood Pressure 172/72 H 04/29/23 11:37 Pulse Oximetry 100 04/29/23 11:37 Oxygen Delivery Method Room Air 04/29/23 11:37 [facility] Head: normal to inspection and normocephalic Resp Effort & Inspection: normal respiratory effort Auscultation: clear to auscultation bilaterally Cardio Rate: regular rate Rhythm: regular rhythm GI Inspection: normal to inspection Skin General: no rashes or lesions noted Neuro General: patient alert, patient awake and moves all extremities Extrem General: normal to inspection and capillary refill normal Course Orders Ordered: ED Orders 04/29/23 11:42 XR chest 1V Stat EKG-12 Lead Stat 04/29/23 12:05 Complete Blood Count AUTO DIFF Stat Comprehensive Metabolic Panel Stat Lipase Stat Magnesium Stat PTT Partial Thromboplastin Dandre Stat Prothrombin Time INR Stat Troponin & CK Cardiac Panel Stat Discontinued Medications Aspirin (Aspirin 81 Mg Chew Tab) 324 mg PO NOW ONE Stop: 04/29/23 11:43 Last Admin: 04/29/23 12:07 Dose: 324 mg Documented By: MPO Vital Signs Vital signs: Vital Signs - 8 hr 04/29/23 11:37 04/29/23 11:43 04/29/23 11:48 Temperature 97.4 F L Pulse Rate 88 77 Respiratory Rate 14 Blood Pressure 172/72 H 131/60 Pulse Oximetry 100 100 Oxygen Delivery Method Room Air 04/29/23 11:48 04/29/23 12:00 04/29/23 12:00 Temperature Pulse Rate 78 77 Respiratory Rate Blood Pressure 139/63 Pulse Oximetry 100 100 Oxygen Delivery Method MDM - Arrhythmia/Palpitations Lab Data Attestation: I reviewed the patient's lab results. 04/29/23 12:05 04/29/23 12:05 Labs: Lab Results 04/29/23 04/29/23 04/29/23 Range/Units 12:05 12:05 12:05 WBC 4.6 (4.5-11.0) X10^3/uL RBC 4.15 (4.0-5.2) X10^6/uL Hgb 13.1 (12.0-16.0) g/dL Hct 39.1 (36-46) % MCV 94.2 (80-100) fL MCH 31.6 (26-34) PG MCHC 33.5 (30-36) % RDW 13.8 (11.6-14.8) % Plt Count 170 (150-400) X10^3/uL Neut % (Auto) 74.7 (50-75) % Lymph % (Auto) 19.8 L (25-40) % Dent % (Auto) 4.3 (3-14) % Eos % (Auto) 0.6 L (2-4) % Baso % (Auto) 0.6 (0-2) % Neut # (Auto) 3500 (7218-8107) /uL Lymph # (Auto) 900 L (7599-3889) /uL Dent # (Auto) 200 (0-900) /uL Eos # (Auto) 0 (0-450) /uL Baso # (Auto) 0 (0-100) /uL PT 10.0 L (10.1-12.7) SECONDS INR 0.9 (0.9-1.3) APTT 30 (26-36) SECONDS Sodium 140 (137-145) mmol/L Potassium 4.2 (3.4-5.1) mmol/L Chloride 105 (98-107) mmol/L Carbon Dioxide 19 L (22-32) mmol/L BUN 40 H (7-17) mg/dL Creatinine 1.84 H (0.52-1.04) mg/dL Estimated GFR 26 L (>60) mL/min BUN/Creatinine Ratio 21.7 (6-22) Glucose 98 (80-110) mg/dL Calcium 10.4 H (8.4-10.2) mg/dL Magnesium 2.5 H (1.6-2.3) mg/dL Total Bilirubin 0.6 (0.2-1.3) mg/dL AST 36 (14-36) IU/L ALT 18 (<35) IU/L Alkaline Phosphatase 76 (38-126) U/L Total Creatine Kinase 83 (30-135) U/L Troponin I 0.017 (0.01-0.034) ng/mL Total Protein 9.1 H (6.3-8.2) g/dL Albumin 4.8 (3.5-5.0) g/dL Globulin 4.3 H (1.7-4.1) g/dL Albumin/Globulin Ratio 1.1 (1.0-2.8) Lipase 143 (23-300) U/L Imaging Data Chest x-ray: Radiologist's Impresson: PROCEDURE:? XR CHEST 1V ? INDICATIONS:? chest pain ? TECHNIQUE:? One view of the chest was acquired.? ? COMPARISON:? [facility], , XR CHEST 1V, 11/28/2018, 11:28.? [facility], , XR CHEST 1V, 05/30/2021, 20:40. ? FINDINGS:? ? Surgical changes and devices:? Cervical spine fixation hardware is partially seen ? Lungs and pleura:? On this semiupright portable chest examination, no large pneumothorax or large pleural effusions are seen.? No focal infiltrates are seen.? The lungs are hyperexpanded. ? Mediastinum:? The cardiac contours are within normal limits. The aorta demonstrates calcification and tortuosity. ? Bones and chest wall:? Age-appropriate bony degenerative changes are seen.? No suspicious bony lesions.? Overlying soft tissues appear unremarkable.? ? ? IMPRESSION:? ? Hyperexpanded lungs, without an acute cardiopulmonary process identified. ? Postoperative and degenerative changes are seen. ECG Data Attestation: I personally reviewed and interpreted this ECG as follows: Interpretation: Sinus rhythm Ventricular rate is 76 Normal axis Normal QRS Normal QTC No ST T wave changes MDM Narrative Medical decision making narrative: Patient was not having symptoms at the time of my evaluation. Troponins negative. EKG is sinus rhythm. Patient's states that this happens to her quite frequently specifically when she feels like her heart is beating. We did discuss the possibility of a transient arrhythmia. Advised that they contact their primary doctor on Monday to discuss the indications for a Holter monitor. They were given return precautions. They expressed understanding and agreement. Discharge Plan Departure Patient Disposition: Home Clinical Impression: Palpitations Instructions: DI for Arrhythmias Activity Restrictions/Additional Instructions: I recommend that you contact your primary doctor's office on Monday for follow-up to discuss the indications for a Holter monitor. Continue to take all of your medications as directed. Return to the emergency department for new or worsening symptoms. Prescriptions: No Action lisinopril 10 MG tablet 20 mg PO BID Qty: 0 Patient Comments: patient states one tablet daily raloxifene [Evista] 60 MG tablet 60 mg PO QPM Qty: 0 cholecalciferol (vitamin D3) [Vitamin D3] 1,000 unit Tablet 1,000 unit PO DAILY Qty: 0 sulfasalazine 500 mg tablet 500 mg PO TID folic acid 1 mg tablet 1 mg PO DAILY ferrous sulfate 324 mg (65 mg iron) tablet,delayed release (DR/EC) 324 mg PO DAILY losartan 50 mg tablet 50 mg PO BID nitroglycerin 0.4 mg tablet, sublingual 0.4 mg sublingual Q5MIN MDD 3 Patient Comments: Taken in ED guanfacine 1 mg tablet pantoprazole 20 mg Tablet,Delayed Release (Dr/Ec) 40 mg PO BID Qty: 60 0RF Referrals: Vaibhav Arevalo MD [Primary Care Provider] - Stand Alone Forms: Patient Portal/API
[2023-04-29 12:18] LABS: INR 0.9 (0.9-1.3)
[2023-04-29 12:21] LABS: PTT Partial Thromboplastin Tim 30 SECONDS (26-36)
[2023-04-29 12:22] LABS: Alanine Aminotransferase 18 IU/L (<35); Albumin 4.8 g/dL (3.5-5.0); Albumin Globulin Ratio 1.1 (1.0-2.8); Alkaline Phosphatase 76 U/L (38-126); Aspartate Aminotransferase 36 IU/L (14-36); BUN Creatinine Ratio 21.7 (6-22); Bilirubin Total 0.6 mg/dL (0.2-1.3); Blood Urea Nitrogen 40 mg/dL (7-17); Calcium 10.4 mg/dL (8.4-10.2); Carbon Dioxide 19 mmol/L (22-32); Chloride 105 mmol/L (98-107); Creatine Kinase 83 U/L (30-135); Estimated Glomerular Filt Rate 26 mL/min (>60); Globulin 4.3 g/dL (1.7-4.1); Glucose 98 mg/dL (80-110); HEMOLYSIS < 15 (0-50); Lipase 143 U/L (23-300); Magnesium 2.5 mg/dL (1.6-2.3); Potassium 4.2 mmol/L (3.4-5.1); Sodium 140 mmol/L (137-145); Total Protein 9.1 g/dL (6.3-8.2)
[2023-04-29 12:33] LABS: Troponin I 0.017 ng/mL (0.01-0.034)
[2023-04-29 13:29] VITALS: BP 145/68; PULSE 68; RESP 22; O2SAT 98
== END 2023-04-29 13:15 | disposition home or self-care (01) ==
PROVIDERS: Emergency Provider Emergency Medicine; Family Provider Family Medicine; PCP Family Medicine
DX: R00.2 Palpitations (principal); R07.9 Chest pain, unspecified; Z79.899 Other long term (current) drug therapy
CPT/HCPCS: 36415; 71045; 80053; 82550; 83690; 83735; 84484; 85025; 85610; 85730; 93005; 93010; 99284

== ENCOUNTER → 2023-05-15 13:11 | Outpatient (CLI) | payer MEDICARE, OTHER, SELFPAY | PROVIDERS: Family Provider Family Medicine; PCP Family Medicine; Referring Provider Family Medicine; Visit Provider Family Medicine | DX: R00.2 Palpitations (principal) | CPT/HCPCS: 93246 ==

== ENCOUNTER 2023-06-27 11:18 | Emergency (ER) | payer MEDICARE, OTHER, SELFPAY ==
[2023-06-27 11:22] VITALS: BP 172/76; PULSE 78; RESP 16; TEMP 37.1; O2SAT 99; BMI 16.0
--- NOTE | 2023-06-27 11:43 | ED.NECK ---
HPI - Neck Pain/Injury <Shayy Osullivan PA-C - Last Filed: 06/27/23 12:44> General Chief Complaint: Neck Pain/Injury Stated Complaint: neck pain Time Seen by Provider: 06/27/23 11:31 Mode of arrival: Ambulatory History of Present Illness HPI Narrative: 87-year-old female with past medical history GERD, anemia, hyperlipidemia, hypertension presents to the ED with 2 days of right-sided neck pain. Patient states that her pain spontaneously started upon awakening 2 days ago. Patient describes the pain to be on the right side of her neck, pain aggravated with head movement. Pain does not radiate. Patient denies trauma. Patient denies fever, chills, chest pain, shortness of breath, nausea, vomiting, lightheadedness, dizziness, syncope. Related Data Home Medications Medication Instructions Recorded Confirmed cholecalciferol (vitamin D3) 25 1,000 unit PO DAILY ##0 05/06/11 05/31/21 mcg (1,000 unit) tablet (Vitamin D3) lisinopril 10 mg tablet 20 mg PO BID ##0 05/06/11 05/31/21 raloxifene 60 mg tablet (Evista) 60 mg PO QPM ##0 05/06/11 05/31/21 ferrous sulfate 324 mg (65 mg 324 mg PO DAILY 11/28/18 05/31/21 iron) tablet,delayed release folic acid 1 mg tablet 1 mg PO DAILY 11/28/18 05/31/21 sulfasalazine 500 mg tablet 500 mg PO TID 11/28/18 05/31/21 guanfacine 1 mg tablet mg 05/06/21 losartan 50 mg tablet 50 mg PO BID 05/06/21 05/31/21 nitroglycerin 0.4 mg sublingual 0.4 mg sublingual Q5MIN 05/06/21 05/31/21 tablet Previous Rx's Medication Instructions Recorded pantoprazole 20 mg tablet,delayed 40 mg (2 x 20 mg) PO BID #60 tabs 05/08/21 release cyclobenzaprine 10 mg tablet 10 mg PO TID PRN muscle spasm 5 06/27/23 days #15 tabs Allergies Allergy/AdvReac Type Severity Reaction Status Date / Time shellfish derived Allergy Hives Verified 04/29/23 11:48 ibuprofen [From MOTRIN] AdvReac Mild UPSET Verified 04/29/23 11:48 STOMACH Review of Systems <Shayy Osullivan PA-C - Last Filed: 06/27/23 12:44> Constitutional Constitutional: Denies chills, Denies fatigue, Denies fever(s), Denies frequent falls, Denies lethargy and Denies weakness Eyes Eyes: Denies change in vision, Denies eye discharge, Denies irritation and Denies loss of vision ENT Ears, Nose, Mouth, and Throat: Denies change in voice, Denies dizziness, Reports neck pain, Denies sore throat and Denies throat swelling Cardiovascular Cardiovascular: Denies chest pain, Denies irregular heart rhythm, Denies lightheadedness, Denies palpitations, Denies dyspnea, Denies dyspnea on exertion and Denies orthopnea Respiratory Respiratory: Denies cough, Denies dyspnea, Denies dyspnea on exertion and Denies wheezing Gastrointestinal Gastrointestinal: Denies abdominal pain, Denies change in bowel habits, Denies diarrhea, Denies nausea and Denies vomiting Musculoskeletal Musculoskeletal: Reports neck pain and Denies numbness Integumentary/Breasts Skin/Breast: Denies pruritus, Denies erythema, Denies rash and Denies wounds Neurologic Neurologic: Denies behavioral changes, Denies confusion, Denies dizziness, Denies frequent falls, Denies loss of vision, Denies numbness and Denies weakness Psychiatric Psychiatric: Denies anxiety, Denies behavioral changes, Denies confusion, Denies depression, Denies homicidal ideation and Denies suicidal ideation Endocrine Endocrine: Denies fatigue, Denies flushing and Denies palpitations Hematologic/Lymphatic Hematologic/Lymphatic: Denies easy bruising Allergic/Immunologic Allergic/Immunologic: Denies urticaria, Denies throat swelling and Denies wheezing Patient History <Shayy Osullivan PA-C - Last Filed: 06/27/23 12:44> Medical History GERD (gastroesophageal reflux disease) Chronic anemia Hyperlipidemia Essential hypertension Kidney stones Intracranial aneurysm Hypertension Surgical History History of lithotripsy History of lumpectomy of right breast Family History Mother Cancer Father Arthritis Social History household members: spouse Smoking Status: Never smoker alcohol intake: never Smoking Status: Never smoker alcohol intake frequency: holidays/special occasions only Substance Use Type: does not use Exam <Shayy Osullivan PA-C - Last Filed: 06/27/23 12:44> Narrative Exam Narrative: Const General:?cooperative, healthy appearing and comfortable [facility] Head:?normal to inspection Ears:?hearing grossly normal bilaterally Nose:?external nose normal Face and sinus:?normal facial exam and sinuses nontender Mouth:?oral mucosae normal Throat:?posterior oropharynx normal Eyes General:?appearance normal, both eyes and all related structures Neck Neck:?normal visual inspection and no lymphadenopathy noted Resp Effort & Inspection:?normal respiratory effort Auscultation:?clear to auscultation bilaterally Cardio Rate:?regular rate Rhythm:?regular rhythm Musculoskeletal No midline tenderness to palpation. There is some muscular tenderness to palpation on the right side of the neck. Patient is able to move her neck, however range of motion is limited by pain. Neuro General:?patient alert, patient awake and patient oriented x3 Initial Vital Signs Initial Vital Signs: Vital Signs Temperature 98.7 F 06/27/23 11:22 Pulse Rate 78 06/27/23 11:22 Respiratory Rate 16 06/27/23 11:22 Blood Pressure 172/76 H 06/27/23 11:22 Pulse Oximetry 99 06/27/23 11:22 Oxygen Delivery Method Room Air 06/27/23 11:22 <Shaun Beatty DO - Last Filed: 06/27/23 13:16> Initial Vital Signs Initial Vital Signs: Vital Signs Temperature 98.7 F 06/27/23 11:22 Pulse Rate 78 06/27/23 11:22 Respiratory Rate 16 06/27/23 11:22 Blood Pressure 172/76 H 06/27/23 11:22 Pulse Oximetry 99 06/27/23 11:22 Oxygen Delivery Method Room Air 06/27/23 11:22 Course <Shayy Osullivan PA-C - Last Filed: 06/27/23 12:44> Orders Ordered: Discontinued Medications Cyclobenzaprine HCl (Cyclobenzaprine 10 Mg Tablet) 10 mg PO NOW ONE Stop: 06/27/23 11:51 Last Admin: 06/27/23 11:56 Dose: 10 mg Documented By: KENNEDY Ketorolac Tromethamine (Ketorolac 30 Mg/Ml Vial) 30 mg IM NOW ONE Stop: 06/27/23 11:51 Last Admin: 06/27/23 11:56 Dose: 30 mg Documented By: KENNEDY Vital Signs Vital signs: Vital Signs - 8 hr 06/27/23 11:22 06/27/23 12:02 06/27/23 12:47 Temperature 98.7 F 97.3 F L Pulse Rate 78 112 H 67 Respiratory Rate 16 18 16 Blood Pressure 172/76 H 119/69 128/54 L Pulse Oximetry 99 98 99 Oxygen Delivery Method Room Air Room Air Room Air <Shaun Beatty DO - Last Filed: 06/27/23 13:16> Orders Ordered: Discontinued Medications Cyclobenzaprine HCl (Cyclobenzaprine 10 Mg Tablet) 10 mg PO NOW ONE Stop: 06/27/23 11:51 Last Admin: 06/27/23 11:56 Dose: 10 mg Documented By: KENNEDY Ketorolac Tromethamine (Ketorolac 30 Mg/Ml Vial) 30 mg IM NOW ONE Stop: 06/27/23 11:51 Last Admin: 06/27/23 11:56 Dose: 30 mg Documented By: KENNEDY Vital Signs Vital signs: Vital Signs - 8 hr 06/27/23 11:22 06/27/23 12:02 06/27/23 12:47 Temperature 98.7 F 97.3 F L Pulse Rate 78 112 H 67 Respiratory Rate 16 18 16 Blood Pressure 172/76 H 119/69 128/54 L Pulse Oximetry 99 98 99 Oxygen Delivery Method Room Air Room Air Room Air MDM - Neck Pain/Injury <Shayy Osullivan PA-C - Last Filed: 06/27/23 12:44> MDM Narrative Medical decision making narrative: 87-year-old female with past medical history GERD, anemia, hyperlipidemia, hypertension presents to the ED with 2 days of right-sided neck pain. Physical exam is most consistent with a musculoskeletal sprain/strain of the neck. There is no midline tenderness, no trauma. No indication for imaging at this time. Will treat with Toradol and Flexeril. Will reassess. Patient endorses good relief with the ketorolac and Flexeril. Will prescribe Flexeril for use at home as needed. Recommend follow-up with PCP as soon as possible. ED return precautions discussed with patient. Patient verbalized understanding. Medical records reviewed: Yes Discharge Plan Departure Patient Disposition: Home Clinical Impression: Neck pain Instructions: DI for Neck Pain Activity Restrictions/Additional Instructions: You were evaluated in the ED today for neck pain. It appears that your symptoms are due to a musculoskeletal sprain/strain of your neck muscles. You experience some relief with ketorolac and Flexeril. You are being prescribed Flexeril for continued use as needed for the next few days. You may also take Tylenol 1000 mg 3 times a day along with Flexeril. Please follow-up with your PCP as soon as possible. Return to the ED if you have worsening symptoms, numbness, tingling, weakness. Prescriptions: New cyclobenzaprine 10 mg tablet 10 mg PO TID PRN (Reason: muscle spasm) 5 Days Qty: 15 0RF No Action lisinopril 10 MG tablet 20 mg PO BID Qty: 0 Patient Comments: patient states one tablet daily raloxifene [Evista] 60 MG tablet 60 mg PO QPM Qty: 0 cholecalciferol (vitamin D3) [Vitamin D3] 1,000 unit Tablet 1,000 unit PO DAILY Qty: 0 sulfasalazine 500 mg tablet 500 mg PO TID folic acid 1 mg tablet 1 mg PO DAILY ferrous sulfate 324 mg (65 mg iron) tablet,delayed release (DR/EC) 324 mg PO DAILY losartan 50 mg tablet 50 mg PO BID nitroglycerin 0.4 mg tablet, sublingual 0.4 mg sublingual Q5MIN MDD 3 Patient Comments: Taken in ED guanfacine 1 mg tablet pantoprazole 20 mg Tablet,Delayed Release (Dr/Ec) 40 mg PO BID Qty: 60 0RF Referrals: Vaibhav Arevalo MD [Primary Care Provider] - Stand Alone Forms: Patient Portal/API ED Sign-out <Shaun Beatty, DO - Last Filed: 06/27/23 13:16> Cosign ED Attending Coswestleyature Attestation: Dr Beatty Co-Sign Statement: I was available for consultation during this patient's emergency department visit. This chart is signed by myself for administrative purposes only. I did not have direct contact with this patient during this visit. They were seen independently by the APC.
[2023-06-27] MEDS: KETOROLAC 30 MG/ML VIAL IM (11:56)
[2023-06-27] MEDS: CYCLOBENZAPRINE 10 MG TABLET PO (11:56)
[2023-06-27 12:02] VITALS: BP 119/69; PULSE 112; RESP 18; O2SAT 98
[2023-06-27 12:47] VITALS: BP 128/54; PULSE 67; RESP 16; TEMP 36.3; O2SAT 99
== END 2023-06-27 12:55 | disposition home or self-care (01) ==
PROVIDERS: Emergency Provider Student in an Organized Health Care Education/Training Program; Family Provider Family Medicine; PCP Family Medicine
DX: M54.2 Cervicalgia (principal)
CPT/HCPCS: 96372; 99283; J1885

== ENCOUNTER 2023-07-21 10:58 | Emergency (ER) | payer MEDICARE, OTHER, SELFPAY ==
[2023-07-21] VITALS (7 sets, daily range): BP systolic 100–150; BP diastolic 55–66; PULSE 53–67; RESP 14; TEMP 36.3; O2SAT 95–100; BMI 16.0
[2023-07-21] MEDS: PANTOPRAZOLE 40 MG VIAL 80 MG IV (11:32)
[2023-07-21 11:38] LABS: Add Manual Diff / Slide Review NO; Basophils Absolute Auto 0 /uL (0-100); Basophils Percent Auto 0.2 % (0-2); Eosinophils Absolute Auto 0 /uL (0-450); Eosinophils Percent Auto 0.1 % (2-4); Hematocrit 34.1 % (36-46); Hemoglobin 11.4 g/dL (12.0-16.0); Lymphocytes Absolute Auto 1100 /uL (1100-4500); Lymphocytes Percent Auto 9.9 % (25-40); Mean Corpuscular HGB Conc 33.6 % (30-36); Mean Corpuscular Hemoglobin 32.4 PG (26-34); Mean Corpuscular Volume 96.4 fL (80-100); Monocytes Absolute Auto 500 /uL (0-900); Monocytes Percent Auto 5.1 % (3-14); Neutrophils Absolute Auto 9100 /uL (1500-7000); Neutrophils Percent Auto 84.7 % (50-75); Platelet Count 174 X10^3/uL (150-400); Red Blood Cell Count 3.54 X10^6/uL (4.0-5.2); Red Cell Distribution Width 15.1 % (11.6-14.8); White Blood Cell Count 10.8 X10^3/uL (4.5-11.0)
[2023-07-21 11:54] LABS: INR 0.9 (0.9-1.3); Prothrombin Time 10.3 SECONDS (9.4-12.5)
[2023-07-21 11:57] LABS: PTT Partial Thromboplastin Tim 30 SECONDS (25.1-36.5)
[2023-07-21 12:01] LABS: Alanine Aminotransferase 13 IU/L (<35); Albumin 4.6 g/dL (3.5-5.0); Albumin Globulin Ratio 1.2 (1.0-2.8); Alkaline Phosphatase 98 U/L (38-126); Aspartate Aminotransferase 30 IU/L (14-36); BUN Creatinine Ratio 19.3 (6-22); Bilirubin Total 0.6 mg/dL (0.2-1.3); Blood Urea Nitrogen 34 mg/dL (7-17); Calcium 9.5 mg/dL (8.4-10.2); Carbon Dioxide 24 mmol/L (22-32); Chloride 103 mmol/L (98-107); Estimated Glomerular Filt Rate 28 mL/min (>60); Globulin 3.7 g/dL (1.7-4.1); Glucose 126 mg/dL (80-110); HEMOLYSIS < 15 (0-50); Potassium 4.3 mmol/L (3.4-5.1); Sodium 137 mmol/L (137-145); Total Protein 8.3 g/dL (6.3-8.2)
--- NOTE | 2023-07-21 12:54 | ED.GIBLEED ---
HPI - GI Bleed General Chief complaint: GI Bleed Stated complaint: abd pain, vaginal bleeding Time Seen by Provider: 07/21/23 12:48 Source: patient Mode of arrival: Ambulatory History of Present Illness HPI Narrative: Patient 8-year-old female history of GERD anemia hyperlipidemia hypertension presents today with 1 episode of bright red blood per rectum. She denies any abdominal pain dizziness or lightheadedness. Although yesterday she said she had some abdominal pain she felt dizzy and fell down hitting the left side of her face. She had 1 bloody bowel movement this morning but has no pain. She is not on anti platelet or anticoagulation medication. She did not lose consciousness or hit her head yesterday. Abdomen is soft today. She denies any chest pain or palpitations. Related Data Home Medications Medication Instructions Recorded Confirmed cholecalciferol (vitamin D3) 25 1,000 unit PO DAILY ##0 05/06/11 05/31/21 mcg (1,000 unit) tablet (Vitamin D3) lisinopril 10 mg tablet 20 mg PO BID ##0 05/06/11 05/31/21 raloxifene 60 mg tablet (Evista) 60 mg PO QPM ##0 05/06/11 05/31/21 ferrous sulfate 324 mg (65 mg 324 mg PO DAILY 11/28/18 05/31/21 iron) tablet,delayed release folic acid 1 mg tablet 1 mg PO DAILY 11/28/18 05/31/21 sulfasalazine 500 mg tablet 500 mg PO TID 11/28/18 05/31/21 guanfacine 1 mg tablet mg 05/06/21 losartan 50 mg tablet 50 mg PO BID 05/06/21 05/31/21 nitroglycerin 0.4 mg sublingual 0.4 mg sublingual Q5MIN 05/06/21 05/31/21 tablet Previous Rx's Medication Instructions Recorded pantoprazole 20 mg tablet,delayed 40 mg (2 x 20 mg) PO BID #60 tabs 05/08/21 release Allergies Allergy/AdvReac Type Severity Reaction Status Date / Time shellfish derived Allergy Hives Verified 07/21/23 11:04 ibuprofen [From MOTRIN] AdvReac Mild UPSET Verified 07/21/23 11:04 STOMACH Patient History Medical History GERD (gastroesophageal reflux disease) Chronic anemia Hyperlipidemia Essential hypertension Kidney stones Intracranial aneurysm Hypertension Surgical History History of lithotripsy History of lumpectomy of right breast Family History Mother Cancer Father Arthritis Social History household members: spouse Smoking Status: Never smoker alcohol intake: never Smoking Status: Never smoker alcohol intake frequency: holidays/special occasions only Substance Use Type: does not use Exam Initial Vital Signs Initial Vital Signs: Vital Signs Temperature 97.4 F L 07/21/23 11:04 Pulse Rate 66 07/21/23 11:04 Respiratory Rate 14 07/21/23 11:04 Blood Pressure 100/55 L 07/21/23 11:04 Pulse Oximetry 97 07/21/23 11:04 Oxygen Delivery Method Room Air 07/21/23 11:04 GENERAL: Thin alert well-appearing 88 old female and in no acute distress. HEENT: Head atraumatic,EOMI, pupils reactive, face symmetric, moist mucous membranes CARDIOVASCULAR: Regular rate and rhythm without murmurs, rubs or gallops. RESPIRATORY: Breath sounds equal bilaterally, no wheezes rales or rhonchi. ABDOMEN: Soft, nontender. Normoactive bowel sounds all 4 quadrants. No guarding or rebound. RECTAL: Guaiac positive some mild dark stool no hemorrhoids no gross blood EXTREMITIES: Normal range of motion, no clubbing or edema. Neurovascularly intact NEUROLOGICAL: Alert and oriented x4.Normal gait and speech. SKIN: Warm, dry, no laceration, no petechiae, no rashes or lesions. Course Orders Ordered: ED Orders 07/21/23 11:15 EKG-12 Lead Stat 07/21/23 11:20 Complete Blood Count AUTO DIFF Stat Comprehensive Metabolic Panel Stat PTT Partial Thromboplastin Dandre Stat Prothrombin Time INR Stat Type and Screen Stat Discontinued Medications Ondansetron HCl (Ondansetron 4 Mg/2 Ml Inj) 4 mg IV NOW PRN PRN Reason: Nausea And Vomiting Pantoprazole Sodium (Pantoprazole 40 Mg Vial) 80 mg IV NOW ONE Stop: 07/21/23 11:08 Last Admin: 07/21/23 11:32 Dose: 80 mg Documented By: ES Vital Signs Vital signs: Vital Signs - 8 hr 07/21/23 12:17 07/21/23 12:17 07/21/23 12:30 Pulse Rate 64 Blood Pressure 123/57 L 118/65 Pulse Oximetry 95 Oxygen Delivery Method Room Air 07/21/23 12:30 07/21/23 13:00 07/21/23 13:01 Pulse Rate 56 L 67 Blood Pressure 146/58 H Pulse Oximetry 100 100 Oxygen Delivery Method Room Air 07/21/23 13:01 07/21/23 13:30 07/21/23 13:31 Pulse Rate 55 L 53 L Blood Pressure Pulse Oximetry 100 95 100 Oxygen Delivery Method 07/21/23 13:31 Pulse Rate Blood Pressure 150/66 H Pulse Oximetry Oxygen Delivery Method MDM - GI Bleed Lab Data 07/21/23 11:20 07/21/23 11:20 Labs: Lab Results 07/21/23 Range/Units 11:20 WBC 10.8 (4.5-11.0) X10^3/uL RBC 3.54 L (4.0-5.2) X10^6/uL Hgb 11.4 L (12.0-16.0) g/dL Hct 34.1 L (36-46) % MCV 96.4 (80-100) fL MCH 32.4 (26-34) PG MCHC 33.6 (30-36) % RDW 15.1 H (11.6-14.8) % Plt Count 174 (150-400) X10^3/uL Neut % (Auto) 84.7 H (50-75) % Lymph % (Auto) 9.9 L (25-40) % [place] % (Auto) 5.1 (3-14) % Eos % (Auto) 0.1 L (2-4) % Baso % (Auto) 0.2 (0-2) % Neut # (Auto) 9100 H (3790-2885) /uL Lymph # (Auto) 1100 (7762-0284) /uL [place] # (Auto) 500 (0-900) /uL Eos # (Auto) 0 (0-450) /uL Baso # (Auto) 0 (0-100) /uL PT 10.3 (9.4-12.5) SECONDS INR 0.9 (0.9-1.3) APTT 30 (25.1-36.5) SECONDS Sodium 137 (137-145) mmol/L Potassium 4.3 (3.4-5.1) mmol/L Chloride 103 (98-107) mmol/L Carbon Dioxide 24 (22-32) mmol/L BUN 34 H (7-17) mg/dL Creatinine 1.76 H (0.52-1.04) mg/dL Estimated GFR 28 L (>60) mL/min BUN/Creatinine Ratio 19.3 (6-22) Glucose 126 H (80-110) mg/dL Calcium 9.5 (8.4-10.2) mg/dL Total Bilirubin 0.6 (0.2-1.3) mg/dL AST 30 (14-36) IU/L ALT 13 (<35) IU/L Alkaline Phosphatase 98 (38-126) U/L Total Protein 8.3 H (6.3-8.2) g/dL Albumin 4.6 (3.5-5.0) g/dL Globulin 3.7 (1.7-4.1) g/dL Albumin/Globulin Ratio 1.2 (1.0-2.8) Blood Type O Positive Antibody Screen Negative ECG Data Interpretation: Normal sinus rhythm rate 89 ND interval 146 QRS [address] changes no T-wave inversions MDM Narrative Medical decision making narrative: Patient 88 female significant past medical history presents today with 1 episode of bright red blood per rectum. Yesterday she had episode of abdominal pain dizziness and passed out. Today she is neurologically intact she is not on antiplatelet or anticoagulation medication. Abdomen is soft nontender. Rectal exam is Hemoccult positive but slightly dark not gross red or positive. Hemoglobin 11.4 hematocrit 34.1 previously 13.139.1 however her baseline hemoglobin seems to be around 11/34. She is chronic kidney disease which is stable today without significant change. Abdomen is soft do not really feel need for imaging today. She would no injury from her fall yesterday. She is complaining of some mild neck pain but was here in June with the same she is requesting more cyclobenzaprine. At this time I recommend outpatient colonoscopy to monitor bleeding and return if worsened. Discharge Plan Departure Patient Disposition: Home Clinical Impression: Painless rectal bleeding Instructions: Gastrointestinal Bleeding Activity Restrictions/Additional Instructions: *You have been diagnosed with rectal bleeding *What to do: At this time please monitor for worsening or bleeding. You do need a colonoscopy, please contact general surgery and or your PCP *Continue to take medications as directed *Follow up with your primary care provider in 2-3 days or call [phone] [facility] *Return to ER if you should have frequent episodes of rectal bleeding large amounts or any new, worsening or concerning symptoms Prescriptions: No Action lisinopril 10 MG tablet 20 mg PO BID Qty: 0 Patient Comments: patient states one tablet daily raloxifene [Evista] 60 MG tablet 60 mg PO QPM Qty: 0 cholecalciferol (vitamin D3) [Vitamin D3] 1,000 unit Tablet 1,000 unit PO DAILY Qty: 0 sulfasalazine 500 mg tablet 500 mg PO TID folic acid 1 mg tablet 1 mg PO DAILY ferrous sulfate 324 mg (65 mg iron) tablet,delayed release (DR/EC) 324 mg PO DAILY losartan 50 mg tablet 50 mg PO BID nitroglycerin 0.4 mg tablet, sublingual 0.4 mg sublingual Q5MIN MDD 3 Patient Comments: Taken in ED guanfacine 1 mg tablet pantoprazole 20 mg Tablet,Delayed Release (Dr/Ec) 40 mg PO BID Qty: 60 0RF Referrals: Vaibhav Arevalo MD [Primary Care Provider] - Stand Alone Forms: Patient Portal/API
--- NOTE | 2023-07-21 13:14 | PC.NURSE ---
Dr. elliott at bedside w/ pt and family
== END 2023-07-21 13:51 | disposition home or self-care (01) ==
PROVIDERS: Emergency Provider Emergency Medicine; Family Provider Family Medicine; PCP Family Medicine
DX: K62.5 Hemorrhage of anus and rectum (principal); K21.9 Gastro-esophageal reflux disease without esophagitis; E78.5 Hyperlipidemia, unspecified; I10 Essential (primary) hypertension
CPT/HCPCS: 36415; 80053; 85025; 85610; 85730; 86850; 86900; 86901; 93005; 93010; 96374; 96375; 99284; C9113

== ENCOUNTER → 2023-08-01 16:00 | Outpatient (CLI) | payer MEDICARE, OTHER, SELFPAY ==
--- NOTE | 2023-08-01 | DI.RAD.S_ITS ---
PROCEDURE: XR SHOULDER RT MIN 2V INDICATIONS: Pain TECHNIQUE: 3 views of the shoulder were acquired. COMPARISON: None. FINDINGS: Bones: No fractures or dislocations. No suspicious bony lesions. Mild degenerative changes are present at the acromioclavicular and glenohumeral joint. Visualized ribs appear intact. Soft tissues: No suspicious soft tissue calcifications. IMPRESSION: Degenerative change. No acute radiographic findings. Dictated by: Asha Brownlee M.D. on 08/01/2023 at 16:44 Approved by: Asha Brownlee M.D. on 08/01/2023 at 16:45
--- NOTE | 2023-08-01 16:14 | DI.RAD.S_ITS ---
/PROCEDURE: XR CERVICAL SPINE 2V OR 3V INDICATIONS: PAIN TECHNIQUE: 2 view(s) of the cervical spine were acquired. COMPARISON: None. FINDINGS: Bones: There is anterior fusion and discectomy from C3-C6. No hardware fracture. Severe degenerative changes are present throughout the posterior aspect of the cervical spine with extensive facet sclerosis and anterior osteophytosis at C2-3 and C6-7. No hardware fracture or loosening. No bony fracture appreciated. There is limited visualization of the odontoid. Soft tissues: No prevertebral soft tissue swelling. IMPRESSION: Markedly limited study given postsurgical change and extensive degenerative change. If further characterization is warranted, CT of the cervical spine could be used. Dictated by: Asha Brownlee M.D. on 08/01/2023 at 16:39 Approved by: Asha Brownlee M.D. on 08/01/2023 at 16:40
== END ==
PROVIDERS: Family Provider Family Medicine; PCP Family Medicine; Referring Provider Family Medicine; Visit Provider Family Medicine
DX: M47.812 Spondylosis without myelopathy or radiculopathy, cervical region (principal); M25.512 Pain in left shoulder; M54.2 Cervicalgia; Z98.1 Arthrodesis status
CPT/HCPCS: 72040; 73030

== ENCOUNTER → 2023-08-17 11:42 | Outpatient (CLI) | payer MEDICARE, OTHER, SELFPAY ==
--- NOTE | 2023-08-17 | DI.US.S_ITS ---
PROCEDURE: [facility] VENOUS LOW EXTREM RT INDICATIONS: PAIN TECHNIQUE: Real-time imaging, as well as color and pulse Doppler interrogation, were performed of the lower extremity deep veins from the inguinal ligament to the popliteal fossa, with documentation of the visualized calf veins. COMPARISON: [facility], , [facility] VENOUS LOW EXTREM RT, 01/31/2023, 14:10. FINDINGS: The common femoral, femoral, and popliteal veins are visualized and are are normally compressible, and free of intraluminal thrombus. Of note, the calf and ankle veins are not well visualized given the patient's diminutive body habitus. Color and pulse Doppler demonstrate normal phasic intraluminal flow. There is normal augmentation response to distal compression maneuver. IMPRESSION: No findings of lower extremity deep venous thrombosis where visualized. Dictated by: Asha Brownlee M.D. on 08/17/2023 at 14:04 Approved by: Asha Brownlee M.D. on 08/17/2023 at 14:04
--- NOTE | 2023-08-17 | DI.RAD.S_ITS ---
PROCEDURE: XR CHEST 2V INDICATIONS: abnormal weight loss TECHNIQUE: 2 views of the chest were acquired. COMPARISON: [facility], CR, XR CHEST 1V, 04/29/2023, 11:40. FINDINGS: Surgical changes and devices: Postsurgical changes of prior ACDF. Surgical clips in right upper quadrant compatible with prior cholecystectomy. Lungs and pleura: There is hyperinflation and flattening of the hemidiaphragms. Lungs are otherwise clear. No pleural effusions or pneumothorax. Mediastinum: Mediastinal contours are normal. Heart size is normal. Bones and chest wall: No suspicious bony abnormalities. Soft tissues appear unremarkable. Diffuse osteopenia. No findings of acute compression fractures. IMPRESSION: Chest without acute cardiopulmonary abnormalities. Findings suggestive of chronic obstructive pulmonary physiology. Dictated by: Gregg Hobbs M.D. on 08/17/2023 at 14:25 Approved by: Gregg Hobbs M.D. on 08/17/2023 at 14:26
== END ==
PROVIDERS: Family Provider Family Medicine; PCP Family Medicine; Referring Provider Family Medicine
DX: R63.4 Abnormal weight loss (principal); M79.661 Pain in right lower leg
CPT/HCPCS: 71046; 93971

== ENCOUNTER → 2024-02-29 14:06 | Outpatient (CLI) | payer MEDICARE, OTHER, SELFPAY ==
--- NOTE | 2024-02-29 14:08 | DI.RAD.S_ITS ---
PROCEDURE: XR LUMBAR SPINE 2-3V INDICATIONS: Other intervertebral disc degeneration, lumbar region TECHNIQUE: 3 views of the lumbar spine were acquired. COMPARISON: None. FINDINGS: Bones: Straightening of the lumbar spine. Mild retrolisthesis of L3 on L4. Vertebral body height of the lumbar spine are well maintained. Mild anterior degenerative wedging of T11. Multilevel large bridging osteophyte of the lumbar spine. Multilevel, moderate degenerative disc disease of the lumbar spine. Moderate lower lumbar facet arthropathy. Soft tissues: Overlying bowel gas pattern is normal. No suspicious soft tissue calcifications. IMPRESSION: No acute bony abnormality. Dictated by: Myra Feliciano M.D. on 02/29/2024 at 17:59 Approved by: Myra Feliciano M.D. on 02/29/2024 at 18:01
--- NOTE | 2024-02-29 14:08 | DI.RAD.S_ITS ---
PROCEDURE: XR THORACIC SPINE 2V INDICATIONS: Other intervertebral disc degeneration, lumbar region TECHNIQUE: 3 views of the thoracic spine were acquired. COMPARISON: None. FINDINGS: Bones: Anterior fusion instrumentation of the lower cervical spine, incompletely evaluated. Mild dextroscoliosis of the thoracic spine. Cervical thoracic junction is not well visualized on the lateral view. Calcification of the anterior longitudinal ligament of the thoracic spine. Visualized vertebral body height of the thoracic spine is well maintained. Multilevel, mild degenerative disc disease of the thoracic spine. Soft tissues: No paravertebral stripe thickening. IMPRESSION: No acute bony abnormality. Dictated by: Myra Feliciano M.D. on 02/29/2024 at 18:01 Approved by: Myra Feliciano M.D. on 02/29/2024 at 18:04
== END ==
PROVIDERS: Family Provider Family Medicine; PCP Family Medicine; Referring Provider Family Medicine; Visit Provider Family Medicine
DX: M51.36 Other intervertebral disc degeneration, lumbar region (principal); M51.34 Other intervertebral disc degeneration, thoracic region; M47.816 Spondylosis without myelopathy or radiculopathy, lumbar region; M41.9 Scoliosis, unspecified; Z98.1 Arthrodesis status
CPT/HCPCS: 72070; 72100

== ENCOUNTER → 2024-04-12 11:34 | Outpatient (CLI) | payer MEDICARE, OTHER, SELFPAY ==
--- NOTE | 2024-04-12 11:35 | DI.CT.S_ITS ---
PROCEDURE: CT ABDOMEN WO/W CON INDICATIONS: CONGENITAL PANCREATIC CYST TECHNIQUE: Both before and after the administration of intravenous contrast, 3 mm thick pancreatic-phase images acquired from the diaphragm to the iliac crests. 3 mm thick coronal and sagittal reformats were performed. For radiation dose reduction, the following was used: automated exposure control, adjustment of mA and/or kV according to patient size. COMPARISON: [facility], MR, MR ABDOMEN WO/W CON, 11/30/2022, 9:50. [facility], CT, CT CHEST ABDOMEN WO CON, 06/09/2021, 13:22. [facility], CT, CT ANGIO CHEST PE PROTOCOL, 05/30/2021, 23:54. [facility], CT, CT ABDOMEN PELVIS W CON, 04/23/2020, 15:30. [facility], CT, CT KIDNEY URETER BLADDER (KUB), 04/11/2019, 21:44. [facility], CT, ABDOMEN/PELVIS WITH CONTRAST, 01/02/2015, 12:05. FINDINGS: Image quality: Diagnostic. Lower chest: Unremarkable. ABDOMEN: Pancreas: No solid mass. No ductal dilation. A previously identified pancreatic tail cyst with a thin internal septation is again seen, and has not enlarged in size. This was initially well visualized during contrast-enhanced CT scanning 04/23/20 without interval enlargement. It can faintly be seen on several earlier noncontrast CT scans. Liver: No solid mass. Gallbladder: Previously resected Biliary ducts: No biliary dilation. Adrenal Glands: No nodules. Spleen: Size is within normal limits. Kidneys and Ureters: No hydronephrosis. No solid mass. No complex renal cystic lesion which requires follow up. Stomach and Bowel: Normal colonic caliber, without significant wall thickening. Peritoneum: No abnormal intraperitoneal fluid. No free air. Ventral Wall: No hernia. Abdominal Nodes: No retroperitoneal or mesenteric adenopathy by size criteria. Vessels: Aorta and inferior vena cava are normal in size. Bones: No aggressive osseous abnormality. IMPRESSION: Chronically present cyst with a single thin internal septation at the pancreatic tail near the lower border of the splenic hilum. This structure has been unchanged since at least 04/23/20, appears benign, and no follow-up is recommended. No new abnormality has developed elsewhere. Dictated by: Jian Sorto M.D. on 04/12/2024 at 15:08 Approved by: Jian Sorto M.D. on 04/12/2024 at 15:15
[2024-04-12 12:07] LABS: Estimated Glomerular Filt Rate 43 mL/min (>60)
== END ==
PROVIDERS: Radiology Diagnostic Radiology; Family Provider Family Medicine; PCP Family Medicine; Referring Provider Family Medicine; Visit Provider Family Medicine
DX: Q45.2 Congenital pancreatic cyst (principal); R07.9 Chest pain, unspecified; M51.36 Other intervertebral disc degeneration, lumbar region
CPT/HCPCS: 36415; 74170; 82565; Q9967

== ENCOUNTER → 2025-02-26 11:33 | Outpatient (CLI) | payer MEDICARE, OTHER, SELFPAY ==
--- NOTE | 2025-02-26 | DI.CT.S_ITS ---
PROCEDURE: CT HEAD/BRAIN WO CON INDICATIONS: FALL, DIZZINESS, NECK PAIN TECHNIQUE: Noncontrast 4.5 mm thick angled axial sections acquired from the foramen magnum to the vertex, with coronal and sagittal reformats. For radiation dose reduction, the following was used: automated exposure control, adjustment of mA and/or kV according to patient size. COMPARISON: [facility], CT, CT HEAD WITHOUT CONTRAST, 11/28/2018, 16:39. [facility], CT, CT HEAD WITHOUT CONTRAST, 05/11/2024, 9:05. FINDINGS: Image quality: Diagnostic. CSF spaces: Basal cisterns are patent. No extra-axial fluid collections. The ventricles are symmetric in size and shape. 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 No intracranial bleed. Stable 2.1 by 1.9 centimeter calcified anterior left frontal, parafalcine extra-axial mass which likely represents a meningioma. There is cerebral volume loss, with resultant ventricular and sulcal prominence. There are periventricular and deep white matter chronic small vessel ischemic changes. There is intracranial internal carotid artery atherosclerosis. Skull and face: Calvarium and visualized facial bones appear intact, without suspicious lesions. Sinuses: Visualized sinuses and mastoids are clear. IMPRESSION: No acute intracranial pathology. Dictated by: Silvia Crawford MD, PhD on 02/26/2025 at 12:45 Approved by: Silvia Crawford MD, PhD on 02/26/2025 at 12:48
--- NOTE | 2025-02-26 | DI.CT.S_ITS ---
PROCEDURE: CT CERVICAL SPINE WO CON INDICATIONS: FALL, DIZZINESS, NECK PAIN TECHNIQUE: Noncontrast 3 mm thick sections acquired from the skull base to the T4 level. Sagittal and coronal reformats were then constructed. For radiation dose reduction, the following was used: automated exposure control, adjustment of mA and/or kV according to patient size. COMPARISON: None. FINDINGS: Image quality: Excellent. Bones: C3-C6 ACDF changes. Fixation hardware is in expected position and is intact. No fractures or dislocations. There is trace, approximately 2 millimeters of C6-C7 anterolisthesis and 3 millimeters of T1-T2 anterolisthesis. Spine degenerative disc disease and facet arthropathy. Visualized superior ribs are intact. Soft tissues: Prevertebral soft tissues are normal in thickness. No paravertebral hematomas. No apical pneumothoraces. IMPRESSION: No fracture. No acute osseous lesion. If symptoms and/or clinical suspicion for pathology persists, evaluation with MRI should be considered for further assessment. Dictated by: Silvia Crawford MD, PhD on 02/26/2025 at 12:36 Approved by: Silvia Crawford MD, PhD on 02/26/2025 at 12:39
== END ==
PROVIDERS: Family Provider Family Medicine; PCP Family Medicine; Referring Provider Family Medicine; Visit Provider Family Medicine
DX: M47.812 Spondylosis without myelopathy or radiculopathy, cervical region (principal); G93.9 Disorder of brain, unspecified; R42 Dizziness and giddiness; I65.29 Occlusion and stenosis of unspecified carotid artery; M50.30 Other cervical disc degeneration, unspecified cervical region; Z98.1 Arthrodesis status
CPT/HCPCS: 70450; 72125

== ENCOUNTER → 2025-07-18 08:38 | Outpatient (CLI) | payer MEDICARE, OTHER, SELFPAY ==
--- NOTE | 2025-07-18 08:41 | DI.CT.S_ITS ---
PROCEDURE: CT CERVICAL SPINE WO CON INDICATIONS: Headache; neck pain TECHNIQUE: Noncontrast 3 mm thick sections acquired from the skull base to the T4 level. Sagittal and coronal reformats were then constructed. Oblique axial images were also reformatted through the disc levels. For radiation dose reduction, the following was used: automated exposure control, adjustment of mA and/or kV according to patient size. COMPARISON: [facility], CT, CT CERVICAL SPINE WO CON, 02/26/2025, 11:49. [facility], CT, CT HEAD/BRAIN WO CON, 07/18/2025, 9:05. [facility], CR, XR CERVICAL SPINE 2V OR 3V, 08/01/2023, 16:13. FINDINGS: Image quality: Excellent. Bones: No fractures or dislocations. Visualized superior ribs are intact. Anterior fixation hardware can be seen C3 through C6. Focal degenerative change is seen involving the C1-C2 interface anteriorly. Focal degenerative change is also seen at the C6-C7 level. Soft tissues: Prevertebral soft tissues are normal in thickness. No paravertebral hematomas. No apical pneumothoraces. Dense atherosclerotic calcification is noted. IMPRESSION: Unremarkable C3 through C6 anterior fixation hardware. Underlying cervical spine degenerative changes are seen. Dictated by: Juan Carlos Choi M.D. on 07/18/2025 at 15:11 Approved by: Juan Carlos Choi M.D. on 07/18/2025 at 15:12
--- NOTE | 2025-07-18 08:41 | DI.CT.S_ITS ---
PROCEDURE: CT HEAD/BRAIN WO CON INDICATIONS: Headache; neck pain TECHNIQUE: Noncontrast 4.5 mm thick angled axial sections acquired from the foramen magnum to the vertex, with coronal and sagittal reformats. For radiation dose reduction, the following was used: automated exposure control, adjustment of mA and/or kV according to patient size. COMPARISON: [facility], CT, CT HEAD WITHOUT CONTRAST, 11/28/2018, 16:39. [facility], CT, CT HEAD/BRAIN WO CON, 11/15/2022, 12:40. [facility], CT, CT HEAD WITHOUT CONTRAST, 05/11/2024, 9:05. [facility], CT, CT CERVICAL SPINE WO CON, 07/18/2025, 9:05. [facility], CT, CT HEAD/BRAIN WO CON, 02/26/2025, 11:49. FINDINGS: Image quality: Diagnostic. CSF spaces: Basal cisterns are patent. No extra-axial fluid collections. The ventricles are symmetric in size and shape. Brain: No intracranial bleeds. There is a densely calcified meningioma seen along the left falx anteriorly, measuring 22 x 19 mm in greatest axial dimension. Mild associated mass effect is seen. There is cerebral volume loss, with resultant ventricular and sulcal prominence. There are periventricular and deep white matter chronic small vessel ischemic changes. There is intracranial internal carotid artery atherosclerosis. Aneurysm coils are again seen involving the anterior [id number]. Skull and face: Calvarium and visualized facial bones appear intact, without suspicious lesions. Sinuses: Visualized sinuses and mastoids are clear. IMPRESSION: No acute intracranial pathology. Stable anterior [id number] aneurysm coils. Stable since a calcified meningioma again seen. Dictated by: Juan Carlos Choi M.D. on 07/18/2025 at 15:09 Approved by: Juan Carlos Choi M.D. on 07/18/2025 at 15:10
== END ==
PROVIDERS: Family Provider Family Medicine; PCP Family Medicine; Referring Provider Family Medicine; Visit Provider Family Medicine
DX: I60.9 Nontraumatic subarachnoid hemorrhage, unspecified (principal); D32.0 Benign neoplasm of cerebral meninges; R51.9 Headache, unspecified; I65.29 Occlusion and stenosis of unspecified carotid artery; M47.812 Spondylosis without myelopathy or radiculopathy, cervical region; M54.2 Cervicalgia; Z98.1 Arthrodesis status
CPT/HCPCS: 70450; 72125